=== PATIENT | male | born 1965 | race Caucasian/White ===

== ENCOUNTER 2016-06-19 09:26 | Emergency (ER) | payer OTHER ==
[~2016-06-19] VITALS: Ht 157.5 cm; Wt 48.0 kg
[~2016-06-19 09:26] MED LIST: APIX5TAB PO; ASPI-664 PO; CALC0.255 PO; CHOL20003 PO; ESOM40CA PO; HYDR4TAB18 PO
[2016-06-19 09:33] VITALS: Ht 157.5 cm; Wt 48.0 kg
[2016-06-19] MEDS ORDERED: HYDROmorphONE 1 MG/ML SYG IV STA ×2 (10:08→11:58)
[2016-06-19 11:00] LABS: INR 1.05; PROTIME 13.7 Sec (12.2-14.2); PT RATIO 1.1
[2016-06-19 11:01] LABS: PARTIAL THROMBOPLASTIN TIME 37.9 Sec (25.0-35.0)
[2016-06-19 11:03] LABS: CHLORIDE 97 mmol/L (97-110); POTASSIUM 4.3 mmol/L (3.5-5.1); SODIUM 141 mmol/L (135-144)
[2016-06-19 11:06] LABS: ANION GAP 27 (8-16); BLOOD UREA NITROGEN 68 mg/dl (7-20); CARBON DIOXIDE 21 mmol/L (21-31); CREATININE 9.24 mg/dl (0.61-1.24)
[2016-06-19 11:07] LABS: CALCIUM 7.3 mg/dl (8.4-10.2); GLUCOSE 84 mg/dl (70-220)
[2016-06-19 11:28] LABS: TROPONIN-I < 0.012 ng/ml (0.00-0.12)
--- NOTE | 2016-06-19 11:29 | RADRPT ---
PROCEDURE: Chest x-ray CLINICAL INDICATION: Pain. TECHNIQUE: One-view frontal. COMPARISON: 05/20/2016 FINDINGS: The cardiac silhouette is normal. No infiltrates are noted. No hilar abnormalities are identified. No pneumothorax or pleural effusions are visualized. Tunneled left jugular approach dialysis catheter with the tip in the right atrium is again noted. Mild aortic calcification/atherosclerosis is noted. IMPRESSION: 1. No active cardiopulmonary changes. RPTAT: HH .Say Quintana MD, MD Date Time Electronically viewed and signed by .Say Quintana MD, MD on 06/19/2016 11:29 .G/
--- NOTE | 2016-06-19 11:51 | RADRPT ---
PROCEDURE: CT Brain without contrast. CLINICAL INDICATION: Headache, syncope TECHNIQUE: Routine CT scan of the brain was performed on a high resolution multi detector scanner without intravenous contrast. One or more of the following dose reduction techniques were used: Auto mated exposure control; Adjustment of the mA and/or kV according to patient size; Use of iterative r econstruction technique. CTDI = 44 mGy. DLP = 720 mGy-cm. COMPARISON: No prior relevant examinations are available for comparison. FINDINGS: Hemorrhage: No evidence of intracranial hemorrhage. Acute ischemic changes: No evidence of acute ischemic changes. Mass effect/Midline shift: None. Parenchymal volume: Within normal limits for age. Ventricular system: Concordant with parenchymal volume. Chronic changes: Mild chronic-appearing microvascular ischemic changes of the supratentorial white m atter. Small chronic appearing lacunar infarcts versus dilated perivascular spaces of the bilateral basal ganglia are present measuring 1 - 3 mm.Atherosclerotic calcifications of the cavernous portion s of both internal carotid arteries are present. Extracranial soft tissues: Unremarkable. Calvarium: No fractures. 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 Paranasal sinuses: Visualized paranasal sinuses are clear. Mastoid air cells: Visualized mastoid air cells are clear. IMPRESSION: No acute intracranial abnormalities. Mild chronic-appearing microvascular ischemic changes of the supratentorial white matter with dilate d perivascular spaces versus small chronic lacunar infarcts of the bilateral basal ganglia. RPTAT: AADD .Ry Mace MD, MD Date Time Electronically viewed and signed by .Ry Mace MD, on 06/19/2016 11:50 .B/
--- NOTE | 2016-06-19 12:01 | ERD ---
ER Documentation Chief Complaint Date/Time DATE: 06/19/16 TIME: 11:59 Chief Complaint SYNCOPE - HIT HIS HEAD ; FEELS DIZZY; NAUSEA AND HEAD PAIN HPI This is a 51-year-old male who presents to the emergency room for evaluation of a syncopal episode. The patient states that he was walking to the refrigerator felt dizzy and the next he knew he woke up on the ground. The patient does state that he has a history of hypertension and end-stage renal disease. He is supposed to go to dialysis today however he called his dialysis center and they told him to come to the emergency room for evaluation of syncope. This patient is denying any active chest pain or palpitations at this time. ROS All systems reviewed and are negative except as per history of present illness. Medications Home Meds Active Scripts Aspirin* (Aspirin* EC) 81 Mg Tablet., 81 MG PO DAILY, #100 TAB Prov:DAYDAY DODSON MD 05/03/16 Apixaban* (Eliquis*) 5 Mg Tablet, 2.5 MG PO BID for 90 Days, #180 TAB Prov:DAYDAY DODSON MD 05/03/16 Calcitriol* (Rocaltrol*) 0.25 Mcg Cap, 0.75 MCG PO BID for 30 Days, BOTTLE Prov:PHAN FITZGERALD MD 10/10/14 Reported Medications Hydromorphone Hcl* (Dilaudid*) 4 Mg Tablet, 4 MG PO QID Y for PAIN, TAB 02/20/16 Esomeprazole Mag Trihydrate (Nexium) 40 Mg Capsule.dr, 40 MG PO DAILY, CAP 03/05/15 Cholecalciferol (Vitamin D3) (VITAMIN D-3) 2,000 Unit Capsule, 2000 UNIT PO DAILY 11/08/14 Allergies Allergies: Coded Allergies: morphine (Verified Allergy, Mild, 05/20/16) PMhx/Soc History of Surgery: Yes (l. permacath placved,i&d of neck) Anesthesia Reaction: Yes (,vomiting) Hx Neurological Disorder: Yes (syncope) Hx Respiratory Disorders: No Hx Cardiac Disorders: Yes (htn) Hx Psychiatric Problems: Yes (depression) Hx Miscellaneous Medical Probl: Yes (gastritis, diverticulosis, renal failure with dialysis tues, thrus, sat) Hx Alcohol Use: No Hx Substance Use: No Hx Tobacco Use: No Smoking Status: Never smoker Physical Exam Vitals Vital Signs Date Time Temp Pulse Resp B/P Pulse Ox O2 Delivery O2 Flow Rate FiO2 06/19/16 09:33 97.0 97 19 129/78 98 Physical Exam INITIAL VITAL SIGNS: Reviewed by me GENERAL: The patient is well developed and appropriate for usual state of health in no apparent distress HEENT: Pupils equal, round, and reactive to light. EOMI. There is no scleral icterus. NECK: C-spine is soft and supple, there is no meningismus. There is no cervical lymphadenopathy. LUNGS: Clear to auscultation bilaterally. There are no rales, wheezes or rhonchi. HEART: Regular rate and rhythm, no murmurs, clicks, rubs or gallops. ABDOMEN: Soft, non-tender, non-distended. There are bowel sounds in all four quadrants. No rebound or guarding. EXTREMITIES: There is no peripheral cyanosis or edema. No focal swelling or erythema. NEUROLOGICAL: The patient moves all four extremities with 5/5 strength. Cranial nerves II - XII are intact. Normal gait. Alert and oriented SKIN: Dialysis catheter in the left chest wall, there is no apparent rash or petechiae. HEME/LYMPHATIC: There is no evidence of excessive bruising or lymphedema. PSYCHIATRIC: The patient does not appear anxious or depressed. Result Diagram: 06/19/16 1030 Results 24 hrs Laboratory Tests Test 06/19/16 10:30 Activated Partial Thromboplast Time 37.9Sec Anion Gap 27 Blood Urea Nitrogen 68mg/dl Calcium Level 7.3mg/dl Carbon Dioxide Level 21mmol/L Chloride Level 97mmol/L Creatinine 9.24mg/dl Glucose Level 84mg/dl INR International Normalized Ratio 1.05 Potassium Level 4.3mmol/L Prothrombin Time 13.7Sec Prothrombin Time Ratio 1.1 Sodium Level 141mmol/L Troponin I < 0.012ng/ml Current Medications Medications (Trade) Dose Ordered Sig/Evelina Route PRN Reason Start Time Stop Time Status Last Admin Dose Admin Hydromorphone HCl (Dilaudid) 0.5 mg ONCE STAT IV 06/19/16 10:08 06/19/16 10:09 DC 06/19/16 10:35 Procedures/MDM EKG: Rate/Rhythm: [Normal Sinus Rhythm] QRS, ST, T-waves: [No changes consistent w/ acute ischemia] Impression: [No evidence of ischemia or arrhythmia] Chest X-ray 1V Interpreted by me: Soft Tissue: No acute abnormalities Bones: No acute abnormalities Mediastinum/Cardiac Silhouette/Lungs: [No acute abnormalities] CT head without: No stroke no bleed This 51-year-old male presents to the emergency room for evaluation of a syncopal episode. This patient has a nonischemic EKG, normal troponin. His x- rays do not reveal any pulmonary edema. CT was has not revealed any stroke or bleed. This patient will be transferred under the care of Dr. Eng at [facility]. This patient's pain is controlled with Dilaudid. Departure Diagnosis: Primary Impression: Syncope Additional Impression: Chronic pain Condition: Stable SYL DYKES DO Jun 19, 2016 12:01
[2016-06-19 12:07] LABS: BASOPHILS % 0.4 % (0.0-2.0); EOSINOPHILS # 0.1 10^3/ul (0.0-0.5); EOSINOPHILS % 1.8 % (0.0-7.0); HEMATOCRIT 42.7 % (42.0-52.0); HEMOGLOBIN 13.4 g/dl (14.0-18.0); LYMPHOCYTES # 1.4 10^3/ul (0.8-2.9); LYMPHOCYTES % 17.8 % (15.0-51.0); MEAN CORPUSCULAR HEMOGLOBIN 24.6 pg (29.0-33.0); MEAN CORPUSCULAR HGB CONC 31.3 g/dl (32.0-37.0); MEAN CORPUSCULAR VOLUME 78.7 fl (82.0-101.0); MEAN PLATELET VOLUME 7.9 fl (7.4-10.4); MONOCYTE # 0.9 10^3/ul (0.3-0.9); MONOCYTES % 11.3 % (0.0-11.0); NEUTROPHIL # 5.2 10^3/ul (1.6-7.5); NEUTROPHILS % 68.7 % (39.0-77.0); PLATELET COUNT 426 10^3/UL (140-440); RED BLOOD COUNT 5.42 10^6/ul (4.70-6.10); RED CELL DISTRIBUTION WIDTH 18.9 % (11.5-14.5); UNCORRECTED WBC 7.6 10^3/ul (4.8-10.8); WHITE BLOOD COUNT 7.6 10^3/ul (4.8-10.8)
[2016-06-19 12:10] LABS: CONDITION 1; LH ANALYZER COMMENTS 1
[2016-06-19 13:12] VITALS: BP 95/63; PULSE 80; RESP 18; TEMP 98.2
== END 2016-06-19 13:30 | disposition short-term general hospital (02) ==
LOC: E/R 09:26
DX: R55 Syncope and collapse (principal); G89.29 Other chronic pain; I12.0 Hypertensive chronic kidney disease with stage 5 chronic kidney disease or end stage renal disease; N18.6 End stage renal disease; Z99.2 Dependence on renal dialysis; Z79.82 Long term (current) use of aspirin
CPT/HCPCS: 36415; 70450; 71010; 80048; 84484; 85025; 85610; 85730; 93005; 96374; 96376; J1170; Z7502

== ENCOUNTER 2016-07-20 14:58 | Emergency (ER) | payer OTHER ==
[~2016-07-20] VITALS: Wt 45.6 kg
[2016-07-20] MEDS ORDERED: ACETAMINOPHEN 325 MG TAB PO ONE (16:30)
[2016-07-20 16:37] LABS: BASOPHILS % 0.3 % (0.0-2.0); EOSINOPHILS % 0.3 % (0.0-7.0); HEMATOCRIT 49.9 % (42.0-52.0); HEMOGLOBIN 15.6 g/dl (14.0-18.0); LYMPHOCYTES # 1.3 10^3/ul (0.8-2.9); LYMPHOCYTES % 12.8 % (15.0-51.0); MEAN CORPUSCULAR HEMOGLOBIN 24.9 pg (29.0-33.0); MEAN CORPUSCULAR HGB CONC 31.4 g/dl (32.0-37.0); MEAN CORPUSCULAR VOLUME 79.4 fl (82.0-101.0); MONOCYTE # 0.4 10^3/ul (0.3-0.9); MONOCYTES % 4.5 % (0.0-11.0); NEUTROPHIL # 8.1 10^3/ul (1.6-7.5); NEUTROPHILS % 82.1 % (39.0-77.0); PLATELET COUNT 400 10^3/UL (140-440); RED BLOOD COUNT 6.28 10^6/ul (4.70-6.10); UNCORRECTED WBC 9.9 10^3/ul (4.8-10.8); WHITE BLOOD COUNT 9.9 10^3/ul (4.8-10.8)
[2016-07-20 16:38] LABS: CONDITION 1; LH ANALYZER COMMENTS 1
[2016-07-20 16:47] LABS: INR 1.13; PROTIME 14.5 Sec (12.2-14.2); PT RATIO 1.1
--- NOTE | 2016-07-20 16:49 | RADRPT ---
PROCEDURE: CT Brain without. CLINICAL INDICATION: Headache, syncope. TECHNIQUE: A CT of the brain was performed on multidetector high-resolution CT scanner utilizing a xial sections from the skull base through the vertex without contrast. The scan was reviewed in sof t tissue brain and high frequency resolution bone algorithm windows. Images were reviewed on a high -resolution PACS workstation. One or more the following does reduction techniques were utilized: Aut omated exposure control, adjustment of the mA/ or kV according to patient's size, or use of iterativ e reconstruction technique. The exam CTDI and the DLP are not provided. COMPARISON: Brain CT 06/19/2016. FINDINGS: The ventricles and sulci are age-appropriate. There is no intracranial hemorrhage, mass effect or m idline shift. No abnormal intra-axial or extra-axial fluid collections are seen. The machado/white mat ter differentiation is preserved. There are mild scattered foci of hypoattenuation in the white matter, which are nonspecific in etiol ogy but likely reflect chronic small vessel ischemic changes. There are moderate intracranial vascu lar calcifications consistent with atherosclerosis. The visualized paranasal sinuses are essentially clear. IMPRESSION: 1. No acute intracranial hemorrhage, transcortical infarction or mass effect. 2. Moderate intracranial atherosclerosis and mild chronic small vessel ischemic changes. RPTAT: HH .Rashel Morales MD, MD Date Time Electronically viewed and signed by .Rashel Morales MD, MD on 07/20/2016 16:48 .N/
[2016-07-20 16:50] LABS: CHLORIDE 92 mmol/L (97-110); POTASSIUM 4.9 mmol/L (3.5-5.1); SODIUM 140 mmol/L (135-144)
[2016-07-20 16:52] LABS: CREATININE 6.57 mg/dl (0.61-1.24)
[2016-07-20 16:53] LABS: ANION GAP 23 (8-16); BLOOD UREA NITROGEN 46 mg/dl (7-20); CARBON DIOXIDE 30 mmol/L (21-31); GLUCOSE 120 mg/dl (70-220)
[2016-07-20 16:54] LABS: CALCIUM 8.8 mg/dl (8.4-10.2)
--- NOTE | 2016-07-20 17:02 | RADRPT ---
PROCEDURE: Chest x-ray CLINICAL INDICATION: Chest pain TECHNIQUE: Chest single view COMPARISON: 06/19/2016 FINDINGS: As before there is a left chest dialysis catheter. The heart is normal in size. Stable atherosclero tic aortic calcification seen. The pulmonary vessels are normal in caliber. The lungs are clear. T he costophrenic angles are sharp. The visualized bony thorax is unremarkable. There is surgical cli ps in the left axilla. IMPRESSION: No acute cardiopulmonary disease. Stable atherosclerotic aortic calcification Dialysis catheter RPTAT: HH .Bhaskar Prieto MD, MD Date Time Electronically viewed and signed by .Bhaskar Prieto MD, MD on 07/20/2016 17:02 .W/
[2016-07-20 17:11] LABS: TROPONIN-I < 0.012 ng/ml (0.00-0.12)
--- NOTE | 2016-07-20 17:15 | ERD ---
ER Documentation Chief Complaint Date/Time DATE: 07/20/16 TIME: 17:11 Chief Complaint HEAD AND BACK PAIN FROM SYNCOPE 2 TIMES TODAY. NO NEURO DEF HPI This is a 51-year-old male presents to the emergency room after he had a syncopal episode today. The patient states that he stood up quickly and was feeling dizzy and momentarily passed out. He does state he fell forward and hit his head. The patient does say he is on Eliquis. The patient came to the ER for evaluation. He states he is having pain all over his body at this point and wants Dilaudid due to the fact that that is the only medication that will help him. ROS All systems reviewed and are negative except as per history of present illness. Medications Home Meds Active Scripts Aspirin* (Aspirin* EC) 81 Mg Tablet., 81 MG PO DAILY, #100 TAB Prov:DAYDAY DODSON MD 05/03/16 Apixaban* (Eliquis*) 5 Mg Tablet, 2.5 MG PO BID for 90 Days, #180 TAB Prov:DAYDAY DODSON MD 05/03/16 Calcitriol* (Rocaltrol*) 0.25 Mcg Cap, 0.75 MCG PO BID for 30 Days, BOTTLE Prov:PHAN FITZGERALD MD 10/10/14 Reported Medications Hydromorphone Hcl* (Dilaudid*) 4 Mg Tablet, 4 MG PO QID Y for PAIN, TAB 02/20/16 Esomeprazole Mag Trihydrate (Nexium) 40 Mg Capsule.dr, 40 MG PO DAILY, CAP 03/05/15 Cholecalciferol (Vitamin D3) (VITAMIN D-3) 2,000 Unit Capsule, 2000 UNIT PO DAILY 11/08/14 Allergies Allergies: Coded Allergies: morphine (Verified Allergy, Mild, 05/20/16) PMhx/Soc History of Surgery: Yes (l. permacath placved,i&d of neck) Anesthesia Reaction: Yes (,vomiting) Hx Neurological Disorder: Yes (syncope) Hx Respiratory Disorders: No Hx Cardiac Disorders: Yes (htn) Hx Psychiatric Problems: Yes (depression) Hx Miscellaneous Medical Probl: Yes (gastritis, diverticulosis, renal failure with dialysis tues, thrus, sat) Hx Alcohol Use: No Hx Substance Use: No Hx Tobacco Use: No Smoking Status: Never smoker Physical Exam Vitals Vital Signs Date Time Temp Pulse Resp B/P Pulse Ox O2 Delivery O2 Flow Rate FiO2 07/20/16 16:18 Nasal Cannula 2 07/20/16 15:02 98.2 100 20 117/81 97 Physical Exam INITIAL VITAL SIGNS: Reviewed by me GENERAL: The patient is frail-appearing older gentleman HEENT: Pupils equal, round, and reactive to light. EOMI. There is no scleral icterus. NECK: C-spine is soft and supple, there is no meningismus. There is no cervical lymphadenopathy. LUNGS: Clear to auscultation bilaterally. There are no rales, wheezes or rhonchi. HEART: Regular rate and rhythm, no murmurs, clicks, rubs or gallops. ABDOMEN: Soft, non-tender, non-distended. There are bowel sounds in all four quadrants. No rebound or guarding. EXTREMITIES: There is no peripheral cyanosis or edema. No focal swelling or erythema. NEUROLOGICAL: The patient moves all four extremities with 5/5 strength. Cranial nerves II - XII are intact. Normal gait. Alert and oriented SKIN: There is no apparent rash or petechiae. HEME/LYMPHATIC: There is no evidence of excessive bruising or lymphedema. PSYCHIATRIC: The patient does not appear anxious or depressed. Result Diagram: 07/20/16 1623 07/20/16 1623 Results 24 hrs Laboratory Tests Test 07/20/16 16:23 Activated Partial Thromboplast Time Pending Anion Gap 23 Basophils # 0.010^3/ul Basophils % 0.3% Blood Morphology Comment Blood Urea Nitrogen 46mg/dl Calcium Level 8.8mg/dl Carbon Dioxide Level 30mmol/L Chloride Level 92mmol/L Creatinine 6.57mg/dl Eosinophils # 0.010^3/ul Eosinophils % 0.3% Glucose Level 120mg/dl Hematocrit 49.9% Hemoglobin 15.6g/dl INR International Normalized Ratio 1.13 Lymphocytes # 1.310^3/ul Lymphocytes % 12.8% Mean Corpuscular Hemoglobin 24.9pg Mean Corpuscular Hemoglobin Concent 31.4g/dl Mean Corpuscular Volume 79.4fl Mean Platelet Volume 8.0fl Monocytes # 0.410^3/ul Monocytes % 4.5% Neutrophils # 8.110^3/ul Neutrophils % 82.1% Nucleated Red Blood Cells # 0.010^3/ul Nucleated Red Blood Cells % 0.0/100WBC Platelet Count 65848^3/UL Potassium Level 4.9mmol/L Prothrombin Time 14.5Sec Prothrombin Time Ratio 1.1 Red Blood Count 6.2810^6/ul Red Cell Distribution Width 20.0% Sodium Level 140mmol/L Troponin I Pending White Blood Count 9.910^3/ul Current Medications Medications (Trade) Dose Ordered Sig/Evelina Route PRN Reason Start Time Stop Time Status Last Admin Dose Admin Acetaminophen (Tylenol Tab) 650 mg ONCE ONCE PO 07/20/16 16:30 07/20/16 16:31 DC Procedures/MDM CT head without: 1. No acute intracranial hemorrhage, transcortical infarction or mass effect. 2. Moderate intracranial atherosclerosis and mild chronic small vessel ischemic changes. Chest X-ray 1V Interpreted by me: Soft Tissue: No acute abnormalities Bones: No acute abnormalities Mediastinum/Cardiac Silhouette/Lungs: [No acute abnormalities] EKG: Rate/Rhythm: [Normal Sinus Rhythm] QRS, ST, T-waves: [No changes consistent w/ acute ischemia] Impression: [No evidence of ischemia or arrhythmia] This 51-year-old male presents to the ER for evaluation of a ground-level fall and syncope. When I evaluated him he is ambulating ER without difficulty, no neuro deficits. The patient states that he would like Dilaudid for pain. I advised him Dilaudid is not indicated for his condition. This patient was given 25 g of IV fentanyl. The patient's EKG is nonischemic, CT of the head is normal, he has no focal neurological deficits, chest x-ray is normal lab work is within normal limits. Departure Diagnosis: Primary Impression: Syncope Additional Impression: Total body pain Condition: Stable DONISSYL MURDOCK Jul 20, 2016 17:15
[2016-07-20] MEDS ORDERED: HYDR-906 PO (17:16)
[2016-07-20] MEDS ORDERED: FENTAnyl 50 MCG/ML VIAL IV ONE (17:30)
[2016-07-20 17:32] VITALS: BP 110/56; PULSE 89; RESP 20
[2016-07-20 18:41] LABS: PARTIAL THROMBOPLASTIN TIME > 180.0 Sec (25.0-35.0)
== END 2016-07-20 17:34 | disposition home or self-care (01) ==
LOC: E/R 14:58
DX: R55 Syncope and collapse (principal); R52 Pain, unspecified; I12.0 Hypertensive chronic kidney disease with stage 5 chronic kidney disease or end stage renal disease; N18.6 End stage renal disease; W18.39XA Other fall on same level, initial encounter; Y92.9 Unspecified place or not applicable; Z99.2 Dependence on renal dialysis; Z79.82 Long term (current) use of aspirin; Z79.01 Long term (current) use of anticoagulants
CPT/HCPCS: 36415; 70450; 71010; 80048; 84484; 85025; 85610; 85730; 93005; 96374; J3010; Z7502

== ENCOUNTER 2016-07-22 14:55 | Inpatient (IN) | payer OTHER ==
[~2016-07-22] VITALS: Ht 157.5 cm; Wt 47.6 kg
[~2016-07-22 14:55] MED LIST changes: -CALC0.255 PO; -CHOL20003 PO; +HYDR-906 PO; -HYDR4TAB18 PO
[2016-07-22] MEDS ORDERED: CALC0.5C2 PO (19:12)
[2016-07-22] MEDS ORDERED: ONDA-43 PO (19:12)
[2016-07-22] MEDS ORDERED: ZOLP5TAB6 PO (19:13)
[2016-07-22] MEDS ORDERED: MAG355OR15 PO (19:14)
[2016-07-22] MEDS ORDERED: FOLI-49 PO (19:15)
[2016-07-22] MEDS ORDERED: CHOL100062 PO (19:15)
[2016-07-22] MEDS ORDERED: NEPH PO (19:16)
[2016-07-22] MEDS ORDERED: HYDROmorphONE 1 MG/ML SYG IV STA ×2 (19:33→20:52)
[2016-07-22] MEDS ORDERED: CEFEPIME 2GM/50 ML (PMX) 50 ML IVPB STA (19:33)
[2016-07-22] MEDS ORDERED: VANCOMYCIN 1 GM (PMX) 250 ML IVPB STA (19:33)
[2016-07-22] MEDS ORDERED: SODIUM CHLORIDE 0.9% 1L BAG IV* STA (19:52)
[2016-07-22 19:57] LABS: ADD SCAN DIFF NO
--- NOTE | 2016-07-22 20:00 | RADRPT ---
PROCEDURE: XR Chest AP portable CLINICAL INDICATION: Possible sepsis TECHNIQUE: An AP portable radiograph of the chest was submitted. COMPARISON: 07/20/2016 FINDINGS: Support Hardware: The left-sided dialysis catheter is stable in position with the tip projecting to the right atrium. Cardiovascular: The cardiovascular silhouette appears unremarkable except for atherosclerotic change of the aorta. Lung Lucio: Slight pleural parenchymal scarring is seen in the pulmonary apices and a suboptimal in spiration slightly compresses the lung lucio but no alveolar infiltrate is evident. Pleural Spaces: No pneumothorax or pleural effusion is identified. Osseous Structures: The osseous structures appear intact. Soft Tissues: Surgical nelli project to the left axilla and through the neck. IMPRESSION: 1. The left-sided dialysis catheter is stable in positioning. 2. Atherosclerotic aorta. 3. Minimal pleural parenchymal scarring again seen at the pulmonary apices. 4. Surgical nelli again projects to the left axilla and through the neck. Physician Argenis Date Time Electronically viewed and signed by Physician Argenis on 07/22/2016 19:59 /
[2016-07-22 20:02] LABS: BASOPHILS % 0.4 % (0.0-2.0); EOSINOPHILS # 0.1 10^3/ul (0.0-0.5); EOSINOPHILS % 0.5 % (0.0-7.0); HEMATOCRIT 47.9 % (42.0-52.0); HEMOGLOBIN 14.5 g/dl (14.0-18.0); LYMPHOCYTES # 1.4 10^3/ul (0.8-2.9); LYMPHOCYTES % 14.5 % (15.0-51.0); MEAN CORPUSCULAR HEMOGLOBIN 24.7 pg (29.0-33.0); MEAN CORPUSCULAR HGB CONC 30.3 g/dl (32.0-37.0); MEAN CORPUSCULAR VOLUME 81.5 fl (82.0-101.0); MEAN PLATELET VOLUME 9.4 fl (7.4-10.4); MONOCYTE # 0.6 10^3/ul (0.3-0.9); MONOCYTES % 6.2 % (0.0-11.0); NEUTROPHIL # 7.5 10^3/ul (1.6-7.5); NEUTROPHILS % 77.9 % (39.0-77.0); PLATELET COUNT 407 10^3/UL (140-415); RED BLOOD COUNT 5.88 10^6/ul (4.70-6.10); RED CELL DISTRIBUTION WIDTH 18.6 % (11.5-14.5); WHITE BLOOD COUNT 9.6 10^3/ul (4.8-10.8)
[2016-07-22 20:17] LABS: INR 0.95; PROTIME 12.7 Sec (12.2-14.2)
[2016-07-22 20:18] LABS: PARTIAL THROMBOPLASTIN TIME 44.9 Sec (25.0-35.0)
[2016-07-22 20:19] LABS: ALBUMIN 4.2 g/dl (3.3-4.9)
[2016-07-22 20:20] LABS: CHLORIDE 93 mmol/L (97-110); SODIUM 141 mmol/L (135-144)
[2016-07-22 20:22] LABS: CREATININE 8.29 mg/dl (0.61-1.24)
[2016-07-22 20:23] LABS: ALANINE AMINOTRANSFERASE 19 IU/L (13-69); ALBUMIN/GLOBULIN RATIO 1.31; ALKALINE PHOSPHATASE 165 IU/L (42-121); ANION GAP 24 (8-16); ASPARTATE AMINO TRANSFERASE 17 IU/L (15-46); BLOOD UREA NITROGEN 52 mg/dl (7-20); CALCIUM 7.8 mg/dl (8.4-10.2); CARBON DIOXIDE 29 mmol/L (21-31); GLUCOSE 109 mg/dl (70-220); TOTAL PROTEIN 7.4 g/dl (6.1-8.1)
[2016-07-22 20:43] LABS: TROPONIN-I < 0.010 ng/ml (0.00-0.12)
[2016-07-22] MEDS ORDERED: ONDANSETRON 4 MG INJ IV PRN (21:00)
[2016-07-22] MEDS ORDERED: ACETAMINOPHEN 325 MG TAB PO PRN (21:00)
[2016-07-22] MEDS ORDERED: HYDROmorphONE 1 MG/ML SYG IV PRN (21:00)
--- NOTE | 2016-07-22 23:22 | ERA ---
ER Documentation Chief Complaint Date/Time DATE: 07/22/16 TIME: 23:15 Chief Complaint dialysis access catheter to right upper chest clogged. unable to dialize HPI 51-year-old male presenting with pain at his left chest HD catheter site. Patient has a history of end-stage renal disease and is on hemodialysis. 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 He had his dialysis catheter placed 6-7 months ago by . For the past 3 days he has had progressive pain to the left upper chest and it was unbearable today during dialysis. He was unable to complete his dialysis and came to the ER. He denies any fevers or chills. No nausea, vomiting, shortness of breath. No numbness or tingling down his arms. Pain is a 10 out of 10, aching, nonradiating. ROS All systems reviewed and are negative except as per history of present illness. Medications Home Meds Active Scripts Hydrocodone/Acetaminophen (Melfa 5-325 Tablet) 1 Each Tablet, 1 TAB PO Q6H Y for PAIN, #15 TAB Prov:SYL DYKES DO 07/20/16 Apixaban* (Eliquis*) 5 Mg Tablet, 2.5 MG PO BID for 90 Days, #180 TAB Prov:DAYDAY DODSON MD 05/03/16 Reported Medications Multivit/Ca Carb/B Cmplx/Fa* (Madison-Raul*) 1 Tab Tab, 1 TAB PO DAILY, TAB 07/22/16 Cholecalciferol* (Vitamin D3*) 1,000 Unit Tablet, 2000 UNIT PO DAILY, TAB 07/22/16 Folic Acid* (Folic Acid*) 1 Mg Tablet, 1 MG PO DAILY, TAB 07/22/16 Mag Hydrox/Al Hydrox/Simeth (Antacid Plus Anti-Gas Liquid) 355 Ml Oral.susp, 10 ML PO TID 07/22/16 Zolpidem Tartrate* (Zolpidem Tartrate*) 5 Mg Tablet, 5 MG PO QHS Y for INSOMNIA , #30 TAB 07/22/16 Ondansetron Hcl* (Zofran*) 4 Mg Tab, 4 MG PO BID Y for NAUSEA AND OR VOMITING, TAB 07/22/16 Calcitriol* (Rocaltrol*) 0.5 Mcg Capsule, 0.5 MCG PO DAILY, CAP 07/22/16 Esomeprazole Mag Trihydrate (Nexium) 40 Mg Capsule.dr, 40 MG PO DAILY, CAP 03/05/15 Discontinued Reported Medications Hydromorphone Hcl* (Dilaudid*) 4 Mg Tablet, 4 MG PO QID Y for PAIN, TAB 02/20/16 Cholecalciferol (Vitamin D3) (VITAMIN D-3) 2,000 Unit Capsule, 2000 UNIT PO DAILY 11/08/14 Discontinued Scripts Aspirin* (Aspirin* EC) 81 Mg Tablet., 81 MG PO DAILY, #100 TAB Prov:DAYDAY DODSON MD 05/03/16 Calcitriol* (Rocaltrol*) 0.25 Mcg Cap, 0.75 MCG PO BID for 30 Days, BOTTLE Prov:PHAN FITZGERALD MD 10/10/14 Allergies Allergies: Coded Allergies: morphine (Verified Allergy, Mild, 07/22/16) PMhx/Soc History of Surgery: Yes (l. permacath placved,i&d of neck) Anesthesia Reaction: Yes (,vomiting) Hx Neurological Disorder: Yes (syncope) Hx Respiratory Disorders: No Hx Cardiac Disorders: Yes (htn) Hx Psychiatric Problems: Yes (depression) Hx Miscellaneous Medical Probl: Yes (gastritis, diverticulosis, renal failure with dialysis tues, thrus, sat) Hx Alcohol Use: No Hx Substance Use: No Hx Tobacco Use: No Smoking Status: Never smoker FmHx Family History: No diabetes Physical Exam Vitals Vital Signs Date Time Temp Pulse Resp B/P Pulse Ox O2 Delivery O2 Flow Rate FiO2 07/22/16 21:10 98.7 122 20 83/62 100 Room Air 07/22/16 19:06 98.7 136 20 87/60 100 Room Air 07/22/16 14:59 98.8 96 20 137/86 99 Physical Exam Const: Nontoxic, in distress secondary to pain Head: Atraumatic Eyes: Normal Conjunctiva ENT: Normal External Ears, Nose and Mouth. Neck: Full range of motion. No meningismus. Resp: Chest wall with left HD catheter in place with surrounding erythema and purulent drainage from the insertion site. Lungs are clear to auscultation bilaterally Cardio: Regular rate and rhythm, no murmurs. 2+ radial pulses bilaterally Abd: Soft, non tender, non distended. Normal bowel sounds Skin: No petechiae or rashes Back: No midline or flank tenderness Ext: No cyanosis, or edema Neur: Awake and alert and oriented 3, strength and sensations intact in all 4 extremities Psych: Normal Mood and Affect Result Diagram: 07/22/16191407/22/161914 Results 24 hrs Laboratory Tests Test 07/22/16 19:15 07/22/16 21:26 Activated Partial Thromboplast Time 44.9Sec Alanine Aminotransferase (ALT/SGPT) 19IU/L Albumin 4.2g/dl Albumin/Globulin Ratio 1.31 Alkaline Phosphatase 165IU/L Anion Gap 24 Aspartate Amino Transf (AST/SGOT) 17IU/L Basophils # 0.010^3/ul Basophils % 0.4% Blood Urea Nitrogen 52mg/dl Calcium Level 7.8mg/dl Carbon Dioxide Level 29mmol/L Chloride Level 93mmol/L Creatinine 8.29mg/dl Direct Bilirubin 0.00mg/dl Eosinophils # 0.110^3/ul Eosinophils % 0.5% Globulin 3.20g/dl Glucose Level 109mg/dl Hematocrit 47.9% Hemoglobin 14.5g/dl INR International Normalized Ratio 0.95 Indirect Bilirubin 0.0mg/dl Lactic Acid Level 1.6mmol/L 1.8mmol/L Lymphocytes # 1.410^3/ul Lymphocytes % 14.5% Mean Corpuscular Hemoglobin 24.7pg Mean Corpuscular Hemoglobin Concent 30.3g/dl Mean Corpuscular Volume 81.5fl Mean Platelet Volume 9.4fl Monocytes # 0.610^3/ul Monocytes % 6.2% Neutrophils # 7.510^3/ul Neutrophils % 77.9% Nucleated Red Blood Cells # 0.010^3/ul Nucleated Red Blood Cells % 0.0/100WBC Platelet Count 78569^3/UL Potassium Level 5.0mmol/L Prothrombin Time 12.7Sec Prothrombin Time Ratio 1.0 Red Blood Count 5.8810^6/ul Red Cell Distribution Width 18.6% Sodium Level 141mmol/L Total Bilirubin 0.0mg/dl Total Protein 7.4g/dl Troponin I < 0.010ng/ml White Blood Count 9.610^3/ul Current Medications Medications (Trade) Dose Ordered Sig/Evelina Route PRN Reason Start Time Stop Time Status Last Admin Dose Admin Vancomycin HCl 250 ml @ 125 mls/hr ONCE STAT IVPB 07/22/16 19:33 07/22/16 21:32 DC 07/22/16 20:38 Cefepime HCl (Maxipime 2gm/50 ml (Pmx)) 50 ml @ 100 mls/hr ONCE STAT IVPB 07/22/16 19:33 07/22/16 20:02 DC 07/22/16 20:00 Hydromorphone HCl (Dilaudid) 1 mg ONCE STAT IV 07/22/16 19:33 07/22/16 19:39 DC 07/22/16 19:53 Sodium Chloride (NS) 1,440 ml BOLUS OVER 2 HOURS STAT IV* 07/22/16 19:52 07/22/16 19:53 DC 07/22/16 20:03 Hydromorphone HCl (Dilaudid) 1 mg ONCE STAT IV 07/22/16 20:52 07/22/16 20:53 DC 07/22/16 21:25 Ondansetron HCl (Zofran Inj) 4 mg ER BRIDGE PRN IV NAUSEA AND/OR VOMITING 07/22/16 21:00 07/23/16 20:59 Acetaminophen (Tylenol Tab) 650 mg ER BRIDGE PRN PO MILD PAIN/FEVER 07/22/16 21:00 07/23/16 20:59 Hydromorphone HCl (Dilaudid) 1 mg PRN PRN IV for severe pain 07/22/16 21:00 Diphenhydramine HCl (Benadryl) 25 mg ONCE ONCE IV 07/22/16 23:30 07/22/16 23:31 Procedures/MDM EKG: Rate/Rhythm: Normal Sinus Rhythm QRS, ST, T-waves: Right axis deviation, low voltage, no changes consistent w / acute ischemia Impression: No evidence of ischemia or arrhythmia Patient is presenting with what looks like an HD catheter infection. Vitals were notable for tachycardia and borderline hypotension. However his tachycardia self resolved. He was started on IV fluids and IV antibiotics. Blood cultures were drawn. Chest x-ray was normal. Labs are consistent with chronic kidney disease. There is no leukocytosis. His lactate is within normal limits. There is no evidence of septic shock. Patient will need admission for removal of his HD catheter. Dr. Talamantes was consulted and he will see the patient tomorrow. Patient remained hemodynamically stable in the ER with improvement of his pain with IV Dilaudid. Accepting Care Team: Current data and ongoing care discussed at time of admission. Primary: Tamica Consulting: Albin Outstanding Data: none Departure Diagnosis: Primary Impression: Infection of hemodialysis catheter Qualified Code: T82.7XXA - Infection of hemodialysis catheter, initial encounter Condition: Serious CHRISTI GIBSON MD Jul 22, 2016 23:22
[2016-07-22] MEDS ORDERED: DIPHENHYDRAMINE 50 MG INJ IV ONE (23:30)
[2016-07-23] VITALS (17 sets, daily range): BP systolic 87–108; BP diastolic 47–78; PULSE 59–89; RESP 18–20; TEMP 97.9; Ht 157.5 cm; Wt 47.6 kg
[2016-07-23] MEDS ORDERED: HYDROmorphONE 1 MG/ML SYG IV ONE ×2 (03:01→05:34)
[2016-07-23] MEDS ORDERED: VANCOMYCIN IV PER PHARMACY XX SCH (04:00)
[2016-07-23] MEDS ORDERED: ACETAMINOPHEN 325 MG TAB PO PRN (04:00)
[2016-07-23] MEDS ORDERED: HYDR4TAB18 PO (06:47)
--- NOTE | 2016-07-23 08:42 | HP ---
DATE OF ADMISSION: 07/22/2016 TIME SEEN: 2300. CHIEF COMPLAINT: Infected dialysis catheter and pain around catheter site. HISTORY OF PRESENT ILLNESS: The patient is a 51-year-old male with a history of polycystic kidney d isease, end-stage renal disease, on dialysis, hypertension, gastritis, a history of secondary hyperp arathyroidism status post parathyroidectomy, a history of neck and spinal abscesses status post surg eusebia, and chronic pain syndrome, who was sent from the dialysis center for evaluation of an infected dialysis catheter. The patient was only dialyzed for 1 hour and then he was sent here. Reportedly there was pus that was noted around his insertion site, which the patient actually states he initial ly noted a week ago. He stated he has also been having severe pain around the catheter site and the re is slight erythema around it as well. Currently on my exam there is no pus, but there is some sw elling, slight erythema and severe tenderness. When he presented to the ER blood pressure was 137/86, heart rate 96, respiratory rate 20, temperatu re 98.8, oxygen saturation 99% on room air. He had been tachycardic, with a heart rate as high as 1 36 while he was in the ER, and his blood pressure has been documented to be as low as 83/62. Labora tory values show chloride 93, BUN 52, creatinine 8.29, calcium 7.8, with an albumin of 4.2, alkaline phosphatase 165. Otherwise CBC and CMP are within acceptable range. Chest x-ray shows a left-side d dialysis catheter in stable position, minimal pleural parenchymal scarring, and surgical nelli w hich project to the left axilla and through the neck. The patient was given pain medication and was started on vancomycin and cefepime. REVIEW OF SYSTEMS: A 12-point review of systems was performed and negative except as mentioned in t he HPI. PAST MEDICAL HISTORY: As per HPI. PAST SURGICAL HISTORY: As per HPI. SOCIAL HISTORY: Denied tobacco, alcohol or illicit drug use. ALLERGIES: MORPHINE. HOME MEDICATIONS: 1. Eliquis. 2. Roland. 3. Dilaudid. 4. Ambien. 5. Nexium. 6. Antacid. 7. Zofran. 8. Calcitriol. 9. Vitamin D3. 10. Folate. 11. Multivitamin. PHYSICAL EXAMINATION: VITAL SIGNS: Blood pressure 109/71, heart rate 71, respiratory 19, temperature 97.9, oxygen saturat ion 98% on room air. GENERAL: The patient is in distress due to pain in the left upper chest and the dialysis catheter s ite. He is, however, alert and oriented, and answering questions appropriately. HEENT: No obvious head deformity. Pupils are reactive to light. Extraocular muscles are intact. CARDIOVASCULAR: Regular rate and rhythm. No extra heart sounds. CHEST: Lungs are clear. There is erythema, tenderness and slight swelling in the left upper chest a t the dialysis catheter insertion site. ABDOMEN: His abdomen is soft, nontender, nondistended. Positive bowel sounds. EXTREMITIES: No edema. LABORATORY: Pertinent positives as mentioned in the HPI. IMAGING: Chest x-ray with results as mentioned in the HPI. IMPRESSION: 1. Infected dialysis catheter, with associated tenderness. 2. History of polycystic kidney disease and end-stage renal disease, on dialysis. 3. History of hypertension. 4. History of gastritis. 5. Chronic pain syndrome. 6. History of neck and spinal abscess, status post surgery. 7. History of secondary hyperparathyroidism, status post parathyroidectomy. PLAN: Dr. Talamantes, cardiothoracic surgeon, has been notified by the ER physician for possible rem oval of his dialysis catheter. In the meantime, he will be placed on broad-spectrum antibiotics. W ill send blood cultures. Will provide pain medication as needed. A nephrology consult with Dr. Isma hassan has been placed. Will continue his home medications, with adjustment as needed. Will consider a n ID consult. Further workup and management will be per clinical course. Dictated By: LACY PITTS/KAMALA Conf#: [id number] DID#: [id number]
[2016-07-23] MEDS ORDERED: HYDROmorphONE 2 MG TAB PO SCH (09:00)
--- NOTE | 2016-07-23 11:15 | PN ---
Date/Time of Note Date/Time of Note DATE: 07/23/16 TIME: 11:12 Assessment/Plan VTE Prophylaxis VTE Prophylaxis Intervention: SCD's Lines/Catheters IV Catheter Type (from [facility]): Saline Lock Urinary Cath still in place: No Assessment/Plan Chief Complaint/Hosp Course IMPRESSION: 1. Questionable infected dialysis catheter, with associated tenderness. WBCs within normal limits, patient is afebrile, follow up blood culture 2. History of polycystic kidney disease and end-stage renal disease, on dialysis. 3. History of hypertension. Well-controlled on medical management 4. History of gastritis. 5. Chronic pain syndrome. Continue pain medication as needed 6. History of neck and spinal abscess, status post surgery. 7. History of secondary hyperparathyroidism, status post parathyroidectomy. PLAN: Dr. Talamantes, cardiothoracic surgeon, has been notified by the ER physician for possible removal of his dialysis catheter. Continue broad- spectrum antibiotics. . Will provide pain medication as needed. A nephrology consult with Dr. Parks has been placed. Will continue his home medications, with adjustment as needed. Will consider an ID consult. Further workup and management will be per clinical course. Problems: Subjective 24 Hr Interval Summary Free Text/Dictation Patient complains of having pain in left anterior chest at the dialysis cath site No nausea vomiting diarrhea Denies of any shortness of breath Requesting pain medication around the clock Exam/Review of Systems Vital Signs Vitals Vital Signs Date Time Temp Pulse Resp B/P Pulse Ox O2 Delivery O2 Flow Rate FiO2 07/23/16 11:06 98.2 71 20 102/70 98 07/23/16 03:00 Room Air Intake and Output 07/22/16 07/22/16 07/23/16 15:00 23:00 07:00 Intake Total 1740 ml Balance 1740 ml Exam General: The patient is well-developed, Not in acute distress. HEENT: Atraumatic, normocephalic. The pupils are equal and round . Neck: Supple with full range of motion. Chest: Normal expansion of the thorax during inspiration, no sign of erythema or infection at the dialysis cath site Lungs: Clear to auscultation bilaterally Heart: Normal S1-S2, Regular rhythm and rate. Abdomen: Soft , nontender, nondistended , bowel sounds are present. Extremities: Normal to inspection, no edema no cyanosis Neurologic: Normal mental status,The patient is awake, alert and oriented . Results Result Diagram: 07/22/16191407/22/161914 Results 24 hrs Laboratory Tests Test 07/22/16 19:15 07/22/16 21:26 07/22/16 23:27 Activated Partial Thromboplast Time 44.9 H Alanine Aminotransferase (ALT/SGPT) 19 Albumin 4.2 Albumin/Globulin Ratio 1.31 Alkaline Phosphatase 165 H Anion Gap 24 H Aspartate Amino Transf (AST/SGOT) 17 Basophils # 0.0 Basophils % 0.4 Blood Urea Nitrogen 52 H Calcium Level 7.8 L Carbon Dioxide Level 29 Chloride Level 93 L Creatinine 8.29 H Direct Bilirubin 0.00 Eosinophils # 0.1 Eosinophils % 0.5 Globulin 3.20 Glucose Level 109 Hematocrit 47.9 Hemoglobin 14.5 INR International Normalized Ratio 0.95 Indirect Bilirubin 0.0 Lactic Acid Level 1.6 1.8 1.6 Lymphocytes # 1.4 Lymphocytes % 14.5 L Mean Corpuscular Hemoglobin 24.7 L Mean Corpuscular Hemoglobin Concent 30.3 L Mean Corpuscular Volume 81.5 L Mean Platelet Volume 9.4 Monocytes # 0.6 Monocytes % 6.2 Neutrophils # 7.5 Neutrophils % 77.9 H Nucleated Red Blood Cells # 0.0 Nucleated Red Blood Cells % 0.0 Platelet Count 407 Potassium Level 5.0 Prothrombin Time 12.7 Prothrombin Time Ratio 1.0 Red Blood Count 5.88 Red Cell Distribution Width 18.6 H Sodium Level 141 Total Bilirubin 0.0 L Total Protein 7.4 Troponin I < 0.010 White Blood Count 9.6 Medications Medications Current Medications Acetaminophen/ Hydrocodone Bitart 1 tab 1 tab Q6H PRN PO PAIN; Start 07/23/16 at 03:00 Cefepime HCl (Maxipime 1gm/50 ml (Pmx)) 50 ml @ 100 mls/hr Q24H IVPB ; Start at 20:00 Acetaminophen (Tylenol Tab) 650 mg Q6H PRN PO PAIN AND OR ELEVATED TEMP; Start 07/23/16 at 04:00 Hydromorphone HCl (Dilaudid) 1 mg Q6H PRN IV PAIN; Start 07/23/16 at 11:30; Status DEV HANSON MD Jul 23, 2016 11:15
[2016-07-23] MEDS: HYDROmorphONE 1 MG/ML SYG IV PRN ×3 (11:51→23:10)
[2016-07-23] MEDS: HYDROCODONE/APAP (5/325) TAB PO PRN ×2 (14:57→20:24)
[2016-07-23] MEDS: CEFEPIME 1GM/50 ML (PMX) 50 ML IVPB SCH (20:24)
--- NOTE | 2016-07-23 20:45 | QN ---
Documentation Comment [id number] Flaherty MD Jul 23, 2016 20:45
[2016-07-23] MEDS: ZOLPIDEM 5 MG TAB PO PRN (22:07)
[2016-07-24] VITALS (13 sets, daily range): BP systolic 105–128; BP diastolic 66–80; PULSE 66–78; RESP 18
[2016-07-24] MEDS: HYDROmorphONE 1 MG/ML SYG IV PRN ×5 (06:19→22:56)
--- NOTE | 2016-07-24 07:02 | CONS ---
DATE OF ADMISSION: 07/22/2016 DATE OF CONSULTATION: TYPE OF CONSULTATION: Nephrology. Thank you, Dr. Davey and Dr. Jauregui for kindly asking me to see this patient in consultation. Mr. Clayton Moise is a 51-year-old male who has a history of polycystic kidney disease. The patient has a history of respiratory failure due to acute pulmonary embolism, a history of ventilator-dependent respiratory failure secondary to acute pulmonary embolism, status post a history of polycythemia due to possibly polycystic kidney disease, a history of chronic narcotic dependency and chronic pain. OTHER HISTORY: Includes: 1. History of hyperparathyroidism, status post parathyroidectomy. 2. The patient also has a history of urinary tract infection. 3. A history of spinal fusion. 4. A history of spinal abscess in the past, and surgery. ALLERGY HISTORY: MORPHINE. SOCIAL HISTORY: Negative. FAMILY HISTORY: Positive for polycystic kidney disease and hypertension. MEDICATION HISTORY: The patient is on: 1. Eliquis. 2. Rocaltrol. 3. Vitamin D3. 4. Omeprazole. 5. Folic acid. 6. Hydrocodone. 7. Dilaudid. 8. Magnesium oxide. 9. Multivitamin. 10. Zofran. 11. Ambien. REVIEW OF SYSTEMS: HEENT: Unremarkable. RESPIRATORY: Unremarkable. CARDIOVASCULAR: Unremarkable. ABDOMEN: Unremarkable. EXTREMITIES: Unremarkable. CENTRAL NERVOUS SYSTEM: As mentioned above. MUSCULOSKELETAL: The patient has severe pain in the left upper lobe. The patient had chronic neck pain and now pain is radiating to his left upper extremity where the Perm-A-Cath is. PHYSICAL EXAMINATION: GENERAL: The patient is anxious, awake, alert, at times restless. VITAL SIGNS: Pulse 88, blood pressure systolic 90/50. HEAD: Atraumatic, normocephalic. Pupils are equal, reactive to light. No pallor or conjunctival icterus. NECK: Range of motion restricted because of the pain. CHEST: Perm-A-Cath in the chest noted. LUNGS: Clear. CARDIOVASCULAR: S1 normal. Systolic murmur heard. ABDOMEN: Soft. Bowel sounds positive. Not tender. EXTREMITIES: No cyanosis, clubbing, or edema. LABORATORY DATA: Shows hematocrit 47. Sodium 141, potassium 5. Chest x-ray shows a left-sided dialysis catheter, atherosclerotic aorta, minimal pleural and parenchymal scarring. Surgical nelli noted. IMPRESSION: 1. The patient has a malfunctioning dialysis catheter. 2. Acute on chronic pain of the left shoulder area and spine. 3. A history of spinal fusion, status post spinal abscess. 4. A history of hyperparathyroidism. 5. A history of parathyroidectomy. 6. A history of polycystic kidney disease. 7. A history of narcotic dependency . PLAN: Continue pain medications. Dialysis will be tried, with pain medications. The patient would benefit from a CT scan of the neck and the left shoulder area. The patient's and vitamin D3 will be continued. Electrolytes will be monitored. Dictated By: PHAN FITZGERALD MD BS/NTS Conf#: [id number] DID#: [id number] MTDD
[2016-07-24 07:11] LABS: ADD SCAN DIFF NO
[2016-07-24 07:23] LABS: BASOPHIL # 0.1 10^3/ul (0.0-0.1); BASOPHILS % 0.9 % (0.0-2.0); EOSINOPHILS # 0.1 10^3/ul (0.0-0.5); HEMATOCRIT 42.7 % (42.0-52.0); HEMOGLOBIN 12.6 g/dl (14.0-18.0); LYMPHOCYTES # 1.3 10^3/ul (0.8-2.9); LYMPHOCYTES % 24.8 % (15.0-51.0); MEAN CORPUSCULAR HEMOGLOBIN 24.8 pg (29.0-33.0); MEAN CORPUSCULAR HGB CONC 29.5 g/dl (32.0-37.0); MEAN CORPUSCULAR VOLUME 83.9 fl (82.0-101.0); MEAN PLATELET VOLUME 9.4 fl (7.4-10.4); MONOCYTE # 0.7 10^3/ul (0.3-0.9); MONOCYTES % 12.8 % (0.0-11.0); NEUTROPHIL # 3.2 10^3/ul (1.6-7.5); NEUTROPHILS % 59.3 % (39.0-77.0); PLATELET COUNT 341 10^3/UL (140-415); RED BLOOD COUNT 5.09 10^6/ul (4.70-6.10); RED CELL DISTRIBUTION WIDTH 18.3 % (11.5-14.5); WHITE BLOOD COUNT 5.4 10^3/ul (4.8-10.8)
[2016-07-24 07:39] LABS: POTASSIUM 5.2 mmol/L (3.5-5.1)
[2016-07-24 07:42] LABS: CREATININE 9.49 mg/dl (0.61-1.24)
[2016-07-24 07:43] LABS: CALCIUM 6.9 mg/dl (8.4-10.2)
[2016-07-24] MEDS: APIXABAN 5 MG TABLET PO SCH ×2 (09:02→20:05)
[2016-07-24] MEDS: CHOLECALCIFEROL 2,000 UNIT CAP PO SCH (09:02)
[2016-07-24] MEDS: MULTIVIT/CA CARB/B CMPLX/FA TAB PO SCH (09:02)
[2016-07-24] MEDS: CALCITRIOL 0.25 MCG CAP PO SCH (09:02)
[2016-07-24] MEDS: CALCIUM CARBONATE 500 MG CHEW TAB PO SCH ×3 (09:02→18:06)
[2016-07-24] MEDS: HYDROCODONE/APAP (5/325) TAB PO PRN (09:02)
[2016-07-24] MEDS: FOLIC ACID 1 MG TAB PO SCH (09:02)
[2016-07-24] MEDS ORDERED: VANCOMYCIN 1 GM in NS 250 ML IVPB SCH (12:00)
--- NOTE | 2016-07-24 12:07 | CONS ---
Date/Time of Note Date/Time of Note DATE: 07/24/16 TIME: 12:06 Assessment/Plan Assessment/Plan Chief Complaint/Hosp Course IMPRESSION: 1. The patient has metastatic sarcoma, status post total abdominal hysterectomy with bilateral salpingo-oophorectomy, omentectomy, status post chemotherapy, status post anemia, status post radiation treatment, completed. 2. The patient had a urinary tract infection in the past. 3 cellulites plan antibiotic Problems: Consultation Date/Type/Reason Admit Date/Time Jul 22, 2016 at 20:55 Initial Consult Date Type of Consultation: renal 24 HR Interval Summary Constitutional: other (cath site pain/redness) Exam/Review of Systems Vital Signs Vitals Vital Signs Date Time Temp Pulse Resp B/P Pulse Ox O2 Delivery O2 Flow Rate FiO2 07/24/16 11:36 98.0 68 18 105/70 98 07/24/16 04:06 Room Air Intake and Output 07/23/16 07/23/16 07/24/16 15:00 23:00 07:00 Intake Total 1360 ml 600 ml Output Total 800 ml Balance 560 ml 600 ml Exam Neck: supple Respiratory: clear to auscultation Cardiovascular: regular rate and rhythm Gastrointestinal: soft Musculoskeletal: nl extremities to inspection Extremities: normal pulses Skin: other (cath site redness+) Results Result Diagram: 07/24/16 0635 07/24/16 0635 Results 24 hrs Laboratory Tests Test 07/24/16 06:35 Anion Gap 25 H Basophils # 0.1 Basophils % 0.9 Blood Urea Nitrogen 63 H Calcium Level 6.9 L Carbon Dioxide Level 20 L Chloride Level 103 # Creatinine 9.49 H Eosinophils # 0.1 Eosinophils % 2.0 Glucose Level 88 Hematocrit 42.7 Hemoglobin 12.6 L Lymphocytes # 1.3 Lymphocytes % 24.8 Mean Corpuscular Hemoglobin 24.8 L Mean Corpuscular Hemoglobin Concent 29.5 L Mean Corpuscular Volume 83.9 Mean Platelet Volume 9.4 Monocytes # 0.7 Monocytes % 12.8 H Neutrophils # 3.2 Neutrophils % 59.3 Nucleated Red Blood Cells # 0.0 Nucleated Red Blood Cells % 0.0 Platelet Count 341 Potassium Level 5.2 H Random Vancomycin Level 15.5 Red Blood Count 5.09 Red Cell Distribution Width 18.3 H Sodium Level 143 White Blood Count 5.4 # Medications Medications Current Medications Acetaminophen/ Hydrocodone Bitart 1 tab 1 tab Q6H PRN PO PAIN Last administered on 07/24/16 09:02; Admin Dose 1 TAB; Start 07/23/16 at 03:00 Cefepime HCl (Maxipime 1gm/50 ml (Pmx)) 50 ml @ 100 mls/hr Q24H IVPB Last administered on 07/23/16 20:24; Admin Dose 100 MLS/HR; Start 07/23/16 at 20:00 Acetaminophen (Tylenol Tab) 650 mg Q6H PRN PO PAIN AND OR ELEVATED TEMP; Start 07/23/16 at 04:00 Apixaban (Eliquis) 2.5 mg BID PO Last administered on 07/24/16 09:02; Admin Dose 2.5 MG; Start 07/24/16 at 09:00 Calcitriol (Rocaltrol) 0.5 mcg DAILY PO Last administered on 07/24/16 09:02; Admin Dose 0.5 MCG; Start 07/24/16 at 09:00 Cholecalciferol (Vitamin D) 2,000 unit DAILY PO Last administered on 07/24/16 09:02; Admin Dose 2,000 UNIT; Start 07/24/16 at 09:00 Folic Acid (Folic Acid) 1 mg DAILY PO Last administered on 07/24/16 09:02; Admin Dose 1 MG; Start 07/24/16 at 09:00 Multivit/Ca Carb/ B Cmplx/FA/Prenat (Madison-Raul) 1 tab DAILY PO Last administered on 07/24/16 09:02; Admin Dose 1 TAB; Start 07/24/16 at 09:00 Zolpidem Tartrate 5 mg 5 mg QHS PRN PO INSOMNIA Last administered on 07/23/16 22:07; Admin Dose 5 MG; Start 07/23/16 at 22:00 Vancomycin HCl (Vancocin) 250 ml @ 125 mls/hr 12 IVPB Last administered on 12:01; Admin Dose 125 MLS/HR; Start 07/24/16 at 12:00; Stop 07/24/16 at 23:00 Hydromorphone HCl (Dilaudid) 1 mg Q4H PRN IV PAIN Last administered on 11:08; Admin Dose 1 MG; Start 07/24/16 at 11:00 PHAN FITZGERALD MD Jul 24, 2016 12:07
--- NOTE | 2016-07-24 13:44 | PN ---
Date/Time of Note Date/Time of Note DATE: 07/24/16 TIME: 13:41 Assessment/Plan VTE Prophylaxis VTE Prophylaxis Intervention: SCD's Lines/Catheters IV Catheter Type (from [facility]): Saline Lock Urinary Cath still in place: No Assessment/Plan Chief Complaint/Hosp Course IMPRESSION: 1. Dysfunctional dialysis catheter, with associated tenderness. WBCs within normal limits, patient is afebrile, follow up blood culture Vascular surgeon has been consulted for replacement of hemodialysis cath 2. History of polycystic kidney disease and end-stage renal disease, on dialysis. 3. History of hypertension. Well-controlled on medical management 4. History of gastritis. 5. Chronic pain syndrome. Continue pain medication as needed 6. History of neck and spinal abscess, status post surgery. 7. History of secondary hyperparathyroidism, status post parathyroidectomy. PLAN: Dr. Talamantes, cardiothoracic surgeon, has been notified by the ER physician for possible removal of his dialysis catheter. Continue broad- spectrum antibiotics. . Will provide pain medication as needed. A nephrology consult with Dr. Parks has been placed. Will continue his home medications, with adjustment as needed. Follow-up CT of the neck Further workup and management will be per clinical course. Problems: Subjective 24 Hr Interval Summary Free Text/Dictation Patient continues to complain of having pain at the hemodialysis cath site Denies of any chest pain or shortness of breath No nausea vomiting diarrhea Tolerating oral intake Upon hemodialysis it was found that his dialysis cath was not functioning Exam/Review of Systems Vital Signs Vitals Vital Signs Date Time Temp Pulse Resp B/P Pulse Ox O2 Delivery O2 Flow Rate FiO2 07/24/16 12:17 68 07/24/16 11:36 98.0 18 105/70 98 07/24/16 04:06 Room Air Intake and Output 07/23/16 07/23/16 07/24/16 15:00 23:00 07:00 Intake Total 1360 ml 600 ml Output Total 800 ml Balance 560 ml 600 ml Exam General: The patient is well-developed, Not in acute distress. HEENT: Atraumatic, normocephalic. The pupils are equal and round . Neck: Supple with full range of motion. Chest: Normal expansion of the thorax during inspiration, hemodialysis cath anterior chest with no sign of erythema Lungs: Clear to auscultation bilaterally Heart: Normal S1-S2, Regular rhythm and rate. Abdomen: Soft , nontender, nondistended , bowel sounds are present. Extremities: Normal to inspection, no edema no cyanosis Neurologic: Normal mental status,The patient is awake, alert and oriented . Results Result Diagram: 07/24/16 0635 07/24/16 0635 Results 24 hrs Laboratory Tests Test 07/24/16 06:35 Anion Gap 25 H Basophils # 0.1 Basophils % 0.9 Blood Urea Nitrogen 63 H Calcium Level 6.9 L Carbon Dioxide Level 20 L Chloride Level 103 # Creatinine 9.49 H Eosinophils # 0.1 Eosinophils % 2.0 Glucose Level 88 Hematocrit 42.7 Hemoglobin 12.6 L Lymphocytes # 1.3 Lymphocytes % 24.8 Mean Corpuscular Hemoglobin 24.8 L Mean Corpuscular Hemoglobin Concent 29.5 L Mean Corpuscular Volume 83.9 Mean Platelet Volume 9.4 Monocytes # 0.7 Monocytes % 12.8 H Neutrophils # 3.2 Neutrophils % 59.3 Nucleated Red Blood Cells # 0.0 Nucleated Red Blood Cells % 0.0 Platelet Count 341 Potassium Level 5.2 H Random Vancomycin Level 15.5 Red Blood Count 5.09 Red Cell Distribution Width 18.3 H Sodium Level 143 White Blood Count 5.4 # Medications Medications Current Medications Acetaminophen/ Hydrocodone Bitart 1 tab 1 tab Q6H PRN PO PAIN Last administered on 07/24/16 09:02; Admin Dose 1 TAB; Start 07/23/16 at 03:00 Cefepime HCl (Maxipime 1gm/50 ml (Pmx)) 50 ml @ 100 mls/hr Q24H IVPB Last administered on 07/23/16 20:24; Admin Dose 100 MLS/HR; Start 07/23/16 at 20:00 Acetaminophen (Tylenol Tab) 650 mg Q6H PRN PO PAIN AND OR ELEVATED TEMP; Start 07/23/16 at 04:00 Apixaban (Eliquis) 2.5 mg BID PO Last administered on 07/24/16 09:02; Admin Dose 2.5 MG; Start 07/24/16 at 09:00 Calcitriol (Rocaltrol) 0.5 mcg DAILY PO Last administered on 07/24/16 09:02; Admin Dose 0.5 MCG; Start 07/24/16 at 09:00 Cholecalciferol (Vitamin D) 2,000 unit DAILY PO Last administered on 07/24/16 09:02; Admin Dose 2,000 UNIT; Start 07/24/16 at 09:00 Folic Acid (Folic Acid) 1 mg DAILY PO Last administered on 07/24/16 09:02; Admin Dose 1 MG; Start 07/24/16 at 09:00 Multivit/Ca Carb/ B Cmplx/FA/Prenat (Madison-Raul) 1 tab DAILY PO Last administered on 07/24/16 09:02; Admin Dose 1 TAB; Start 07/24/16 at 09:00 Zolpidem Tartrate 5 mg 5 mg QHS PRN PO INSOMNIA Last administered on 07/23/16 22:07; Admin Dose 5 MG; Start 07/23/16 at 22:00 Vancomycin HCl (Vancocin) 250 ml @ 125 mls/hr 12 IVPB Last administered on 12:01; Admin Dose 125 MLS/HR; Start 07/24/16 at 12:00; Stop 07/24/16 at 23:00 Hydromorphone HCl (Dilaudid) 1 mg Q4H PRN IV PAIN Last administered on 11:08; Admin Dose 1 MG; Start 07/24/16 at 11:00 DEV WEEMS MD Jul 24, 2016 13:44
--- NOTE | 2016-07-24 17:54 | RADRPT ---
PROCEDURE: CT cervical spine. CLINICAL INDICATION: Neck pain/trauma. TECHNIQUE: CT scan examination of the cervical spine was performed on a [address] scanner. Sarah nal and sagittal reformatted images were obtained from the axial source images. Images were reviewe d on a high-resolution PACS workstation. Radiation dose: Total CTDIvol: 22.2 mGy. Total DLP: 523 mGy-cm. COMPARISON: CT cervical spine, 10/26/2012. FINDINGS: BONY STRUCTURE, BONY ALIGNMENT: There is status post corpectomy with metallic cage extending from C3 to C4 with anterior metallic pl ate and screws in place. There is mild scoliosis of the cervical spine. INDIVISUAL DISK SPACE LEVEL: OCCIPUT/ATLANTO/AXIAL. ARTICULATION: Occipital/atlanto/axial articulation is within normal. The li gamentous complex of the atlanto-axial articulation is unremarkable. C2/3: There is no herniated disk or bulging disk. The disk space is well maintained. No central c anal stenosis or foraminal stenosis. The facet joints are normal. C3/4: There is no herniated disk or bulging disk. The disk space is well maintained. No central ca nal stenosis or foraminal stenosis. The facet joints are normal. C4/5: There is no herniated disk or bulging disk.The disk space is well maintained. No central monika l stenosis or foraminal stenosis. The facet joints are normal. C5/6: There is no herniated disk or bulging disk. The disk space is well maintained. No central ca nal stenosis or foraminal stenosis. The facet joints are normal. C6/7: There is no herniated disk or bulging disk. The disk space is well maintained. No central ca nal stenosis or foraminal stenosis. The joints are normal. C7/T1: There is chronic stable bony erosion at the superior endplate of T1, unchanged. There is no herniated disk or bulging disk. The disk space is well-maintained. No central canal stenosis or f oraminal stenosis. The facet joints are normal. IMPRESSION: 1. Status post corpectomy with metallic cage, extending from C3 to C4 with anterior metallic plate and screws in place. Mild scoliosis of the cervical spine. 2. Normal prevertebral space. RPTAT: GG .Zay Donaldson MD, MD Date Time Electronically viewed and signed by .Zay Donaldson MD, on 07/24/2016 17:54 .Y/
--- NOTE | 2016-07-24 18:16 | RADRPT ---
PROCEDURE: CT Chest. CLINICAL INDICATION: Chest pain TECHNIQUE: CT scan of the chest without contrast was performed on the [employer] volumetric [address] [facility] without contrast. Coronal and sagittal reformatted images were obtained from the axial source images. The CTDI vol is 8.05 mGy and the DLP is 343.89 mGy-cm. COMPARISON: None. FINDINGS: A trace right pleural effusion is seen with bibasilar atelectasis. No dense consolidation is seen. Linear atelectasis is seen in the lingula as well. The mediastinum and hilum are unremarkable with out evidence for mass or lymphadenopathy. Aortic and coronary vascular calcifications are seen. A l eft-sided hemodialysis catheter is seen with the tip in the atrial caval junction. The vascular str uctures of the mediastinum are otherwise unremarkable in course and caliber. Suggestion of coronary artery stents are identified. The heart size is normal without evidence for pericardial thickening or effusion. The axillary regions, subpectoral regions, and supraclavicular regions are all unremar kable. Innumerable cysts in the bilateral kidneys and liver seen many which are calcified. A small hiatal hernia is seen. IVC filter is identified. Imaging obtained through the upper abdomen reveals no acute abnormality. A focal area of sclerosis is seen involving the right posterior T11 vertebral body which extends into the pedicle measuring 1.1 cm in size. A probable Schmorl's node i s seen in the superior endplate of L2 as well as inferior endplate of T12. No osteolytic or osteobl astic lesion is detected. Surgical clips in the right side of the neck are seen as the right thyroid lobe and isthmus are not visualized. IMPRESSION: 1. Trace right pleural effusion with bibasilar atelectasis. 2. CT findings consistent with polycystic kidney disease as described above. 3. Focal area of sclerosis in the right T11 vertebral body extending to the pedicle. Consider furt her evaluation with a bone scan as clinically warranted. 4. Small hiatal hernia. RPTAT: [facility]PN[facility] Physician Yamil Date Time Electronically viewed and signed by Physician Yamil on 07/24/2016 18:15 /
[2016-07-24] MEDS: PANTOPRAZOLE (EC) 40 MG TAB PO SCH (18:40)
[2016-07-24] MEDS: CEFEPIME 1GM/50 ML (PMX) 50 ML IVPB SCH (19:47)
[2016-07-24] MEDS: ZOLPIDEM 5 MG TAB PO PRN (22:59)
[2016-07-25] VITALS (13 sets, daily range): BP systolic 112–127; BP diastolic 56–92; PULSE 55–72; RESP 16–18
[2016-07-25] MEDS: HYDROmorphONE 1 MG/ML SYG IV PRN ×5 (04:13→20:34)
[2016-07-25] MEDS: PANTOPRAZOLE (EC) 40 MG TAB PO SCH (05:23)
[2016-07-25] MEDS ORDERED: PANTOPRAZOLE (EC) 40 MG TAB PO SCH (06:00)
[2016-07-25 07:16] LABS: ADD SCAN DIFF NO
[2016-07-25 07:33] LABS: BASOPHILS % 0.9 % (0.0-2.0); EOSINOPHILS # 0.1 10^3/ul (0.0-0.5); EOSINOPHILS % 2.4 % (0.0-7.0); HEMATOCRIT 39.6 % (42.0-52.0); HEMOGLOBIN 11.9 g/dl (14.0-18.0); LYMPHOCYTES # 1.3 10^3/ul (0.8-2.9); LYMPHOCYTES % 28.5 % (15.0-51.0); MEAN CORPUSCULAR HEMOGLOBIN 24.8 pg (29.0-33.0); MEAN CORPUSCULAR HGB CONC 30.1 g/dl (32.0-37.0); MEAN CORPUSCULAR VOLUME 82.7 fl (82.0-101.0); MEAN PLATELET VOLUME 9.7 fl (7.4-10.4); MONOCYTE # 0.5 10^3/ul (0.3-0.9); MONOCYTES % 10.7 % (0.0-11.0); NEUTROPHIL # 2.7 10^3/ul (1.6-7.5); NEUTROPHILS % 57.1 % (39.0-77.0); PLATELET COUNT 334 10^3/UL (140-415); POTASSIUM 5.2 mmol/L (3.5-5.1); RED BLOOD COUNT 4.79 10^6/ul (4.70-6.10); RED CELL DISTRIBUTION WIDTH 18.1 % (11.5-14.5); WHITE BLOOD COUNT 4.7 10^3/ul (4.8-10.8)
[2016-07-25 07:35] LABS: CREATININE 10.22 mg/dl (0.61-1.24)
[2016-07-25 07:36] LABS: CALCIUM 7.2 mg/dl (8.4-10.2)
[2016-07-25] MEDS: CALCIUM CARBONATE 500 MG CHEW TAB PO SCH ×3 (08:36→17:21)
[2016-07-25] MEDS: MULTIVIT/CA CARB/B CMPLX/FA TAB PO SCH (08:36)
[2016-07-25] MEDS: APIXABAN 5 MG TABLET PO SCH ×2 (08:36→20:34)
[2016-07-25] MEDS: CHOLECALCIFEROL 2,000 UNIT CAP PO SCH (08:36)
[2016-07-25] MEDS: FOLIC ACID 1 MG TAB PO SCH (08:36)
[2016-07-25] MEDS: CALCITRIOL 0.25 MCG CAP PO SCH (08:36)
--- NOTE | 2016-07-25 11:58 | PN ---
Date/Time of Note Date/Time of Note DATE: 07/25/16 TIME: 11:54 Assessment/Plan VTE Prophylaxis VTE Prophylaxis Intervention: SCD's Lines/Catheters IV Catheter Type (from [facility] Sal[place] Lock Urinary Cath still in place: No Assessment/Plan Chief Complaint/Hosp Course IMPRESSION: 1. Dysfunctional dialysis catheter, with associated tenderness. WBCs within normal limits, patient is afebrile, follow up blood culture Vascular surgeon has been consulted for replacement of hemodialysis cath tomorrow 07/26/2016 2. History of polycystic kidney disease and end-stage renal disease, on dialysis. 3. History of hypertension. Well-controlled on medical management 4. History of gastritis. 5. Chronic pain syndrome. Continue pain medication as needed 6. History of neck and spinal abscess, status post surgery. No evidence of infection or abscess on CT of the neck 7. History of secondary hyperparathyroidism, status post parathyroidectomy. PLAN: Dr. Talamantes, cardiothoracic surgeon, replacement of his dialysis catheter. Continue broad-spectrum antibiotics. . Will provide pain medication as needed. A nephrology consult with Dr. Parks has been placed. Will continue his home medications, with adjustment as needed. Further workup and management will be per clinical course. Problems: Subjective 24 Hr Interval Summary Free Text/Dictation Patient continues to complain of having left anterior chest discomfort at the site of dialysis catheter No shortness of breath Tolerating oral intake Patient continues to demand pain medication around the clock Exam/Review of Systems Vital Signs Vitals Vital Signs Date Time Temp Pulse Resp B/P Pulse Ox O2 Delivery O2 Flow Rate FiO2 07/25/16 11:50 98.0 67 18 119/85 98 07/25/16 04:15 Room Air Intake and Output 07/24/16 07/24/16 07/25/16 15:00 23:00 07:00 Intake Total 1050 ml Balance 1050 ml Exam General: The patient is well-developed, Not in acute distress. HEENT: Atraumatic, normocephalic. The pupils are equal and round . Neck: Supple with full range of motion. Chest: Normal expansion of the thorax during inspiration, hemodialysis cath in place and anterior chest wall, no sign of erythema or infection Lungs: Clear to auscultation bilaterally Heart: Normal S1-S2, Regular rhythm and rate. Abdomen: Soft , nontender, nondistended , bowel sounds are present. Extremities: Normal to inspection, no edema no cyanosis Neurologic: Normal mental status,The patient is awake, alert and oriented . Results Result Diagram: 07/25/16 0611 07/25/16 0611 Results 24 hrs Laboratory Tests Test 07/25/16 06:11 Anion Gap 26 H Basophils # 0.0 Basophils % 0.9 Blood Urea Nitrogen 73 H Calcium Level 7.2 L Carbon Dioxide Level 17 L Chloride Level 101 Creatinine 10.22 H Eosinophils # 0.1 Eosinophils % 2.4 Glucose Level 80 Hematocrit 39.6 L Hemoglobin 11.9 L Lymphocytes # 1.3 Lymphocytes % 28.5 Mean Corpuscular Hemoglobin 24.8 L Mean Corpuscular Hemoglobin Concent 30.1 L Mean Corpuscular Volume 82.7 Mean Platelet Volume 9.7 Monocytes # 0.5 Monocytes % 10.7 Neutrophils # 2.7 Neutrophils % 57.1 Nucleated Red Blood Cells # 0.0 Nucleated Red Blood Cells % 0.0 Platelet Count 334 Potassium Level 5.2 H Red Blood Count 4.79 Red Cell Distribution Width 18.1 H Sodium Level 139 White Blood Count 4.7 L Medications Medications Current Medications Acetaminophen/ Hydrocodone Bitart 1 tab 1 tab Q6H PRN PO PAIN Last administered on 07/24/16 09:02; Admin Dose 1 TAB; Start 07/23/16 at 03:00 Cefepime HCl (Maxipime 1gm/50 ml (Pmx)) 50 ml @ 100 mls/hr Q24H IVPB Last administered on 07/24/16 19:47; Admin Dose 100 MLS/HR; Start 07/23/16 at 20:00 Acetaminophen (Tylenol Tab) 650 mg Q6H PRN PO PAIN AND OR ELEVATED TEMP; Start 07/23/16 at 04:00 Apixaban (Eliquis) 2.5 mg BID PO Last administered on 07/25/16 08:36; Admin Dose 2.5 MG; Start 07/24/16 at 09:00 Calcitriol (Rocaltrol) 0.5 mcg DAILY PO Last administered on 07/25/16 08:36; Admin Dose 0.5 MCG; Start 07/24/16 at 09:00 Cholecalciferol (Vitamin D) 2,000 unit DAILY PO Last administered on 07/25/16 08:36; Admin Dose 2,000 UNIT; Start 07/24/16 at 09:00 Folic Acid (Folic Acid) 1 mg DAILY PO Last administered on 07/25/16 08:36; Admin Dose 1 MG; Start 07/24/16 at 09:00 Multivit/Ca Carb/ B Cmplx/FA/Prenat (Madison-Raul) 1 tab DAILY PO Last administered on 07/25/16 08:36; Admin Dose 1 TAB; Start 07/24/16 at 09:00 Zolpidem Tartrate (Ambien) 5 mg QHS PRN PO INSOMNIA Last administered on 22:59; Admin Dose 5 MG; Start 07/23/16 at 22:00 Hydromorphone HCl (Dilaudid) 1 mg Q4H PRN IV PAIN Last administered on 08:37; Admin Dose 1 MG; Start 07/24/16 at 11:00 Pantoprazole (Protonix Tab) 40 mg DAILY@06 PO Last administered on 07/25/16 05 :23; Admin Dose 40 MG; Start 07/24/16 at 19:00 DEV WEEMS MD Jul 25, 2016 11:58
--- NOTE | 2016-07-25 13:52 | CONS ---
Date/Time of Note Date/Time of Note DATE: 07/25/16 TIME: 13:50 Assessment/Plan Assessment/Plan Chief Complaint/Hosp Course IMPRESSION: 1. The patient has metastatic sarcoma, status post total abdominal hysterectomy with bilateral salpingo-oophorectomy, omentectomy, status post chemotherapy, status post anemia, status post radiation treatment, completed. 2. The patient had a urinary tract infection in the past. 3 cellulites neck plan antibiotic hd Problems: Consultation Date/Type/Reason Admit Date/Time Jul 22, 2016 at 20:55 Type of Consultation: renal 24 HR Interval Summary Constitutional: other (neck pain better) Exam/Review of Systems Vital Signs Vitals Vital Signs Date Time Temp Pulse Resp B/P Pulse Ox O2 Delivery O2 Flow Rate FiO2 07/25/16 12:27 65 07/25/16 11:50 98.0 18 119/85 98 07/25/16 04:15 Room Air Intake and Output 07/24/16 07/24/16 07/25/16 15:00 23:00 07:00 Intake Total 1050 ml Balance 1050 ml Exam Respiratory: clear to auscultation Cardiovascular: regular rate and rhythm Gastrointestinal: soft Musculoskeletal: nl extremities to inspection Extremities: normal pulses Results Result Diagram: 07/25/16 0611 07/25/16 0611 Results 24 hrs Laboratory Tests Test 07/25/16 06:11 Anion Gap 26 H Basophils # 0.0 Basophils % 0.9 Blood Urea Nitrogen 73 H Calcium Level 7.2 L Carbon Dioxide Level 17 L Chloride Level 101 Creatinine 10.22 H Eosinophils # 0.1 Eosinophils % 2.4 Glucose Level 80 Hematocrit 39.6 L Hemoglobin 11.9 L Lymphocytes # 1.3 Lymphocytes % 28.5 Mean Corpuscular Hemoglobin 24.8 L Mean Corpuscular Hemoglobin Concent 30.1 L Mean Corpuscular Volume 82.7 Mean Platelet Volume 9.7 Monocytes # 0.5 Monocytes % 10.7 Neutrophils # 2.7 Neutrophils % 57.1 Nucleated Red Blood Cells # 0.0 Nucleated Red Blood Cells % 0.0 Platelet Count 334 Potassium Level 5.2 H Red Blood Count 4.79 Red Cell Distribution Width 18.1 H Sodium Level 139 White Blood Count 4.7 L Medications Medications Current Medications Acetaminophen/ Hydrocodone Bitart 1 tab 1 tab Q6H PRN PO PAIN Last administered on 07/24/16 09:02; Admin Dose 1 TAB; Start 07/23/16 at 03:00 Cefepime HCl (Maxipime 1gm/50 ml (Pmx)) 50 ml @ 100 mls/hr Q24H IVPB Last administered on 07/24/16 19:47; Admin Dose 100 MLS/HR; Start 07/23/16 at 20:00 Acetaminophen (Tylenol Tab) 650 mg Q6H PRN PO PAIN AND OR ELEVATED TEMP; Start 07/23/16 at 04:00 Apixaban (Eliquis) 2.5 mg BID PO Last administered on 07/25/16 08:36; Admin Dose 2.5 MG; Start 07/24/16 at 09:00 Calcitriol (Rocaltrol) 0.5 mcg DAILY PO Last administered on 07/25/16 08:36; Admin Dose 0.5 MCG; Start 07/24/16 at 09:00 Cholecalciferol (Vitamin D) 2,000 unit DAILY PO Last administered on 07/25/16 08:36; Admin Dose 2,000 UNIT; Start 07/24/16 at 09:00 Folic Acid (Folic Acid) 1 mg DAILY PO Last administered on 07/25/16 08:36; Admin Dose 1 MG; Start 07/24/16 at 09:00 Multivit/Ca Carb/ B Cmplx/FA/Prenat (Madison-Raul) 1 tab DAILY PO Last administered on 07/25/16 08:36; Admin Dose 1 TAB; Start 07/24/16 at 09:00 Zolpidem Tartrate (Ambien) 5 mg QHS PRN PO INSOMNIA Last administered on 22:59; Admin Dose 5 MG; Start 07/23/16 at 22:00 Hydromorphone HCl (Dilaudid) 1 mg Q4H PRN IV PAIN Last administered on 12:27; Admin Dose 1 MG; Start 07/24/16 at 11:00 Pantoprazole (Protonix Tab) 40 mg DAILY@06 PO Last administered on 07/25/16 05 :23; Admin Dose 40 MG; Start 07/24/16 at 19:00 PHAN FITZGERALD MD Jul 25, 2016 13:52
--- NOTE | 2016-07-25 13:59 | CONS ---
Date/Time of Note Date/Time of Note DATE: 07/25/16 TIME: 13:57 Assessment/Plan Assessment/Plan Chief Complaint/Hosp Course A/P PREVIOU NOTE IS A MISTAKE DX ESRD PKD CELLULITES CH PAIN PLAN HD PAIN MEDS CHANGE CATH Problems: Consultation Date/Type/Reason Admit Date/Time Jul 22, 2016 at 20:55 Type of Consultation: renal 24 HR Interval Summary Constitutional: other (neck pain+) Exam/Review of Systems Vital Signs Vitals Vital Signs Date Time Temp Pulse Resp B/P Pulse Ox O2 Delivery O2 Flow Rate FiO2 07/25/16 12:27 65 07/25/16 11:50 98.0 18 119/85 98 07/25/16 04:15 Room Air Intake and Output 07/24/16 07/24/16 07/25/16 15:00 23:00 07:00 Intake Total 1050 ml Balance 1050 ml Exam Neck: supple Respiratory: clear to auscultation Cardiovascular: regular rate and rhythm Gastrointestinal: soft Musculoskeletal: nl extremities to inspection Results Result Diagram: 07/25/16 0611 07/25/16 0611 Results 24 hrs Laboratory Tests Test 07/25/16 06:11 Anion Gap 26 H Basophils # 0.0 Basophils % 0.9 Blood Urea Nitrogen 73 H Calcium Level 7.2 L Carbon Dioxide Level 17 L Chloride Level 101 Creatinine 10.22 H Eosinophils # 0.1 Eosinophils % 2.4 Glucose Level 80 Hematocrit 39.6 L Hemoglobin 11.9 L Lymphocytes # 1.3 Lymphocytes % 28.5 Mean Corpuscular Hemoglobin 24.8 L Mean Corpuscular Hemoglobin Concent 30.1 L Mean Corpuscular Volume 82.7 Mean Platelet Volume 9.7 Monocytes # 0.5 Monocytes % 10.7 Neutrophils # 2.7 Neutrophils % 57.1 Nucleated Red Blood Cells # 0.0 Nucleated Red Blood Cells % 0.0 Platelet Count 334 Potassium Level 5.2 H Red Blood Count 4.79 Red Cell Distribution Width 18.1 H Sodium Level 139 White Blood Count 4.7 L Medications Medications Current Medications Acetaminophen/ Hydrocodone Bitart 1 tab 1 tab Q6H PRN PO PAIN Last administered on 07/24/16t 09:02; Admin Dose 1 TAB; Start 07/23/16 at 03:00 Cefepime HCl (Maxipime 1gm/50 ml (Pmx)) 50 ml @ 100 mls/hr Q24H IVPB Last administered on 07/24/16 19:47; Admin Dose 100 MLS/HR; Start 07/23/16 at 20:00 Acetaminophen (Tylenol Tab) 650 mg Q6H PRN PO PAIN AND OR ELEVATED TEMP; Start 07/23/16 at 04:00 Apixaban (Eliquis) 2.5 mg BID PO Last administered on 07/25/16 08:36; Admin Dose 2.5 MG; Start 07/24/16 at 09:00 Calcitriol (Rocaltrol) 0.5 mcg DAILY PO Last administered on 07/25/16 08:36; Admin Dose 0.5 MCG; Start 07/24/16 at 09:00 Cholecalciferol (Vitamin D) 2,000 unit DAILY PO Last administered on 07/25/16 08:36; Admin Dose 2,000 UNIT; Start 07/24/16 at 09:00 Folic Acid (Folic Acid) 1 mg DAILY PO Last administered on 07/25/16 08:36; Admin Dose 1 MG; Start 07/24/16 at 09:00 Multivit/Ca Carb/ B Cmplx/FA/Prenat (Madison-Raul) 1 tab DAILY PO Last administered on 07/25/16 08:36; Admin Dose 1 TAB; Start 07/24/16 at 09:00 Zolpidem Tartrate (Ambien) 5 mg QHS PRN PO INSOMNIA Last administered on 22:59; Admin Dose 5 MG; Start 07/23/16 at 22:00 Hydromorphone HCl (Dilaudid) 1 mg Q4H PRN IV PAIN Last administered on 12:27; Admin Dose 1 MG; Start 07/24/16 at 11:00 Pantoprazole (Protonix Tab) 40 mg DAILY@06 PO Last administered on 07/25/16 05 :23; Admin Dose 40 MG; Start 07/24/16 at 19:00 Sodium Polystyrene Sulfonate (Kayexalate) 30 gm ONCE ONCE PO ; Start 07/25/16 at 14:00; Stop 07/25/16 at 14:01 PHAN FITZGERALD MD Jul 25, 2016 13:58
[2016-07-25] MEDS: NA POLYST SULFON 15 GM/60 ML BTL PO ONE ×2 (16:46→16:51)
[2016-07-25] MEDS: CEFEPIME 1GM/50 ML (PMX) 50 ML IVPB SCH (20:33)
[2016-07-25] MEDS: ZOLPIDEM 5 MG TAB PO PRN (22:41)
[2016-07-26] VITALS (25 sets, daily range): BP systolic 65–138; BP diastolic 38–90; PULSE 60–90; RESP 14–26
[2016-07-26] MEDS: HYDROmorphONE 1 MG/ML SYG IV PRN ×5 (00:28→18:10)
[2016-07-26] MEDS: PANTOPRAZOLE (EC) 40 MG TAB PO SCH (04:30)
[2016-07-26 06:52] LABS: ADD SCAN DIFF NO
[2016-07-26 07:06] LABS: BASOPHIL # 0.1 10^3/ul (0.0-0.1); BASOPHILS % 0.9 % (0.0-2.0); EOSINOPHILS # 0.1 10^3/ul (0.0-0.5); EOSINOPHILS % 2.6 % (0.0-7.0); HEMATOCRIT 39.9 % (42.0-52.0); HEMOGLOBIN 11.9 g/dl (14.0-18.0); LYMPHOCYTES # 1.4 10^3/ul (0.8-2.9); LYMPHOCYTES % 24.9 % (15.0-51.0); MEAN CORPUSCULAR HEMOGLOBIN 24.7 pg (29.0-33.0); MEAN CORPUSCULAR HGB CONC 29.8 g/dl (32.0-37.0); MEAN PLATELET VOLUME 9.1 fl (7.4-10.4); MONOCYTE # 0.5 10^3/ul (0.3-0.9); NEUTROPHIL # 3.4 10^3/ul (1.6-7.5); NEUTROPHILS % 62.2 % (39.0-77.0); PLATELET COUNT 324 10^3/UL (140-415); RED BLOOD COUNT 4.81 10^6/ul (4.70-6.10); RED CELL DISTRIBUTION WIDTH 17.8 % (11.5-14.5); WHITE BLOOD COUNT 5.4 10^3/ul (4.8-10.8)
[2016-07-26 07:14] LABS: POTASSIUM 4.6 mmol/L (3.5-5.1)
[2016-07-26 07:17] LABS: CREATININE 11.39 mg/dl (0.61-1.24)
[2016-07-26 07:18] LABS: CALCIUM 7.3 mg/dl (8.4-10.2); MAGNESIUM 2.4 mg/dl (1.7-2.5)
[2016-07-26] MEDS: APIXABAN 5 MG TABLET PO SCH (08:39)
[2016-07-26] MEDS: CALCIUM CARBONATE 500 MG CHEW TAB PO SCH ×3 (08:39→17:22)
[2016-07-26] MEDS: CALCITRIOL 0.25 MCG CAP PO SCH (08:40)
[2016-07-26] MEDS: FOLIC ACID 1 MG TAB PO SCH (08:40)
[2016-07-26] MEDS: MULTIVIT/CA CARB/B CMPLX/FA TAB PO SCH (08:40)
[2016-07-26] MEDS: CHOLECALCIFEROL 2,000 UNIT CAP PO SCH (08:40)
--- NOTE | 2016-07-26 10:11 | PDOCDIS ---
Discharge Instructions CONDITION Patient Condition: Good HOME CARE INSTRUCTIONS: Special Diet: fannie, carb controlled ACTIVITY: Activity Restrictions: No Restrictions FOLLOW UP/APPOINTMENTS Appointments Follow up with Nephrology as out-pt Follow up with PCP as out-pt DEV WEEMS MD Jul 26, 2016 10:11
[2016-07-26] MEDS ORDERED: LIDOCAINE 1% (MDV) 20 ML INJ ONE (12:06)
[2016-07-26] MEDS ORDERED: HEPARIN 1000 UNITS/NS (A-LINE) 1,000 ML ONE (12:06)
[2016-07-26] MEDS ORDERED: MIDAZOLAM 1 MG/ML 2 ML INJ ONE (12:25)
[2016-07-26] MEDS ORDERED: FENTAnyl 50 MCG/ML VIAL ONE ×2 (12:25→13:18)
[2016-07-26] MEDS ORDERED: PROPOFOL 20 ML ONE (12:25)
[2016-07-26] MEDS ORDERED: CEFAZOLIN 1 GM/50 ML (PMX) 50 ML IVPB ONE (12:40)
[2016-07-26] MEDS ORDERED: HEPARIN 1000 UNITS/ML 10 ML INJ ONE (12:44)
[2016-07-26] MEDS ORDERED: ONDANSETRON 4 MG INJ ONE (13:18)
[2016-07-26] MEDS ORDERED: HYDROmorphONE (0.2 MG/ML) 10ML SYG IV ONE (13:24)
[2016-07-26] MEDS ORDERED: FENTAnyl 50 MCG/ML VIAL IV PRN (13:30)
[2016-07-26] MEDS ORDERED: ONDANSETRON 4 MG INJ IV PRN (13:30)
[2016-07-26] MEDS ORDERED: HYDROmorphONE (0.2 MG/ML) 10ML SYG IV PRN ×2 (13:30)
[2016-07-26] MEDS ORDERED: LABETALOL HCL 20MG INJ IV PRN (13:30)
--- NOTE | 2016-07-26 16:41 | CONS ---
Date/Time of Note Date/Time of Note DATE: 07/26/16 TIME: 16:41 Assessment/Plan Assessment/Plan Chief Complaint/Hosp Course A/P DX ESRD PKD CELLULITES CH PAIN PLAN HD PAIN MEDS cath care Problems: Consultation Date/Type/Reason Admit Date/Time Jul 22, 2016 at 20:55 Type of Consultation: renal 24 HR Interval Summary Constitutional: no complaints Exam/Review of Systems Vital Signs Vitals Vital Signs Date Time Temp Pulse Resp B/P Pulse Ox O2 Delivery O2 Flow Rate FiO2 07/26/16 16:20 64 07/26/16 14:40 97.8 18 128/78 97 Room Air Intake and Output 07/25/16 07/25/16 07/26/16 15:00 23:00 07:00 Intake Total 800 ml Balance 800 ml Exam Respiratory: clear to auscultation Cardiovascular: regular rate and rhythm Gastrointestinal: soft Results Result Diagram: 07/26/16 0548 07/26/16 0548 Results 24 hrs Laboratory Tests Test 07/26/16 05:48 Anion Gap 27 H Basophils # 0.1 Basophils % 0.9 Blood Urea Nitrogen 89 H Calcium Level 7.3 L Carbon Dioxide Level 17 L Chloride Level 102 Creatinine 11.39 H Eosinophils # 0.1 Eosinophils % 2.6 Glucose Level 85 Hematocrit 39.9 L Hemoglobin 11.9 L Lymphocytes # 1.4 Lymphocytes % 24.9 Magnesium Level 2.4 Mean Corpuscular Hemoglobin 24.7 L Mean Corpuscular Hemoglobin Concent 29.8 L Mean Corpuscular Volume 83.0 Mean Platelet Volume 9.1 Monocytes # 0.5 Monocytes % 9.0 Neutrophils # 3.4 Neutrophils % 62.2 Nucleated Red Blood Cells # 0.0 Nucleated Red Blood Cells % 0.0 Platelet Count 324 Potassium Level 4.6 Red Blood Count 4.81 Red Cell Distribution Width 17.8 H Sodium Level 141 White Blood Count 5.4 Medications Medications Current Medications Acetaminophen/ Hydrocodone Bitart 1 tab 1 tab Q6H PRN PO PAIN Last administered on 07/24/16 09:02; Admin Dose 1 TAB; Start 07/23/16 at 03:00 Cefepime HCl (Maxipime 1gm/50 ml (Pmx)) 50 ml @ 100 mls/hr Q24H IVPB Last administered on 07/25/16 20:33; Admin Dose 100 MLS/HR; Start 07/23/16 at 20:00 Acetaminophen (Tylenol Tab) 650 mg Q6H PRN PO PAIN AND OR ELEVATED TEMP; Start 07/23/16 at 04:00 Apixaban (Eliquis) 2.5 mg BID PO Last administered on 07/26/16 08:39; Admin Dose 2.5 MG; Start 07/24/16 at 09:00 Calcitriol (Rocaltrol) 0.5 mcg DAILY PO Last administered on 07/26/16 08:40; Admin Dose 0.5 MCG; Start 07/24/16 at 09:00 Cholecalciferol (Vitamin D) 2,000 unit DAILY PO Last administered on 07/26/16 08:40; Admin Dose 2,000 UNIT; Start 07/24/16 at 09:00 Folic Acid (Folic Acid) 1 mg DAILY PO Last administered on 07/26/16 08:40; Admin Dose 1 MG; Start 07/24/16 at 09:00 Multivit/Ca Carb/ B Cmplx/FA/Prenat (Madison-Raul) 1 tab DAILY PO Last administered on 07/26/16 08:40; Admin Dose 1 TAB; Start 07/24/16 at 09:00 Zolpidem Tartrate (Ambien) 5 mg QHS PRN PO INSOMNIA Last administered on 22:41; Admin Dose 5 MG; Start 07/23/16 at 22:00 Hydromorphone HCl (Dilaudid) 1 mg Q4H PRN IV PAIN Last administered on 14:39; Admin Dose 1 MG; Start 07/24/16 at 11:00 Pantoprazole (Protonix Tab) 40 mg DAILY@06 PO Last administered on 07/25/16 05 :23; Admin Dose 40 MG; Start 07/24/16 at 19:00 PHAN FITZGERALD MD Jul 26, 2016 16:41
--- NOTE | 2016-07-26 20:53 | OPR ---
DATE OF OPERATION: PREOPERATIVE DIAGNOSIS: Renal failure. POSTOPERATIVE DIAGNOSIS: Renal failure. OPERATION PERFORMED: Left internal jugular vein tunneled hemodialysis catheter placement. SURGEON: Marco A Talamantes MD ANESTHESIA: Local. CONSENT: Risks, benefits, complications, alternative therapies explained to the patient and the [facility], consent obtained. OPERATIVE TECHNIQUE: The patient was placed in supine position, prepped and draped in usual sterile fashion. Guidewire was advanced through without any difficulty. Subcutaneous tissues were dilated . A 19 cm tunneled hemodialysis catheter was brought into subcutaneous tunnel, advanced into right internal jugular vein, superior vena cava, all under fluoroscopic guidance. The tip was placed at t he junction of the superior vena cava and right atrium. Both ports of the catheter were aspirated a nd injected using heparinized saline solution. Catheter was secured to skin using 2-0 nylon sutures . The neck site and exit site were closed using a single 3-0 Vicryl suture in interrupted fashion. The patient tolerated procedure well. Dictated By: MARCO A HOLLIS/KAMALA Conf#: [id number] DID#: [id number]
--- NOTE | 2016-07-26 23:15 | DS ---
DATE OF ADMISSION: 07/22/2016 DATE OF DISCHARGE: 07/26/2016 CONSULTANTS: 1. Dr. Los Parks 2. Dr. Marco A Talamantes DISCHARGE DIAGNOSES: 1. Dysfunction of dialysis catheter with associated tenderness. WBC is within normal limits. Bloo d culture is negative. The patient is set up for replacement of the dialysis catheter today. 2. History of polycystic kidney disease and end-stage renal disease on dialysis. 3. Essential hypertension, well controlled on medical management. 4. History of gastritis. Continue proton pump inhibitor. 5. Chronic pain syndrome. Continue pain medication. 6. History of neck and spinal abscess status post surgery. No evidence of infection on CT of the n [place]. 7. History of secondary hyperparathyroidism status post parathyroidectomy. MEDICATIONS: 1. Eliquis 5 mg half a tab p.o. b.i.d. 2. Calcitriol 0.5 mcg 1 tab p.o. daily. 3. Vitamin D 1000 units. 4. Nexium 40 mg. 5. Folic acid 1 mg. 6. Winslow 5/325. 7. Dilaudid 4 mg. 8. Antacid. 9. Madison-Raul. 10. Zofran. 11. Ambien. ALLERGIES: MORPHINE. LABORATORY DATA: Today, WBC 5.4, hemoglobin 11.9, hematocrit 39.9, platelets 324. Sodium 141, pota ssium 4.6, chloride 102, bicarbonate 17, BUN 89, creatinine 11.39, glucose 85. Magnesium 2.4. Cerv ical spine CT showed status post corpectomy with metallic cage extending from C3-C4 with anterior me tallic plate and screws in place, mild scoliosis of the cervical spine, normal prevertebral space. HOSPITAL COURSE: This is a 51-year-old gentleman with past medical history of polycystic kidney dis ease, end-stage renal disease on hemodialysis, hypertension, gastritis, history of secondary hyperpa rathyroidism status post parathyroidectomy, history of neck and spine abscess status post surgery, c hronic pain syndrome who was sent from dialysis center on 07/22/2016 secondary to having tenderness and erythema at the hemodialysis site. Upon arrival to emergency room, the patient was found to be afebrile. WBC was within normal limits. Blood pressure was 137/86, heart rate 96, respiration 20. The patient had an episode of tachycardia with ventricular rate 136 in the course of emergency room . BUN 52, creatinine 8.29. Nephrology was consulted. The patient was started on broad-spectrum IV antibiotics. Blood culture growth showed no growth x2. The patient as stated was seen and evaluat ed by nephrology. Hemodialysis was initiated after 30 minutes hemodialysis, the patient was not abl e to tolerate dialysis secondary to the discomfort. Cardiothoracic surgeon was consulted for remova l of hemodialysis catheter and replacing it. The patient has been seen and evaluated by him and the plan is for hemodialysis catheter replacement today and patient will obtain his hemodialysis afterw yifan and will be discharged home in stable condition. The patient's vitals are stable today, tempera ture 97.3, pulse 72, respirations 16, blood pressure 136/90, oxygen 97% in room air. CONDITION AT TIME OF DISCHARGE: Stable. Dictated By: DEV WEEMS MD PN/NTS Conf#: [id number] DID#: [id number] CC: LACY ADAMES MD;*EndCC*
== END 2016-07-26 21:00 | disposition home or self-care (01) | DRG 314 ==
LOC: E/R 14:55 → TEL 20:55
PROVIDERS: ADMIT Internal Medicine; ATTEND Internal Medicine
PROC: 5A1D60Z (ICD-10-PCS; 2016-07-23)
PROC: B518YZA Fluoroscopy of Superior Vena Cava using Other Contrast, Guidance (ICD-10-PCS; 2016-07-26)
PROC: 02PYX3Z Removal of Infusion Device from Great Vessel, External Approach (ICD-10-PCS; principal; 2016-07-26 12:30)
PROC: 02HV33Z Insertion of Infusion Device into Superior Vena Cava, Percutaneous Approach (ICD-10-PCS; 2016-07-26 12:30)
DX: T82.41XA Breakdown (mechanical) of vascular dialysis catheter, initial encounter (principal); N18.6 End stage renal disease; Q61.3 Polycystic kidney, unspecified; I12.0 Hypertensive chronic kidney disease with stage 5 chronic kidney disease or end stage renal disease; F11.20 Opioid dependence, uncomplicated; L03.313 Cellulitis of chest wall; G89.4 Chronic pain syndrome; M25.512 Pain in left shoulder; M54.9 Dorsalgia, unspecified; Y84.1 Kidney dialysis as the cause of abnormal reaction of the patient, or of later complication, without mention of misadventure at the time of the procedure; Z99.2 Dependence on renal dialysis; Z98.1 Arthrodesis status; Z86.711 Personal history of pulmonary embolism; Z79.01 Long term (current) use of anticoagulants
CPT/HCPCS: 36415; 71010; 71250; 72125; 77001; 80048; 80053; 80202; 83605; 83735; 84484; 85025; 85610; 85730; 87040; 87081; 90935; 93005; 96365; 96366; 96367; 96375; 96376; C1750; C1769; J0690; J0692; J1170; J1200; J1644; J2250; J2405; J3010; J3370; J7030

== ENCOUNTER 2016-09-30 15:49 | Observation (INO) | payer OTHER ==
[~2016-09-30] VITALS: Ht 157.5 cm; Wt 47.0 kg
[~2016-09-30 15:49] MED LIST changes: -ASPI-664 PO; +CALC0.5C2 PO; +CHOL100062 PO; +FOLI-49 PO; +HYDR4TAB18 PO; +MAG355OR15 PO; +NEPH PO; +ONDA-43 PO; +ZOLP5TAB7 PO
[2016-09-30] MEDS ORDERED: SOD CHLORIDE 0.9% 500 ML IV STA (19:13)
[2016-09-30] MEDS ORDERED: ONDANSETRON 4 MG INJ IV STA (19:13)
[2016-09-30] MEDS ORDERED: HYDROmorphONE 1 MG/ML SYG IV STA (19:13)
[2016-09-30] MEDS ORDERED: DIPHTH/TET/ACEL PERTUSS (ADULT) 0.5 ML VIAL IM* ONE (19:30)
--- NOTE | 2016-09-30 19:55 | ERA ---
ER Documentation Chief Complaint Date/Time DATE: 09/30/16 TIME: 19:53 Chief Complaint SYNCOPIAL EPISODE YESTERDAY C/O WEAKNESS AND BODYACHE HPI 51-year-old male history of end-stage renal disease, on dialysis Tuesday who completed dialysis today also with a history of chronic pain who presents with head injury. The patient states that he had 2 episodes of syncope yesterday. He states that he was in the bathroom started to have lightheadedness, room spinning and collapse with loss of consciousness. Patient states this happened twice. No prodrome of chest pain or shortness of breath. He is now describing head pain and total body pain asking for Dilaudid. Patient has sustained a contusion to the right forehead with associated abrasion. His tetanus is up-to-date. He denies any neck pain. ROS All systems reviewed and are negative except as per history of present illness. Medications Home Meds Active Scripts Apixaban* (Eliquis*) 5 Mg Tablet, 2.5 MG PO BID for 90 Days, #180 TAB Prov:DAYDAY DODSON MD 05/03/16 Reported Medications Hydromorphone Hcl* (Dilaudid*) 4 Mg Tablet, 4 MG PO QID, TAB 07/23/16 Multivit/Ca Carb/B Cmplx/Fa* ([place]-Raul*) 1 Tab Tab, 1 TAB PO DAILY, TAB 07/22/16 Cholecalciferol* (Vitamin D3*) 1,000 Unit Tablet, 2000 UNIT PO DAILY, TAB 07/22/16 Folic Acid* (Folic Acid*) 1 Mg Tablet, 1 MG PO DAILY, TAB 07/22/16 Mag Hydrox/Al Hydrox/Simeth (Antacid Plus Anti-Gas Liquid) 355 Ml Oral.susp, 10 ML PO TID 07/22/16 Zolpidem Tartrate* (Zolpidem Tartrate*) 5 Mg Tablet, 5 MG PO QHS Y for INSOMNIA , #30 TAB 07/22/16 Ondansetron Hcl* (Zofran*) 4 Mg Tab, 4 MG PO BID, TAB 07/22/16 Calcitriol* (Rocaltrol*) 0.5 Mcg Capsule, 0.5 MCG PO DAILY, CAP 07/22/16 Esomeprazole Mag Trihydrate (Nexium) 40 Mg Capsule.dr, 40 MG PO DAILY, CAP 03/05/15 Discontinued Scripts Hydrocodone/Acetaminophen ([place] 5-325 Tablet) 1 Each Tablet, 1 TAB PO Q6H Y for PAIN, #15 TAB Prov:SYL DYKES 07/20/16 Allergies Allergies: Coded Allergies: morphine (Verified Allergy, Mild, 09/30/16) PMhx/Soc History of Surgery: Yes (neck surgery, multyiple of graft AV revision thrombectomies) Anesthesia Reaction: No Hx Neurological Disorder: No Hx Respiratory Disorders: No Hx Cardiac Disorders: Yes (hypotension) Hx Psychiatric Problems: No Hx Miscellaneous Medical Probl: Yes (neck abscess, chronic pain syndrome, secondary polycythemia,hypocalcemia) Hx Alcohol Use: No Hx Substance Use: No Hx Tobacco Use: No Smoking Status: Unknown if ever smoked FmHx Family History: No diabetes Physical Exam Vitals Vital Signs Date Time Temp Pulse Resp B/P Pulse Ox O2 Delivery O2 Flow Rate FiO2 09/30/16 15:51 98.1 97 20 184/65 97 Physical Exam General: Well developed, well nourished, no acute distress Head: Small hematoma to the forehead with associated abrasion on the right side Eyes: Pupils equally reactive, EOM intact ENT: Moist mucous membranes Neck: Supple, no lymphadenopathy, No midline tenderness, deformities, step-offs to the cervical spine, full active and passive range of motion without midline pain. Respiratory: Lungs clear bilaterally, no distress Cardiovascular: RRR, no murmurs, rubs, or gallops Abdominal: Soft, non-tender, non-distended, no peritoneal signs : Deferred MSK: No edema, no unilateral swelling, 5/5 strength Neurologic: Alert and oriented, moving all extremities, normal speech, no focal weakness, no cerebellar signs Skin: No rash Psych: Normal mood Result Diagram: 09/30/161919 Results 24 hrs Laboratory Tests Test 09/30/16 19:19 09/30/16 19:20 09/30/16 20:20 Bedside Glucose 126mg/dL White Blood Count 5.310^3/ul Red Blood Count 6.5510^6/ul Hemoglobin 16.1g/dl Hematocrit 53.3% Mean Corpuscular Volume 81.4fl Mean Corpuscular Hemoglobin 24.6pg Mean Corpuscular Hemoglobin Concent 30.2g/dl Red Cell Distribution Width 18.4% Platelet Count 46597^3/UL Mean Platelet Volume 9.7fl Neutrophils % 64.6% Lymphocytes % 23.6% Monocytes % 9.5% Eosinophils % 1.1% Basophils % 0.8% Nucleated Red Blood Cells % 0.0/100WBC Neutrophils # 3.410^3/ul Lymphocytes # 1.210^3/ul Monocytes # 0.510^3/ul Eosinophils # 0.110^3/ul Basophils # 0.010^3/ul Nucleated Red Blood Cells # 0.010^3/ul Prothrombin Time 13.8Sec Prothrombin Time Ratio 1.1 INR International Normalized Ratio 1.06 Activated Partial Thromboplast Time Pending Current Medications Medications (Trade) Dose Ordered Sig/Evelina Route PRN Reason Start Time Stop Time Status Last Admin Dose Admin Sodium Chloride (NS) 500 ml @ 500 mls/hr Q1H STAT IV 09/30/16 19:13 09/30/16 20:12 DC 09/30/16 19:24 Diphtheria/ Tetanus/Acell Pertussis (Adacel) 0.5 ml ONCE ONCE IM* 09/30/16 19:30 09/30/16 19:31 DC Hydromorphone HCl (Dilaudid) 1 mg ONCE STAT IV 09/30/16 19:13 09/30/16 19:16 DC 09/30/16 19:26 Ondansetron HCl (Zofran Inj) 4 mg ONCE STAT IV 09/30/16 19:13 09/30/16 19:16 DC 09/30/16 19:25 Procedures/MDM EKG, MONITORS, & DIAGNOSTIC IMAGING: EKG: I reviewed and interpreted a 12-lead EKG. Rhythm: Normal sinus rhythm Ectopy: None Intervals: No abnormalities ST segments: No elevations or depressions T waves: No contiguous inversions Chest x-ray: I reviewed and interpreted a 1 view of the chest Mediastinum: No enlargement Cardiac silhouette: No cardiomegaly Airspace: Clear lung lucio bilaterally without evidence of pneumothorax Bones: No evidence of fracture CT brain: No acute intracranial process LAB INTERPRETATION: Chemistry and troponin pending. MEDICAL DECISION MAKING: The patient presents with 2 [id number] episodes of syncope. This is possibly related to vasovagal syncope versus vertigo. However, the patient did not have a significant prodrome. Given his comorbidities and concern for more serious etiology such as cardiogenic etiology. For this reason I believe inpatient hospitalization would be most appropriate. He did not have a prodrome of headache therefore I do not believe this is consistent with subarachnoid hemorrhage. The patient did have head trauma would benefit from CT imaging of the brain. The patient does not meet high-risk criteria and based on NEXUS cervical spine criteria there is no indication for cervical spine imaging at this time. It should be noted that the patient does have a history of chronic pain and chronic drug-seeking behavior. He will be given a single dose of Dilaudid for his head injury. Repeat dosing would not be indicated at this time. ER COURSE: The patient continues to ask for Dilaudid. Repeat dosing has not been provided. The patient's chemistry is pending but inpatient hospitalization is likely appropriate given his multiple episodes of syncope. Patient endorsed to Dr. Villa to follow-up in chemistry and admit the patient. I kept the patient and/or family informed of laboratory and diagnostic imaging results throughout the emergency room course. DISPOSITION PLAN: Telemetry admission for syncope. CONSULTATION: Accepting care team and consultations: I discussed the current laboratory data, diagnostic imaging and emergency care provided. Admitting team: Dr. Patricio Admitting team indication: Insurance directed Departure Diagnosis: Primary Impression: Syncope Qualified Code: R55 - Syncope, unspecified syncope type Additional Impressions: Closed head injury Qualified Code: S09.90XA - Closed head injury, initial encounter End stage renal disease on dialysis Chronic pain syndrome Condition: Stable RO VINSON MD September 30, 2016 19:55
[2016-09-30 19:56] LABS: ADD SCAN DIFF NO
[2016-09-30 20:01] LABS: BASOPHILS % 0.8 % (0.0-2.0); EOSINOPHILS # 0.1 10^3/ul (0.0-0.5); EOSINOPHILS % 1.1 % (0.0-7.0); HEMATOCRIT 53.3 % (42.0-52.0); HEMOGLOBIN 16.1 g/dl (14.0-18.0); LYMPHOCYTES # 1.2 10^3/ul (0.8-2.9); LYMPHOCYTES % 23.6 % (15.0-51.0); MEAN CORPUSCULAR HEMOGLOBIN 24.6 pg (29.0-33.0); MEAN CORPUSCULAR HGB CONC 30.2 g/dl (32.0-37.0); MEAN CORPUSCULAR VOLUME 81.4 fl (82.0-101.0); MEAN PLATELET VOLUME 9.7 fl (7.4-10.4); MONOCYTE # 0.5 10^3/ul (0.3-0.9); MONOCYTES % 9.5 % (0.0-11.0); NEUTROPHIL # 3.4 10^3/ul (1.6-7.5); NEUTROPHILS % 64.6 % (39.0-77.0); PLATELET COUNT 285 10^3/UL (140-415); RED BLOOD COUNT 6.55 10^6/ul (4.70-6.10); RED CELL DISTRIBUTION WIDTH 18.4 % (11.5-14.5); WHITE BLOOD COUNT 5.3 10^3/ul (4.8-10.8)
--- NOTE | 2016-09-30 20:15 | RADRPT ---
PROCEDURE: XR Chest. CLINICAL INDICATION: Chest pain TECHNIQUE: AP view of the chest was obtained. COMPARISON: 07/22/2016 FINDINGS: Left jugular hemodialysis catheter remains in place. There are atherosclerotic calcifications of th e thoracic aorta. The cardiomediastinal silhouette is within normal limits. The lungs are clear. No pleural effusion or pneumothorax is seen. There are clips in the right neck. IMPRESSION: No evidence of active cardiopulmonary disease. RPTAT: HESO .Derek Sibley MD, MD Date Time Electronically viewed and signed by .Derek Sibley MD, MD on 09/30/2016 20:14 .O/
--- NOTE | 2016-09-30 20:29 | RADRPT ---
PROCEDURE: CT brain without contrast CLINICAL INDICATION: Syncope TECHNIQUE: CT of the brain without contrast performed on a multidetector CT scanner, with multiplan ar reformats. One or more of the following dose reduction techniques were used: Automated exposure control, adjustment in mA and / or kV according to patient size, use of iterative reconstructive erika hnique. CTDIvol = 45 mGy; DLP = 720 mGy-cm. COMPARISON: 07/20/2016 FINDINGS: No acute intracranial hemorrhage is identified. No extra-axial fluid collection is seen. There is no mass effect. No midline shift is identified. Ventricles and sulci are within normal limits for size and configuration. There is a chronic right thalamic lacunar infarct. Witt-white differentiation is preserved. Atherosclerotic calcifications of the proximal intracranial arteries are noted. There is mild right frontal scalp swelling. The osseous structures are unremarkable. Mastoid air c ells and imaged paranasal sinuses grossly clear. IMPRESSION: 1. No evidence of acute intracranial pathology. 2. Chronic right thalamic lacunar infarct. 3. Mild right frontal scalp swelling. RPTAT: HESO .Derek Sibley MD, MD Date Time Electronically viewed and signed by .Derek Sibley MD, MD on 09/30/2016 20:28 .O/
[2016-09-30 20:49] LABS: CHLORIDE 93 mmol/L (97-110); SODIUM 136 mmol/L (135-144)
[2016-09-30 20:50] LABS: POTASSIUM 4.2 mmol/L (3.5-5.1)
[2016-09-30 20:51] LABS: INR 1.06; PROTIME 13.8 Sec (12.2-14.2); PT RATIO 1.1
[2016-09-30 20:52] LABS: CREATININE 5.54 mg/dl (0.61-1.24); PARTIAL THROMBOPLASTIN TIME 49.3 Sec (25.0-35.0)
[2016-09-30 20:53] LABS: ANION GAP 20 (8-16); BLOOD UREA NITROGEN 26 mg/dl (7-20); CALCIUM 7.8 mg/dl (8.4-10.2); CARBON DIOXIDE 27 mmol/L (21-31); GLUCOSE 105 mg/dl (70-220)
[2016-09-30 21:10] LABS: TROPONIN-I < 0.012 ng/ml (0.00-0.12)
[2016-10-01] VITALS (14 sets, daily range): BP systolic 93–143; BP diastolic 53–95; PULSE 65–80; RESP 16–19; Ht 157.5 cm; Wt 47.0 kg
[2016-10-01] MEDS ORDERED: HYDROmorphONE 1 MG/ML SYG IV ONE (01:09)
--- NOTE | 2016-10-01 02:55 | HP ---
Date/Time of Note Date/Time of Note DATE: 10/01/16 TIME: 02:55 Assessment/Plan VTE Prophylaxis VTE Prophylaxis Intervention: other (On Eliquis) Lines/Catheters IV Catheter Type (from Nrs): [place] [employer] Central line still needed: No Urinary Cath still in place: No Assessment/Plan Chief Complaint/Hosp Course This is a 51-year-old male being admitted to telemetry floor for: #1 syncope: Vasovagal versus orthostatic versus cardiac versus medication, at the current time CT scan is within normal values. Will order Doppler ultrasound of the carotid arteries, and a 2D echo. Will also order orthostatics. Patient is on a regimen of Dilaudid for his chronic pain. And he does have a history of end-stage renal disease and I am not sure if whether this could be medication related issue. Though the patient states that he has been on the Dilaudid for his chronic pain for some time now and has not had any issues with a before. Will keep patient on telemetry monitoring. EKG was normal sinus rhythm. Trend troponins. Patient does not appear clinically dehydrated. #2 History of pulmonary embolism: Continue Eliquis #3 end-stage renal disease on dialysis: Patient has a Tuesday dialysis schedule. Will consult nephrology for dialysis if patient does stay until Tuesday. #4 chronic pain syndrome: Patient apparently has a long history of chronic pain he does not know the exact etiology of the pain. He has been be given Dilaudid by his primary care doctor for quite some time now. This time with the patient at risk for potentially withdrawing as he is taking opioids on a daily basis I will give him Dilaudid 0.5 mg IV every 8 hours. #5 gastritis: Stable we will give Protonix daily #6 hypertension, currently stable patient is not on any blood pressure medications. 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 The patient states that he had 2 episodes of syncope yesterday. He states that woke up from bed and felt little dizzy and then fell to the floor. His family then came and he was helped back in the bed. Than later he states that he was in the bathroom started to have lightheadedness as he was about to sit down to use the toilet, room spinning and collapse with loss of consciousness. No prodrome of chest pain or shortness of breath. He did hit his head on the floor and he sustained laceration to his forehead which she was able to stop from bleeding with a Band- Aid. Patient later that day went to dialysis. Allergies: Morphine Medications: See VAHID LUÍS Const: Pain throughout his body which is part of his chronic pain, mild headache Eyes : No pain discharge or redness or change in visual acuity ENT: No pain, sore throat, congestion, congestion, dysphagia or discharge Respiratory: No shortness of breath, cough, sputum, wheezing, or pleuritic pain Cardiovascular: No chest pain, palpitation, PND, or edema GI : no change in appetite, abdominal pain, nausea, vomiting, diarrhea, constipation, or change in the color his stool Genitourinary: No dysuria, hematuria, flank pain , discharge or CVA tenderness Musculoskeletal: No joint pain, back pain, neck pain, restricted range of motion in neck or joints Skin: No rash, bruising or hives Neuro: No dizziness, or lightheadedness or sensation of the room spinning at the present time Endocrine: No polyuria, polydipsia, temperature intolerance Psych: No hallucination, depression, anxiety or suicidal ideation PMH/Family/Social Past Medical History polycystic kidney disease, end-stage renal disease on dialysis, hypertension, gastritis, a history of secondary hyperparathyroidism status post parathyroidectomy, a 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, and chronic pain syndrome, and PE Past Surgical History Parathyroidectomy, neck surgery Past Surgical Hx: endoscopy Family History Significant Family History: other (Mom: Polycystic kidney disease, hepatitis) Social History Alcohol Use: none Smoking Status: Never smoker Exam/Review of Systems Vital Signs Vitals Vital Signs Date Time Temp Pulse Resp B/P Pulse Ox O2 Delivery O2 Flow Rate FiO2 /5/17 01:03 98.0 80 18 129/95 100 Room Air Exam Exam General: This is a well-developed male, pleasant, sleeping in bed comfortably initially on exam The patient is alert oriented -3 HEENT: Right forehead bruising/laceration with no active bleeding, the pupils are equal, round and reactive. Extraocular motor are intact Neck: Supple with full range of motion. No rigidity or meningismus Chest: Nontender, left sided permacath Lungs: Clear to auscultation bilaterally no crackles rales or wheezing Heart: Normal S1-S2, Regular rhythm and rate. No murmur, S3, or S4 Abdomen: Soft , nontender, nondistended , bowel sounds are present. No guarding no rebound tenderness , No masses or organomegaly. No costovertebral temporal angle mass Extremities: Left lower extremity mendosa bruise covered with gauze. No active bleeding. Neurologic: Normal mental status, speech normal, cranial nerves II through XII are intact, motor and sensory are intact, no focal weakness Additional Comments EKG: Rhythm: Normal sinus rhythm ST segments: No elevations or depressions T waves: No contiguous inversions Chest x-ray: No active disease CT brain: No acute intracranial process Labs Result Diagram: 09/30/16191909/30/162019 KIAN PARHAM October 01, 2016 02:55
[2016-10-01] MEDS ORDERED: DOCUSATE SODIUM 100 MG CAP PO PRN (03:00)
[2016-10-01] MEDS ORDERED: ONDANSETRON 4 MG INJ IV PRN (03:00)
[2016-10-01] MEDS ORDERED: BISACODYL (EC) 5 MG TAB PO PRN (03:00)
[2016-10-01] MEDS ORDERED: NACL 0.9% 3 ML SYG IV SCH (03:00)
[2016-10-01] MEDS ORDERED: ACETAMINOPHEN 325 MG TAB PO PRN (03:00)
[2016-10-01 04:28] LABS: CREATINE KINASE 29 IU/L (23-200)
[2016-10-01 04:48] LABS: TROPONIN-I < 0.012 ng/ml (0.00-0.12)
[2016-10-01] MEDS: PANTOPRAZOLE (EC) 40 MG TAB PO SCH (06:30)
[2016-10-01] MEDS: HYDROmorphONE 1 MG/ML SYG IV PRN ×2 (06:32→08:46)
[2016-10-01] MEDS: FOLIC ACID 1 MG TAB PO SCH (08:39)
[2016-10-01] MEDS: AL HYDROX/MG HYDROX/SIMETH 30 ML CUP PO SCH ×2 (08:39→13:32)
[2016-10-01] MEDS: CHOLECALCIFEROL 1,000 UNIT TAB PO SCH (08:39)
[2016-10-01] MEDS: CALCITRIOL 0.25 MCG CAP PO SCH (08:39)
[2016-10-01] MEDS: MULTIVIT/CA CARB/B CMPLX/FA TAB PO SCH (08:39)
[2016-10-01] MEDS: ONDANSETRON 4 MG TAB PO SCH ×2 (08:40→20:59)
[2016-10-01] MEDS: APIXABAN 5 MG TABLET PO SCH ×2 (08:40→20:59)
[2016-10-01] MEDS ORDERED: NON-FORMULARY/PATIENT OWN MED (Esomeprazole Mag Trihydrate (Nexium) 40 MG) PO SCH (09:00)
[2016-10-01 09:47] LABS: CREATINE KINASE 29 IU/L (23-200)
[2016-10-01 09:59] LABS: CK-MB 0.83 ng/ml (0.0-2.4); TROPONIN-I < 0.012 ng/ml (0.00-0.12)
--- NOTE | 2016-10-01 13:05 | RADRPT ---
Echocardiogram Report Patient Name: MOI MARQUEZ Gender: Male Date: 1965 Study Date: 01-Oct-2016 Supervisor Spinning: BERRY Location: [address] Ref. Physician: KIAN PARHAM Quality: Technically Difficult Study Procedures: Transthoracic echocardiogram with complete 2D, M-Mode, and doppler examination. Indications: Syncope. 2D/M Mode Doppler Measurement Value Normal Ranges Measurement Value Normal Ranges LVIDd 2D 3.7 3.5 - 5.6 cm AV Peak Vaibhav 1.1 m/sec LVIDs 2D 2.4 2.1 - 4.1 cm AV Peak PG 5.0 mmHg FS 2D 34.1 % LVOT Peak Vaibhav 1.0 m/sec LVPWd 2D 1.0 0.6 - 1.1 cm LVOT Peak PG 4.0 mmHg IVSd 2D 0.6 0.6 - 1.1 cm MV E Peak Vaibhav 0.4 m/sec IVS/LVPW 2D 0.6 MV A Peak Vaibhav 0.4 m/sec AoR Diam 2D 2.2 2.0 - 3.7 cm MV E/A 0.9 LA/Ao 2D 1 0 - 1 MV Decel Time 180 msec EDV 2D 50.7 cm3 MV E/A 0.9 ESV 2D 14.5 cm3 MR Peak PG 9.0 mmHg LA Dimen 2D 2.0 2.3 - 4.0 cm MR Peak Vaibhav 1.5 m/sec TR Peak Vaibhav 1.9 m/sec TR Peak PG 15.0 mmHg RVSP 18.0 mmHg Findings Left Ventricle: Overall, normal left ventricular systolic function. Not all segments visualized. Normal left ventricular wall thickness. Ejection fraction is visually estimated at 60 %. Tissue Doppler/Mitral Doppler indices are consistent with impaired relaxation (Stage I diastolic dysfunction). Right Ventricle: Normal right ventricular size. Normal right ventricular systolic function. Left Atrium: The left atrium is normal in size. Right Atrium: The right atrium is normal in size. Mitral Valve: Mitral valve is not well visualized. Mild mitral annular calcification. Trace mitral regurgitation. Aortic Valve: Normal appearance of the aortic valve. No significant aortic stenosis or insufficiency. Tricuspid Valve: Estimated peak PA systolic pressure 18 mmHg. There is trace tricuspid regurgitation. Pulmonic Valve: Normal pulmonic valve appearance. Pericardium: Trivial pericardial effusion. Pleural effusion seen. Aorta: Normal aortic root. IVC: The IVC is not well visualized. Conclusions 1.Overall, normal left ventricular systolic function. Not all segments visualized. Normal left ventricular wall thickness. Ejection fraction is visually estimated at 60 %. Tissue Doppler/Mitral Doppler indices are consistent with impaired relaxation (Stage I diastolic dysfunction). 2.Normal right ventricular size. Normal right ventricular systolic function. 3.The left atrium is normal in size. 4.The right atrium is normal in size. 5.No significant valvular stenosis or regurgitation seen. 6.Trivial pericardial effusion. Pleural effusion seen. Electronically Signed By: Devaughn Tran 01-Oct-2016 13:04:16 -0700 Patient Name: MOI MARQUEZ Study Date: 01-Oct-2016 [id number]
--- NOTE | 2016-10-01 14:19 | CONS ---
Date/Time of Note Date/Time of Note DATE: 10/01/16 TIME: 14:18 Assessment/Plan Assessment/Plan Chief Complaint/Hosp Course [id number] A/P SYNCOPE ESRD PKD PLAN HD AM Problems: Consultation Date/Type/Reason Admit Date/Time September 30, 2016 at 22:32 Initial Consult Date Type of Consultation: RENAL Exam/Review of Systems Vital Signs Vitals Vital Signs Date Time Temp Pulse Resp B/P Pulse Ox O2 Delivery O2 Flow Rate FiO2 10/01/16 12:34 69 10/01/16 11:07 98.0 18 96/54 95 10/01/16 05:00 Room Air Intake and Output 09/30/16 09/30/16 10/01/16 15:00 23:00 07:00 Intake Total 300 ml Balance 300 ml Exam Cardiovascular: regular rate and rhythm Gastrointestinal: soft Extremities: normal pulses Results Result Diagram: 09/30/16191909/30/162019 Results 24 hrs Laboratory Tests Test 09/30/16 19:19 09/30/16 19:20 09/30/16 20:20 10/01/16 03:39 Bedside Glucose 126 White Blood Count 5.3 Red Blood Count 6.55 #H Hemoglobin 16.1 # Hematocrit 53.3 #H Mean Corpuscular Volume 81.4 L Mean Corpuscular Hemoglobin 24.6 L Mean Corpuscular Hemoglobin Concent 30.2 L Red Cell Distribution Width 18.4 H Platelet Count 285 Mean Platelet Volume 9.7 Neutrophils % 64.6 Lymphocytes % 23.6 Monocytes % 9.5 Eosinophils % 1.1 Basophils % 0.8 Nucleated Red Blood Cells % 0.0 Neutrophils # 3.4 Lymphocytes # 1.2 Monocytes # 0.5 Eosinophils # 0.1 Basophils # 0.0 Nucleated Red Blood Cells # 0.0 Prothrombin Time 13.8 Prothrombin Time Ratio 1.1 INR International Normalized Ratio 1.06 Activated Partial Thromboplast Time 49.3 H Sodium Level 136 Potassium Level 4.2 Chloride Level 93 L Carbon Dioxide Level 27 Anion Gap 20 H Blood Urea Nitrogen 26 H Creatinine 5.54 H Glucose Level 105 Calcium Level 7.8 L Troponin I < 0.012 < 0.012 Creatine Kinase 29 Creatine Kinase Index 3.1 Creatinine Kinase MB (Mass) 0.90 Test 10/01/16 08:42 Creatine Kinase 29 Creatine Kinase Index 2.9 Creatinine Kinase MB (Mass) 0.83 Troponin I < 0.012 Medications Medications Current Medications Ondansetron HCl (Zofran Inj) 4 mg Q6H PRN IV NAUSEA AND/OR VOMITING; Start 10/01 at 03:00 Acetaminophen (Tylenol Tab) 650 mg Q6H PRN PO PAIN LEVEL 1-3 OR FEVER; Start at 03:00 Hydromorphone HCl (Dilaudid) 0.5 mg Q8H PRN IV PAIN LEVEL 7-10 Last administered on 10/01/16 08:46; Admin Dose 0.5 MG; Start 10/01/16 at 03:00 Docusate Sodium (Colace) 100 mg Q12H PRN PO CONSTIPATION; Start 10/01/16 at 03: 00 Bisacodyl (Dulcolax) 5 mg DAILY PRN PO CONSTIPATION; Start 10/01/16 at 03:00 Pantoprazole (Protonix Tab) 40 mg DAILY@06 PO Last administered on 10/01/16 06: 30; Admin Dose 40 MG; Start 10/01/16 at 06:00 Apixaban (Eliquis) 2.5 mg BID PO Last administered on 10/01/16 08:40; Admin Dose 2.5 MG; Start 10/01/16 at 09:00 Calcitriol (Rocaltrol) 0.5 mcg DAILY PO Last administered on 10/01/16 08:39; Admin Dose 0.5 MCG; Start 10/01/16 at 09:00 Cholecalciferol (Vitamin D) 2,000 unit DAILY PO Last administered on 10/01/16 08:39; Admin Dose 2,000 UNIT; Start 10/01/16 at 09:00 Folic Acid (Folic Acid) 1 mg DAILY PO Last administered on 10/01/16 08:39; Admin Dose 1 MG; Start 10/01/16 at 09:00 Multivit/Ca Carb/ B Cmplx/FA/Prenat ([place]-Raul) 1 tab DAILY PO Last administered on 10/01/16 08:39; Admin Dose 1 TAB; Start 10/01/16 at 09:00 Ondansetron HCl (Zofran Tab) 4 mg BID PO Last administered on 10/01/16 08:40; Admin Dose 4 MG; Start 5/5/17 at 09:00 Zolpidem Tartrate (Ambien) 5 mg QHS PRN PO INSOMNIA; Start 10/01/16 at 03:30 Al Hydrox/Mg Hydrox/Simethicone (Mag-Al Plus) 10 ml TID PO Last administered on 10/01/16t 13:32; Admin Dose 10 ML; Start 10/01/16 at 09:00 PHAN FITZGERALD MD October 01, 2016 14:19
--- NOTE | 2016-10-01 15:20 | CONS ---
DATE OF ADMISSION: 09/30/2016 DATE OF CONSULTATION: 10/01/2016 TYPE OF CONSULTATION: Nephrology consultation. 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 Jarrell in the past, history of hyperparathyroidism, history of parathyroidectomy, history of noncompliance wi th medication, history of insomnia and history of gait disorder. The patient presented to this hosp ital with complaints of fall and body ache. The patient is being admitted for further management. The patient now presents to this hospital complaining of syncope and passing out. PAST MEDICAL HISTORY: Briefly, this is positive for ESRD, hypertension and hypotension, polycystic kidney disease, chronic pain syndrome, neck abscess and status post spinal surgery, gastritis and hi story of PE. ALLERGY HISTORY: MORPHINE. SOCIAL HISTORY: Negative. FAMILY HISTORY: Positive for polycystic kidney disease, hypertension. MEDICATION HISTORY: 1. The patient is on Eliquis. 2. Rocaltrol. 3. Vitamin D. 4. Omeprazole. 5. Folic acid. 6. Hydromorphone. 7. Magnesium. 8. Multivitamins. 9. Zofran. 10. Ambien. REVIEW OF SYSTEMS: HEENT: Unremarkable. RESPIRATORY: Unremarkable. CARDIOVASCULAR: No chest pain right now. ABDOMEN: Dyspepsia. EXTREMITIES: On and off chronic pain. CENTRAL NERVOUS SYSTEM: History of chronic pain and also gait disorder. PHYSICAL EXAMINATION: GENERAL: The patient is short male, awake, alert, not in any acute respiratory distress. VITAL SIGNS: Pulse 61, blood pressure 96/54. HEAD: Atraumatic and normocephalic. Pupils equal, reactive to light. NECK: Supple. No JVD. LUNGS: Clear. CARDIOVASCULAR: S1, S2 is normal. Systolic murmur noted. ABDOMEN: Soft, nontender. Bowel sounds positive. No palpable mass. RENAL: Polycystic kidney disease. EXTREMITIES: No cyanosis, clubbing, or edema. CENTRAL NERVOUS SYSTEM: The patient is awake, alert, moving both upper and lower extremities. Sign s of osteoarthritis, DJD noted. LABORATORY DATA: Hematocrit 53.3, potassium 4.2, BUN 27, creatinine 5.54. IMPRESSION: 1. Patient had a syncopal episode. 2. History of fall. 3. Gait disorder. 4. History of spine surgery. 5. History of hyperparathyroidism, status post parathyroidectomy. 6. History of gastritis. 7. History of chronic pain syndrome. PLAN: To continue renal diet, hemodialysis will be ordered for tomorrow. Pain management per Dr. Gisela Grewal. Thank you, Dr. Hernandez and Dr. Sheng Grewal for kindly asking me to see this patient in consultation. Dictated By: PHAN FITZGERALD MD BS/NTS Conf#: [id number] DID#: [id number]
[2016-10-01] MEDS ORDERED: HYDROmorphONE 1 MG/ML SYG IV PRN (15:30)
--- NOTE | 2016-10-01 15:44 | PN ---
DATE: 10/01/2016 MEDICINE FOLLOWUP SUBJECTIVE: The patient remains stable following admission. No new events. Denies any shortness o f breath, no chest pain or palpitations. PHYSICAL EXAMINATION: VITAL SIGNS: Temperature 98, pulse is 70, blood pressure 95/50, O2 saturation 96% on room air. NECK: Supple. No JVD or lymphadenopathy. CARDIAC: S1, S2, no added sounds or murmurs. CHEST: Diminished air entry bilaterally. ABDOMEN: Soft, nontender. No guarding or rebound. EXTREMITIES: No cyanosis, clubbing, or edema. NEUROLOGIC: Grossly intact. No focal deficits. LABORATORY DATA: White count 5.3, hemoglobin 16, platelets within normal limits. BUN 26, creatinin e 5.54. IMPRESSION: 1. Syncopal episode, possibly vasovagal versus orthostatic. 2. History of end-stage renal failure. 3. History of pulmonary embolism, on Eliquis. PLAN: 1. Continue hemodialysis. 2. Encourage out of bed. 3. Monitor blood pressure. 4. DVT and GI prophylaxis. Hopefully, patient should be stable for discharge tomorrow. Dictated By: RADAMES BROWN/KAMALA Conf#: [id number] DID#: [id number]
--- NOTE | 2016-10-01 17:00 | RADRPT ---
PROCEDURE: US carotid arteries. CLINICAL INDICATION: Dizziness. TECHNIQUE: Multiple sonographic images of the carotid arteries and vertebral arteries were obtaine d utilizing machado scale, duplex, and color-flow imaging. The images were reviewed on a PACS workstati on. COMPARISON: No prior studies are available for comparison. FINDINGS: Evaluation of the right carotid bifurcation region reveals mild atherosclerotic disease. Evaluation of the left carotid bifurcation region reveals mild atherosclerotic disease. There is antegrade flow within the vertebral arteries bilaterally. RIGHT CAROTID MEASUREMENTS: Common Carotid Cmporu79 (cm/sec) Internal Carotid Artery 72 (cm/sec) External Carotid Artery 86 (cm/sec) Vertebral Artery 40 (cm/sec) Internal Carotid/Common Carotid0.9 LEFT CAROTID MEASUREMENTS: Common Carotid Reafrh12 (cm/sec) Internal Carotid Artery 77 (cm/sec) External Carotid Artery 84 (cm/sec) Vertebral Artery 52 (cm/sec) Internal Carotid/Common Carotid1.0 Validated velocity measurements with angiographic measurements. Velocity criteria are extrapolated f rom diameter data as defined by the Society of Radiologists in Ultrasound Consensus Conference. Radi ology 2003; 229;340-346. This study does indirectly reference the measurement of the distal ICA judy meter as the denominator for stenosis measurement. IMPRESSION: 1. Less than 50% stenosis bilaterally in the internal carotid arteries. 2. Normal antegrade flow in the vertebral arteries bilaterally. RPTAT: QQ SRU Consensus Conference Criteria for the Diagnosis of Carotid Artery Stenosis* Degree of Stenosis, % ICA PSV, cm/sec Plaque Estimate, % ICA/CCA PSV Ratio Normal <125 None <2.0 <50 <125 <50 <2.0 50 69 125-230 >50 2.0-4.0 >70 but less than near occlusion >230 >50 <4.0 Near occlusion High, low, or undetectable Visible Variable Total occlusion Undetectable Visible, no detectable lumen Not applicable *Cartoid artery stenosis: machado-scale and Doppler US diagnosis. Society of Radiologists in Ultrasound Consensus Conference. Radiology 2003; 229: 340-346 .Luís Morales MD, Date Time Electronically viewed and signed by .Luís Morales MD, on 10/01/2016 17:00 .R/
--- NOTE | 2016-10-01 17:04 | CONS ---
Date/Time of Note Date/Time of Note DATE: 10/01/16 TIME: 16:55 Assessment/Plan Assessment/Plan Additional Assessment/Plan Possible syncope Preserved ejection fraction Chronic pain on narcotics Pulmonary emboli on anticoagulation End-stage renal disease on hemodialysis Borderline low blood pressure -Telemetry reviewed with no significant arrhythmias seen. Echocardiogram with preserved ejection fraction. Patient does takes narcotics at home including Dilaudid. It is unclear if patient had a syncopal episode or possible orthostatics verses secondary to lower extremity weakness. He did have hemodialysis yesterday and there could be an element of hypovolemia as well as narcotic use. Blood pressure remains on the lower end today. No antihypertensives at the current time. Continue telemetry monitoring. Carotid ultrasound pending. Consultation Date/Type/Reason Admit Date/Time September 30, 2016 at 22:32 Type of Consultation: cv Reason for Consultation Syncope Hx of Present Illness This is a 51-year-old male with past medical history of end-stage renal disease on hemodialysis, pulmonary emboli on anticoagulation and chronic pain syndrome on narcotics who presents with syncope. Patient has chronic pain in his legs and has been feeling progressively weaker in his legs with more pain. On the night prior to admission, patient states he got up in the middle of the night and fell out of bed and thinks he passed out. He is not sure if he lost consciousness. Later in the night, he got up to walk to the bathroom but his legs felt weak and he "passed out again". He thinks he lost consciousness. He denies any chest pain, shortness of breath, palpitations, diaphoresis. He does take narcotics on a regular basis because of lower extremity pain. He denies exertional chest pain or shortness of breath but his activity is very limited secondary to his chronic pain. 12 point review of systems was performed with all pertinent positives and negatives mentioned above and all else is negative Past Medical History End-stage renal disease on hemodialysis Pulmonary emboli on anticoagulation Chronic pain Past Surgical History Back surgery Dialysis catheter placement Past Surgical Hx: endoscopy Social History Alcohol Use: none Smoking Status: Never smoker Drug Use: none Exam/Review of Systems Vital Signs Vitals Vital Signs Date Time Temp Pulse Resp B/P Pulse Ox O2 Delivery O2 Flow Rate FiO2 10/01/16 16:20 98.2 60 18 93/53 96 10/01/16 05:00 Room Air Intake and Output 09/30/16 09/30/16 10/01/16 15:00 23:00 07:00 Intake Total 300 ml Balance 300 ml Exam Constitutional: alert, oriented Head: lacerations (Right upper forehead), normocephalic Respiratory: other (Coarse breath sounds bilaterally, no wheezing) Cardiovascular: other (S1-S2 heard), regular rate and rhythm Gastrointestinal: bowel sounds, non-tender, other (No guarding), soft Extremities: edema (No edema) Results Result Diagram: 09/30/16191909/30/162019 Results 24 hrs Laboratory Tests Test 09/30/16 19:19 09/30/16 19:20 09/30/16 20:20 10/01/16 03:39 Bedside Glucose 126 White Blood Count 5.3 Red Blood Count 6.55 #H Hemoglobin 16.1 # Hematocrit 53.3 #H Mean Corpuscular Volume 81.4 L Mean Corpuscular Hemoglobin 24.6 L Mean Corpuscular Hemoglobin Concent 30.2 L Red Cell Distribution Width 18.4 H Platelet Count 285 Mean Platelet Volume 9.7 Neutrophils % 64.6 Lymphocytes % 23.6 Monocytes % 9.5 Eosinophils % 1.1 Basophils % 0.8 Nucleated Red Blood Cells % 0.0 Neutrophils # 3.4 Lymphocytes # 1.2 Monocytes # 0.5 Eosinophils # 0.1 Basophils # 0.0 Nucleated Red Blood Cells # 0.0 Prothrombin Time 13.8 Prothrombin Time Ratio 1.1 INR International Normalized Ratio 1.06 Activated Partial Thromboplast Time 49.3 H Sodium Level 136 Potassium Level 4.2 Chloride Level 93 L Carbon Dioxide Level 27 Anion Gap 20 H Blood Urea Nitrogen 26 H Creatinine 5.54 H Glucose Level 105 Calcium Level 7.8 L Troponin I < 0.012 < 0.012 Creatine Kinase 29 Creatine Kinase Index 3.1 Creatinine Kinase MB (Mass) 0.90 Test 10/01/16 08:42 Creatine Kinase 29 Creatine Kinase Index 2.9 Creatinine Kinase MB (Mass) 0.83 Troponin I < 0.012 Medications Medications Current Medications Ondansetron HCl (Zofran Inj) 4 mg Q6H PRN IV NAUSEA AND/OR VOMITING; Start 10/01 at 03:00 Acetaminophen (Tylenol Tab) 650 mg Q6H PRN PO PAIN LEVEL 1-3 OR FEVER; Start at 03:00 Docusate Sodium (Colace) 100 mg Q12H PRN PO CONSTIPATION; Start 10/01/16 at 03: 00 Bisacodyl (Dulcolax) 5 mg DAILY PRN PO CONSTIPATION; Start 10/01/16 at 03:00 Pantoprazole (Protonix Tab) 40 mg DAILY@06 PO Last administered on 10/01/16 06: 30; Admin Dose 40 MG; Start 10/01/16 at 06:00 Apixaban (Eliquis) 2.5 mg BID PO Last administered on 10/01/16 08:40; Admin Dose 2.5 MG; Start 10/01/16 at 09:00 Calcitriol (Rocaltrol) 0.5 mcg DAILY PO Last administered on 10/01/16 08:39; Admin Dose 0.5 MCG; Start 10/01/16 at 09:00 Cholecalciferol (Vitamin D) 2,000 unit DAILY PO Last administered on 10/01/16 08:39; Admin Dose 2,000 UNIT; Start 10/01/16 at 09:00 Folic Acid (Folic Acid) 1 mg DAILY PO Last administered on 10/01/16 08:39; Admin Dose 1 MG; Start 10/01/16 at 09:00 Multivit/Ca Carb/ B Cmplx/FA/Prenat (Madison-Raul) 1 tab DAILY PO Last administered on 10/01/16 08:39; Admin Dose 1 TAB; Start 10/01/16 at 09:00 Ondansetron HCl (Zofran Tab) 4 mg BID PO Last administered on 10/01/16 08:40; Admin Dose 4 MG; Start 10/01/16 at 09:00 Zolpidem Tartrate (Ambien) 5 mg QHS PRN PO INSOMNIA; Start 10/01/16 at 03:30 Hydromorphone HCl (Dilaudid) 1 mg Q4H PRN IV PAIN LEVEL 7-10 Last administered on 10/01/16 15:26; Admin Dose 1 MG; Start 10/01/16 at 15:30 Procedures Procedures ECG done today at 1647 demonstrates sinus rhythm at 73 bpm, normal QRS duration , nonspecific STT wave abnormalities Devaughn Tran DO October 01, 2016 17:04
[2016-10-01] MEDS: CALCIUM CARBONATE 500 MG CHEW TAB PO SCH (18:25)
[2016-10-01] MEDS: HYDROmorphONE 2 MG TAB PO PRN (19:45)
[2016-10-01] MEDS: ZOLPIDEM 5 MG TAB PO PRN (20:59)
[2016-10-02] VITALS (20 sets, daily range): BP systolic 90–124; BP diastolic 52–78; PULSE 60–101; RESP 16–20
--- NOTE | 2016-10-02 00:20 | CONS ---
DATE OF ADMISSION: 09/30/2016 DATE OF CONSULTATION: 10/01/2016 HISTORY OF PRESENT ILLNESS: This is a 51-year-old gentleman, who presented to [facility] with orthotic syncopal episode, possibly vasovagal according to medical records. This gentl eman is somewhat of a poor historian. He denies nausea, vomiting, true vertigo, dizziness, diplopia , disorientation. Unclear as to why he fell, and that is being worked up at this time for a cardiac versus neurological etiology. This gentleman describes his pain primarily in bilateral lower extre mities, which is a chronic discomfort that he has had for the last 4 years, presumably secondary to end-stage renal disease on hemodialysis. He is not a diabetic. He has not had any severe injuries to his lumbosacral spine to account for bilateral lower extremity pain. He describes the pain as a lancinating type of pain, below bilateral, in a stocking distribution bilaterally, and equal intensi ty on both sides of in his legs. He states that this pain is constant. He takes Dilaudid 4 mg oral ly 4 times a day. He states he has tried other pain medications, but they have not worked for him, and he has chosen to take this. It is unclear whether or not he is taking any other non-opioids for neuropathic pain in the past. He is, once again, a poor historian. He rates his pain as severe bi lateral lower extremities. Pain scale is difficult for this gentleman and is unhelpful. He states his pain is relieved approximately 50% with his current pain control medications. He does not use a [place] other pain control medications. He is a nonsmoker, nondrinker. It does not interfere with his p hysical functioning, relationships at home, social relationships, his mood, sleeping pattern, so ove rall functions. It is, once again, a lancinating type of discomfort. Denies nausea, vomiting, cons tipation itchiness associated with the medication, mental cloudiness, sweating, fatigue, drowsiness. There is no history of abuse of opioids. There is no history of hospitalization to treatment prog phuc. There is no history of purposeful oversedation, negative mood changes. This gentleman does n ot appear to be oversedated at this time, and he does not appear to be unkempt or in poor physical c ondition. There is no history of contact with his street drugs also. Once again, patient is overall severity of pain he describes as moderate to severe. MEDICATIONS: Please refer to reconciliation sheets. ALLERGIES: MORPHINE. MAJOR MEDICAL PROBLEMS IN THE PAST: History of end-stage renal disease on hemodialysis, past medica l history of pulmonary embolus; currently on Eliquis, history of hypertension, recent history of syn copal episode, past medical history of spinal surgery; unclear in an incomplete database. According to medical records, he has a history of hyperparathyroidism and status post parathyroidectomy. SOCIAL HISTORY: Nonsmoker, nondrinker. FAMILY HISTORY: Noncontributory towards this hospitalization, though he does have a family history of polycystic kidney disease and hypertension, according to medical records, REVIEW OF SYSTEMS: A 12-point review of systems is essentially unremarkable except which is as per history of present illness, although once again, patient is a very poor historian. PHYSICAL EXAMINATION: VITAL SIGNS: Blood pressure 95/53, pulse of 60 and regular, respirations of 18, temperature 98.2 de grees, 96% saturation on room air. HEENT: Normocephalic and atraumatic. Anicteric, acyanotic. CHEST: Shows bilateral clear breath sounds throughout both lung lucio. COR: S1, S2, without S3, S4, murmur, gallop, or rub. Normal rate, normal rhythm. ABDOMEN: Grossly benign. NEUROLOGIC: He is oriented x3. Cranial nerves II-XII are grossly intact. He is somewhat histrioni c in trying to obtain a cogent past medical history. Otherwise, nonfocal neurological examination. LABORATORY TESTS: There are no new laboratory tests today. ASSESSMENT AND PLAN: This gentleman has chronic pain syndrome with bilateral lower-extremity neurop athic pain, the etiology most probably secondary to end-stage renal disease on hemodialysis. I had an extensive conversation with him. I did tell him I do not think there is indication to switch him to IV Dilaudid while he is here, since this is not an exacerbation of his pain presentation; that w e should just keep him on his present dosing. I would suggest alternative treatments as an outpatie nt including neuroleptics, although this gentleman currently runs low blood pressure, and that will need to be considered when trying other class of medications. In addition, he wants IV , and I do not believe there is an indication for that and I will stop it, and especially since he was admi tted for a syncopal episode, and his baseline blood pressure is low, and the chance that he will hav e another syncopal episode with IV opioids is high. Dictated By: BAIRON WAKEFIELD MD, LP/KAMALA Conf#: [id number] DID#: [id number]
[2016-10-02] MEDS: HYDROmorphONE 2 MG TAB PO PRN ×4 (00:53→19:16)
[2016-10-02] MEDS: PANTOPRAZOLE (EC) 40 MG TAB PO SCH (05:50)
[2016-10-02 06:42] LABS: ADD SCAN DIFF NO
[2016-10-02 06:45] LABS: BASOPHILS % 0.6 % (0.0-2.0); EOSINOPHILS # 0.1 10^3/ul (0.0-0.5); EOSINOPHILS % 1.9 % (0.0-7.0); HEMATOCRIT 49.5 % (42.0-52.0); HEMOGLOBIN 14.5 g/dl (14.0-18.0); LYMPHOCYTES # 1.3 10^3/ul (0.8-2.9); LYMPHOCYTES % 26.7 % (15.0-51.0); MEAN CORPUSCULAR HEMOGLOBIN 23.9 pg (29.0-33.0); MEAN CORPUSCULAR HGB CONC 29.3 g/dl (32.0-37.0); MEAN CORPUSCULAR VOLUME 81.7 fl (82.0-101.0); MEAN PLATELET VOLUME 9.5 fl (7.4-10.4); MONOCYTE # 0.5 10^3/ul (0.3-0.9); MONOCYTES % 9.5 % (0.0-11.0); NEUTROPHIL # 2.9 10^3/ul (1.6-7.5); NEUTROPHILS % 61.1 % (39.0-77.0); PLATELET COUNT 291 10^3/UL (140-415); RED BLOOD COUNT 6.06 10^6/ul (4.70-6.10); RED CELL DISTRIBUTION WIDTH 16.8 % (11.5-14.5); WHITE BLOOD COUNT 4.8 10^3/ul (4.8-10.8)
[2016-10-02 07:12] LABS: ALBUMIN 3.5 g/dl (3.3-4.9); ALBUMIN/GLOBULIN RATIO 1.12; BILIRUBIN,INDIRECT 0.2 mg/dl (0-1.1); BILIRUBIN,TOTAL 0.2 mg/dl (0.2-1.3); CALCIUM 7.4 mg/dl (8.4-10.2); CHOL/HDL RATIO 7.1 RATIO; CREATININE 8.02 mg/dl (0.61-1.24); MAGNESIUM 2.5 mg/dl (1.7-2.5); POTASSIUM 4.4 mmol/L (3.5-5.1); TOTAL PROTEIN 6.6 g/dl (6.1-8.1)
[2016-10-02] MEDS: CHOLECALCIFEROL 1,000 UNIT TAB PO SCH (09:02)
[2016-10-02] MEDS: ONDANSETRON 4 MG TAB PO SCH ×2 (09:02→20:26)
[2016-10-02] MEDS: FOLIC ACID 1 MG TAB PO SCH (09:02)
[2016-10-02] MEDS: POLYETHYLENE GLYCOL 17 GM PACKET PO SCH (09:02)
[2016-10-02] MEDS: CALCIUM CARBONATE 500 MG CHEW TAB PO SCH ×4 (09:02→18:23)
[2016-10-02] MEDS: APIXABAN 5 MG TABLET PO SCH ×2 (09:02→20:26)
[2016-10-02] MEDS: MULTIVIT/CA CARB/B CMPLX/FA TAB PO SCH (09:02)
[2016-10-02] MEDS: CALCITRIOL 0.25 MCG CAP PO SCH (09:02)
--- NOTE | 2016-10-02 09:34 | CONS ---
Date/Time of Note Date/Time of Note DATE: 10/02/16 TIME: 09:32 Assessment/Plan Assessment/Plan Chief Complaint/Hosp Course Possible syncope Preserved ejection fraction Chronic pain on narcotics Pulmonary emboli on anticoagulation End-stage renal disease on hemodialysis Borderline low blood pressure Problems: Additional Assessment/Plan 1) No evidence of arrhyhtmia on tele 2) no evidence of cardiac etiology of syncope 3) no change in cardiac meds Consultation Date/Type/Reason Admit Date/Time September 30, 2016 at 22:32 Initial Consult Date Type of Consultation: cv 24 HR Interval Summary Free Text/Dictation reports headache, no chest pain, no sob, no palpitations, no syncope or near syncope Detailed Summary Respiratory: no complaints Cardiovascular: no complaints Gastrointestinal: no complaints Musculoskeletal: no complaints Skin: no complaints Neurologic: no complaints Exam/Review of Systems Vital Signs Vitals Vital Signs Date Time Temp Pulse Resp B/P Pulse Ox O2 Delivery O2 Flow Rate FiO2 10/02/16 08:15 74 10/02/16 07:15 98.0 18 123/78 99 10/01/16 05:00 Room Air Intake and Output 10/01/16 10/01/16 10/02/16 15:00 23:00 07:00 Intake Total 400 ml 400 ml Output Total 0 ml Balance 400 ml 400 ml Exam Constitutional: alert, oriented Head: atraumatic, normocephalic ENMT: nl external ears & nose Neck: supple Respiratory: clear to auscultation Cardiovascular: regular rate and rhythm Gastrointestinal: soft Musculoskeletal: nl extremities to inspection Results Result Diagram: 10/02/16 0558 10/02/16 0558 Results 24 hrs Laboratory Tests Test 10/02/16 05:58 White Blood Count 4.8 Red Blood Count 6.06 Hemoglobin 14.5 Hematocrit 49.5 Mean Corpuscular Volume 81.7 L Mean Corpuscular Hemoglobin 23.9 L Mean Corpuscular Hemoglobin Concent 29.3 L Red Cell Distribution Width 16.8 H Platelet Count 291 Mean Platelet Volume 9.5 Neutrophils % 61.1 Lymphocytes % 26.7 Monocytes % 9.5 Eosinophils % 1.9 Basophils % 0.6 Nucleated Red Blood Cells % 0.0 Neutrophils # 2.9 Lymphocytes # 1.3 Monocytes # 0.5 Eosinophils # 0.1 Basophils # 0.0 Nucleated Red Blood Cells # 0.0 Sodium Level 136 Potassium Level 4.4 Chloride Level 98 Carbon Dioxide Level 26 Anion Gap 16 Blood Urea Nitrogen 49 #H Creatinine 8.02 #H Glucose Level 86 Hemoglobin A1c 5.7 Calcium Level 7.4 L Magnesium Level 2.5 Total Bilirubin 0.2 Direct Bilirubin 0.00 Indirect Bilirubin 0.2 Aspartate Amino Transf (AST/SGOT) 16 Alanine Aminotransferase (ALT/SGPT) 22 Alkaline Phosphatase 113 Total Protein 6.6 Albumin 3.5 Globulin 3.10 Albumin/Globulin Ratio 1.12 Triglycerides Level 190 H Cholesterol Level 221 H LDL Cholesterol, Calculated 152 HDL Cholesterol 31 Cholesterol/HDL Ratio 7.1 Medications Medications Current Medications Ondansetron HCl (Zofran Inj) 4 mg Q6H PRN IV NAUSEA AND/OR VOMITING; Start 10/01 at 03:00 Acetaminophen (Tylenol Tab) 650 mg Q6H PRN PO PAIN LEVEL 1-3 OR FEVER; Start at 03:00 Docusate Sodium (Colace) 100 mg Q12H PRN PO CONSTIPATION; Start 10/01/16 at 03: 00 Bisacodyl (Dulcolax) 5 mg DAILY PRN PO CONSTIPATION; Start 10/01/16 at 03:00 Pantoprazole (Protonix Tab) 40 mg DAILY@06 PO Last administered on 10/02/16 05: 50; Admin Dose 40 MG; Start 10/01/16 at 06:00 Apixaban (Eliquis) 2.5 mg BID PO Last administered on 10/02/16 09:02; Admin Dose 2.5 MG; Start 10/01/16 at 09:00 Calcitriol (Rocaltrol) 0.5 mcg DAILY PO Last administered on 10/02/16 09:02; Admin Dose 0.5 MCG; Start 10/01/16 at 09:00 Cholecalciferol (Vitamin D) 2,000 unit DAILY PO Last administered on 10/02/16 09:02; Admin Dose 2,000 UNIT; Start 10/01/16 at 09:00 Folic Acid (Folic Acid) 1 mg DAILY PO Last administered on 10/02/16 09:02; Admin Dose 1 MG; Start 10/01/16 at 09:00 Multivit/Ca Carb/ B Cmplx/FA/Prenat (Madison-Raul) 1 tab DAILY PO Last administered on 10/02/16 09:02; Admin Dose 1 TAB; Start 10/01/16 at 09:00 Ondansetron HCl (Zofran Tab) 4 mg BID PO Last administered on 10/02/16 09:02; Admin Dose 4 MG; Start 10/01/16 at 09:00 Zolpidem Tartrate (Ambien) 5 mg QHS PRN PO INSOMNIA Last administered on 20:59; Admin Dose 5 MG; Start 10/01/16 at 03:30 Hydromorphone HCl (Dilaudid) 4 mg Q6H PRN PO PAIN Last administered on 06:17; Admin Dose 4 MG; Start 10/01/16 at 18:30 Polyethylene Glycol (Miralax) 17 gm DAILY PO Last administered on 10/02/16 09: 02; Admin Dose 17 GM; Start 10/02/16 at 09:00 RITO HERNÁNDEZ MD October 02, 2016 09:34
--- NOTE | 2016-10-02 14:47 | CONS ---
Date/Time of Note Date/Time of Note DATE: 10/02/16 TIME: 14:44 Assessment/Plan Assessment/Plan Chief Complaint/Hosp Course 1. History of hyperparathyroidism, status post parathyroidectomy. 2. Gait disorder. 3. Syncopal episode. 4. History of fall. 5. History of gastritis. 6. History of chronic pain syndrome, History of spine surgery. 7. Hypocalcemia Problems: Additional Assessment/Plan 1. per primary 2. Fall precaution 3. Continue HD Consultation Date/Type/Reason Admit Date/Time September 30, 2016 at 22:32 Initial Consult Date 10/01/2016 Type of Consultation: nephrology Reason for Consultation dr Parks Exam/Review of Systems Vital Signs Vitals Vital Signs Date Time Temp Pulse Resp B/P Pulse Ox O2 Delivery O2 Flow Rate FiO2 10/02/16 13:08 101 18 10/02/16 11:05 98.2 105/58 99 10/01/16 05:00 Room Air Intake and Output 10/01/16 10/01/16 10/02/16 15:00 23:00 07:00 Intake Total 400 ml 400 ml Output Total 0 ml Balance 400 ml 400 ml Exam Constitutional: alert, oriented Psych: nl mood/affect, no complaints Results Result Diagram: 10/02/16 0558 10/02/16 0558 Results 24 hrs Laboratory Tests Test 10/02/16 05:58 White Blood Count 4.8 Red Blood Count 6.06 Hemoglobin 14.5 Hematocrit 49.5 Mean Corpuscular Volume 81.7 L Mean Corpuscular Hemoglobin 23.9 L Mean Corpuscular Hemoglobin Concent 29.3 L Red Cell Distribution Width 16.8 H Platelet Count 291 Mean Platelet Volume 9.5 Neutrophils % 61.1 Lymphocytes % 26.7 Monocytes % 9.5 Eosinophils % 1.9 Basophils % 0.6 Nucleated Red Blood Cells % 0.0 Neutrophils # 2.9 Lymphocytes # 1.3 Monocytes # 0.5 Eosinophils # 0.1 Basophils # 0.0 Nucleated Red Blood Cells # 0.0 Sodium Level 136 Potassium Level 4.4 Chloride Level 98 Carbon Dioxide Level 26 Anion Gap 16 Blood Urea Nitrogen 49 #H Creatinine 8.02 #H Glucose Level 86 Hemoglobin A1c 5.7 Calcium Level 7.4 L Magnesium Level 2.5 Total Bilirubin 0.2 Direct Bilirubin 0.00 Indirect Bilirubin 0.2 Aspartate Amino Transf (AST/SGOT) 16 Alanine Aminotransferase (ALT/SGPT) 22 Alkaline Phosphatase 113 Total Protein 6.6 Albumin 3.5 Globulin 3.10 Albumin/Globulin Ratio 1.12 Triglycerides Level 190 H Cholesterol Level 221 H LDL Cholesterol, Calculated 152 HDL Cholesterol 31 Cholesterol/HDL Ratio 7.1 Medications Medications Current Medications Ondansetron HCl (Zofran Inj) 4 mg Q6H PRN IV NAUSEA AND/OR VOMITING; Start 10/01 at 03:00 Acetaminophen (Tylenol Tab) 650 mg Q6H PRN PO PAIN LEVEL 1-3 OR FEVER; Start at 03:00 Docusate Sodium (Colace) 100 mg Q12H PRN PO CONSTIPATION; Start 10/01/16 at 03: 00 Bisacodyl (Dulcolax) 5 mg DAILY PRN PO CONSTIPATION; Start 10/01/16 at 03:00 Pantoprazole (Protonix Tab) 40 mg DAILY@06 PO Last administered on 10/02/16 05: 50; Admin Dose 40 MG; Start 10/01/16 at 06:00 Apixaban (Eliquis) 2.5 mg BID PO Last administered on 10/02/16 09:02; Admin Dose 2.5 MG; Start 10/01/16 at 09:00 Calcitriol (Rocaltrol) 0.5 mcg DAILY PO Last administered on 10/02/16 09:02; Admin Dose 0.5 MCG; Start 10/01/16 at 09:00 Cholecalciferol (Vitamin D) 2,000 unit DAILY PO Last administered on 10/02/16 09:02; Admin Dose 2,000 UNIT; Start 10/01/16 at 09:00 Folic Acid (Folic Acid) 1 mg DAILY PO Last administered on 10/02/16 09:02; Admin Dose 1 MG; Start 10/01/16 at 09:00 Multivit/Ca Carb/ B Cmplx/FA/Prenat ([place]-Raul) 1 tab DAILY PO Last administered on 10/02/16 09:02; Admin Dose 1 TAB; Start 10/01/16 at 09:00 Ondansetron HCl (Zofran Tab) 4 mg BID PO Last administered on 10/02/16 09:02; Admin Dose 4 MG; Start 10/01/16 at 09:00 Zolpidem Tartrate (Ambien) 5 mg QHS PRN PO INSOMNIA Last administered on 20:59; Admin Dose 5 MG; Start 10/01/16 at 03:30 Hydromorphone HCl (Dilaudid) 4 mg Q6H PRN PO PAIN Last administered on 13:31; Admin Dose 4 MG; Start 10/01/16 at 18:30 Polyethylene Glycol (Miralax) 17 gm DAILY PO Last administered on 10/02/16 09: 02; Admin Dose 17 GM; Start 10/02/16 at 09:00 ROSY HAMMER October 02, 2016 14:47
--- NOTE | 2016-10-02 15:47 | PN ---
Date/Time of Note Date/Time of Note DATE: 10/02/16 TIME: 15:45 Assessment/Plan VTE Prophylaxis VTE Prophylaxis Intervention: heparin Lines/Catheters IV [facility] Saline Lock Urinary Cath still in place: No Assessment/Plan Problems: (1) Syncope Status: Acute Comment: He has ruled out for cardiac issues and other neurologic issues. I believe this is a vasovagal syncope. He did have the impact injury to the head. To make sure we do not have any significant because of post concussive syndrome on hold him overnight but my plan is for discharge in the morning. Please note I am not going to be giving him his requested IV narcotic pain therapy Qualifiers: Syncope type: unspecified Qualified Code: R55 - Syncope, unspecified syncope type (2) Chronic pain syndrome Status: Acute Comment: He has been seen in pain management by Dr. Mtz. (3) Closed head injury Status: Acute Comment: Noted to observe till morning Qualifiers: Encounter type: initial encounter Qualified Code: S09.90XA - Closed head injury, initial encounter (4) End stage renal disease on dialysis Status: Acute Comment: As per nephrology no new changes (5) Polycystic kidney disease Status: Chronic Comment: Noted he already has renal failure (6) Diastolic dysfunction Status: Chronic Comment: He is on appropriate therapeutics Subjective 24 Hr Interval Summary Free Text/Dictation Patient reports that he is universally doing well except for the pounding headache that he has after his fall. He specifically requests brand name narcotic for this. Constitutional: no complaints Eyes: no complaints ENT: no complaints Respiratory: no complaints Cardiovascular: no complaints Genitourinary: no complaints Neurologic: headache Exam/Review of Systems Vital Signs Vitals Vital Signs Date Time Temp Pulse Resp B/P Pulse Ox O2 Delivery O2 Flow Rate FiO2 10/02/16 15:29 98.2 82 18 104/63 95 10/01/16 05:00 Room Air Intake and Output 10/01/16 10/01/16 10/02/16 15:00 23:00 07:00 Intake Total 400 ml 400 ml Output Total 0 ml Balance 400 ml 400 ml Exam Constitutional: alert, oriented Neck: non-tender, supple Respiratory: clear to auscultation, normal air movement Cardiovascular: nl pulses, regular rate and rhythm Gastrointestinal: nl liver, spleen, non-tender, soft Results Result Diagram: 10/02/16 0558 10/02/16 0558 Results 24 hrs Laboratory Tests Test 10/02/16 05:58 White Blood Count 4.8 Red Blood Count 6.06 Hemoglobin 14.5 Hematocrit 49.5 Mean Corpuscular Volume 81.7 L Mean Corpuscular Hemoglobin 23.9 L Mean Corpuscular Hemoglobin Concent 29.3 L Red Cell Distribution Width 16.8 H Platelet Count 291 Mean Platelet Volume 9.5 Neutrophils % 61.1 Lymphocytes % 26.7 Monocytes % 9.5 Eosinophils % 1.9 Basophils % 0.6 Nucleated Red Blood Cells % 0.0 Neutrophils # 2.9 Lymphocytes # 1.3 Monocytes # 0.5 Eosinophils # 0.1 Basophils # 0.0 Nucleated Red Blood Cells # 0.0 Sodium Level 136 Potassium Level 4.4 Chloride Level 98 Carbon Dioxide Level 26 Anion Gap 16 Blood Urea Nitrogen 49 #H Creatinine 8.02 #H Glucose Level 86 Hemoglobin A1c 5.7 Calcium Level 7.4 L Magnesium Level 2.5 Total Bilirubin 0.2 Direct Bilirubin 0.00 Indirect Bilirubin 0.2 Aspartate Amino Transf (AST/SGOT) 16 Alanine Aminotransferase (ALT/SGPT) 22 Alkaline Phosphatase 113 Total Protein 6.6 Albumin 3.5 Globulin 3.10 Albumin/Globulin Ratio 1.12 Triglycerides Level 190 H Cholesterol Level 221 H LDL Cholesterol, Calculated 152 HDL Cholesterol 31 Cholesterol/HDL Ratio 7.1 Medications Medications Current Medications Ondansetron HCl (Zofran Inj) 4 mg Q6H PRN IV NAUSEA AND/OR VOMITING; Start 10/01 at 03:00 Acetaminophen (Tylenol Tab) 650 mg Q6H PRN PO PAIN LEVEL 1-3 OR FEVER; Start at 03:00 Docusate Sodium (Colace) 100 mg Q12H PRN PO CONSTIPATION; Start 10/01/16 at 03: 00 Bisacodyl (Dulcolax) 5 mg DAILY PRN PO CONSTIPATION; Start 10/01/16 at 03:00 Pantoprazole (Protonix Tab) 40 mg DAILY@06 PO Last administered on 10/02/16 05: 50; Admin Dose 40 MG; Start 10/01/16 at 06:00 Apixaban (Eliquis) 2.5 mg BID PO Last administered on 10/02/16 09:02; Admin Dose 2.5 MG; Start 10/01/16 at 09:00 Calcitriol (Rocaltrol) 0.5 mcg DAILY PO Last administered on 10/02/16 09:02; Admin Dose 0.5 MCG; Start 10/01/16 at 09:00 Cholecalciferol (Vitamin D) 2,000 unit DAILY PO Last administered on 10/02/16 09:02; Admin Dose 2,000 UNIT; Start 10/01/16 at 09:00 Folic Acid (Folic Acid) 1 mg DAILY PO Last administered on 10/02/16 09:02; Admin Dose 1 MG; Start 10/01/16 at 09:00 Multivit/Ca Carb/ B Cmplx/FA/Prenat (Madison-Raul) 1 tab DAILY PO Last administered on 10/02/16 09:02; Admin Dose 1 TAB; Start 10/01/16 at 09:00 Ondansetron HCl (Zofran Tab) 4 mg BID PO Last administered on 10/02/16 09:02; Admin Dose 4 MG; Start 10/01/16 at 09:00 Zolpidem Tartrate (Ambien) 5 mg QHS PRN PO INSOMNIA Last administered on 20:59; Admin Dose 5 MG; Start 10/01/16 at 03:30 Hydromorphone HCl (Dilaudid) 4 mg Q6H PRN PO PAIN Last administered on 13:31; Admin Dose 4 MG; Start 10/01/16 at 18:30 Polyethylene Glycol (Miralax) 17 gm DAILY PO Last administered on 10/02/16 09: 02; Admin Dose 17 GM; Start 10/02/16 at 09:00 Atorvastatin Calcium (Lipitor) 20 mg HS PO ; Start 10/02/16 at 21:00 SIMON SCHULZ MD October 02, 2016 15:47
[2016-10-02] MEDS ORDERED: ATORVASTATIN 20 MG TAB PO SCH (21:00)
[2016-10-02] MEDS: ZOLPIDEM 5 MG TAB PO PRN (22:07)
[2016-10-03 00:17] VITALS: PULSE 66
[2016-10-03] MEDS: HYDROmorphONE 2 MG TAB PO PRN ×2 (01:15→06:19)
[2016-10-03 03:51] VITALS: BP 111/63; RESP 20
[2016-10-03 04:04] VITALS: PULSE 70
[2016-10-03] MEDS: PANTOPRAZOLE (EC) 40 MG TAB PO SCH (06:20)
[2016-10-03 06:54] VITALS: BP 115/55; RESP 17
[2016-10-03 08:13] VITALS: PULSE 76
[2016-10-03] MEDS: FOLIC ACID 1 MG TAB PO SCH (08:47)
[2016-10-03] MEDS: APIXABAN 5 MG TABLET PO SCH (08:47)
[2016-10-03] MEDS: CALCIUM CARBONATE 500 MG CHEW TAB PO SCH (08:47)
[2016-10-03] MEDS: MULTIVIT/CA CARB/B CMPLX/FA TAB PO SCH (08:47)
[2016-10-03] MEDS: CHOLECALCIFEROL 1,000 UNIT TAB PO SCH (08:47)
[2016-10-03] MEDS: ONDANSETRON 4 MG TAB PO SCH (08:47)
[2016-10-03] MEDS: POLYETHYLENE GLYCOL 17 GM PACKET PO SCH (08:48)
[2016-10-03] MEDS: CALCITRIOL 0.25 MCG CAP PO SCH (08:48)
--- NOTE | 2016-10-03 10:19 | PDOCDIS ---
Discharge Instructions DIAGNOSIS Discharge Diagnosis: Syncope; diastolic dysfunction; end-stage renal disease CONDITION Patient Condition: Fair HOME CARE INSTRUCTIONS: Special Diet: RENAL ACTIVITY: Activity Restrictions: Slowly Increase Activity FOLLOW UP/APPOINTMENTS Appointments Nephrology in 1 week outpatient hemodialysis center primary care physician 2 weeks SIMON SCHULZ MD October 03, 2016 10:19
[2016-10-03] MEDS ORDERED: ATOR20TA65 PO (10:20)
[2016-10-03] MEDS ORDERED: PANT40TA4 PO (10:20)
--- NOTE | 2016-10-03 10:23 | DS ---
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 The patient states that he had 2 episodes of syncope yesterday. He states that woke up from bed and felt little dizzy and then fell to the floor. His family then came and he was helped back in the bed. Than later he states that he was in the bathroom started to have lightheadedness as he was about to sit down to use the toilet, room spinning and collapse with loss of consciousness. No prodrome of chest pain or shortness of breath. He did hit his head on the floor and he sustained laceration to his forehead which she was able to stop from bleeding with a Band- Aid. Patient later that day went to dialysis. Allergies: Morphine Medications: See [facility] Hospital Course 1. History of hyperparathyroidism, status post parathyroidectomy. 2. Gait disorder. 3. Syncopal episode. 4. History of fall. 5. History of gastritis. 6. History of chronic pain syndrome, History of spine surgery. 7. Hypocalcemia Middle-aged gentleman was brought into the hospital after closed head trauma. He did relatively well under observation with steady improvement. There are no overt signs of significant concussive syndrome. He had no cardiac issues to account for the syncope and this was believed to be vasovagal. Is now discharged improved condition as compared to the time of admission he has adequate rehabilitation potential is not hazard to himself or others Home Meds Active Scripts Pantoprazole* (Pantoprazole*) 40 Mg Tablet., 40 MG PO DAILY@06 for 30 Days Prov:SIMON SCHULZ MD 10/03/16 Atorvastatin Calcium (Atorvastatin Calcium) 20 Mg Tablet, 20 MG PO HS for 30 Days, TAB Prov:SIMON SCHULZ MD 10/03/16 Apixaban* (Eliquis*) 5 Mg Tablet, 2.5 MG PO BID for 90 Days, #180 TAB Prov:DAYDAY DODSON MD 05/03/16 Reported Medications Hydromorphone Hcl* (Dilaudid*) 4 Mg Tablet, 4 MG PO QID, TAB 07/23/16 Multivit/Ca Carb/B Cmplx/Fa* (Madison-Raul*) 1 Tab Tab, 1 TAB PO DAILY, TAB 07/22/16 Cholecalciferol* (Vitamin D3*) 1,000 Unit Tablet, 2000 UNIT PO DAILY, TAB 07/22/16 Folic Acid* (Folic Acid*) 1 Mg Tablet, 1 MG PO DAILY, TAB 07/22/16 Mag Hydrox/Al Hydrox/Simeth (Antacid Plus Anti-Gas Liquid) 355 Ml Oral.susp, 10 ML PO TID 07/22/16 Zolpidem Tartrate* (Zolpidem Tartrate*) 5 Mg Tablet, 5 MG PO QHS Y for INSOMNIA , #30 TAB 07/22/16 Ondansetron Hcl* (Zofran*) 4 Mg Tab, 4 MG PO BID, TAB 07/22/16 Calcitriol* (Rocaltrol*) 0.5 Mcg Capsule, 0.5 MCG PO DAILY, CAP 07/22/16 Esomeprazole Mag Trihydrate (Nexium) 40 Mg Capsule.dr, 40 MG PO DAILY, CAP 03/05/15 Discontinued Scripts Hydrocodone/Acetaminophen ([place] 5-325 Tablet) 1 Each Tablet, 1 TAB PO Q6H Y for PAIN, #15 TAB Prov:SYL DYKES DO 07/20/16 SIMON SCHULZ MD October 03, 2016 10:23
[2016-10-03 11:19] VITALS: BP 123/73; RESP 18
--- NOTE | 2016-10-07 08:38 | RADRPT ---
Vent Rate: 60 bpm RR Interval: 0 msec MI Interval: 152 msec QRS Duration: 70 msec QT Interval: 442 msec QTC Interval: 486 msec P-R-T [place]: 73 - 88 - 66 degrees Sinus rhythm Low voltage QRS Cannot rule out Anteroseptal infarct , age undetermined Abnormal ECG Electronically Signed By: Abdias Quezada [id number]
== END 2016-10-03 12:10 | disposition home or self-care (01) ==
LOC: E/R 15:49 → INTOOBSV 22:32 → TEL 22:32
PROVIDERS: ADMIT Family Medicine; ATTEND Family Medicine
DX: R55 Syncope and collapse (principal); S09.90XA Unspecified injury of head, initial encounter; I12.0 Hypertensive chronic kidney disease with stage 5 chronic kidney disease or end stage renal disease; N18.6 End stage renal disease; Z99.2 Dependence on renal dialysis; G89.4 Chronic pain syndrome; K21.9 Gastro-esophageal reflux disease without esophagitis; E21.3 Hyperparathyroidism, unspecified; Z86.711 Personal history of pulmonary embolism; Z79.01 Long term (current) use of anticoagulants; Z88.5 Allergy status to narcotic agent; Z82.49 Family history of ischemic heart disease and other diseases of the circulatory system; R26.9 Unspecified abnormalities of gait and mobility; Z91.81 History of falling; X58.XXXA Exposure to other specified factors, initial encounter; Y93.9 Activity, unspecified; Y99.9 Unspecified external cause status; Y92.9 Unspecified place or not applicable
CPT/HCPCS: 36415; 70450; 71010; 80048; 80053; 80061; 82550; 82553; 82962; 83036; 83735; 84484; 85025; 85610; 85730; 87081; 90935; 93005; 93306; 93880; 96374; 96375; 96376; J1170; J2405; J7040; Z7500; Z7502; Z7610; 90715; 99217; G0378

== ENCOUNTER 2016-11-04 15:20 | Inpatient (IN) | payer OTHER ==
[~2016-11-04] VITALS: Ht 157.5 cm; Wt 49.8 kg
[~2016-11-04 15:20] MED LIST changes: +ATOR20TA65 PO; -HYDR-906 PO; +PANT40TA4 PO
[2016-11-04] MEDS ORDERED: METOCLOPRAMIDE 10 MG INJ IV STA (21:46)
[2016-11-04] MEDS ORDERED: HYDROmorphONE 1 MG/ML SYG IV STA (21:46)
[2016-11-04 22:20] LABS: ADD SCAN DIFF NO
[2016-11-04 22:21] LABS: BASOPHILS % 0.4 % (0.0-2.0); EOSINOPHILS % 0.6 % (0.0-7.0); HEMATOCRIT 46.2 % (42.0-52.0); HEMOGLOBIN 14.2 g/dl (14.0-18.0); LYMPHOCYTES # 0.9 10^3/ul (0.8-2.9); LYMPHOCYTES % 18.7 % (15.0-51.0); MEAN CORPUSCULAR HGB CONC 30.7 g/dl (32.0-37.0); MEAN CORPUSCULAR VOLUME 78.2 fl (82.0-101.0); MEAN PLATELET VOLUME 9.6 fl (7.4-10.4); MONOCYTE # 0.7 10^3/ul (0.3-0.9); MONOCYTES % 14.3 % (0.0-11.0); NEUTROPHIL # 3.1 10^3/ul (1.6-7.5); NEUTROPHILS % 65.2 % (39.0-77.0); PLATELET COUNT 278 10^3/UL (140-415); RED BLOOD COUNT 5.91 10^6/ul (4.70-6.10); RED CELL DISTRIBUTION WIDTH 16.8 % (11.5-14.5); WHITE BLOOD COUNT 4.8 10^3/ul (4.8-10.8)
[2016-11-04] MEDS ORDERED: IODIXANOL LOCM 100 ML BTL ONE (22:28)
[2016-11-04] MEDS ORDERED: SOD CHLORIDE 0.9% 100 ML ONE (22:28)
[2016-11-04 22:37] LABS: INR 1.06; PROTIME 13.8 Sec (12.2-14.2); PT RATIO 1.1
[2016-11-04 22:38] LABS: PARTIAL THROMBOPLASTIN TIME 33.7 Sec (25.0-35.0)
[2016-11-04 22:40] LABS: ALANINE AMINOTRANSFERASE 29 IU/L (13-69); ALBUMIN 4.4 g/dl (3.3-4.9); ALBUMIN/GLOBULIN RATIO 1.41; ALKALINE PHOSPHATASE 172 IU/L (42-121); ANION GAP 23 (8-16); ASPARTATE AMINO TRANSFERASE 25 IU/L (15-46); BILIRUBIN,INDIRECT 0.1 mg/dl (0-1.1); BILIRUBIN,TOTAL 0.1 mg/dl (0.2-1.3); BLOOD UREA NITROGEN 60 mg/dl (7-20); CALCIUM 7.4 mg/dl (8.4-10.2); CARBON DIOXIDE 27 mmol/L (21-31); CHLORIDE 89 mmol/L (97-110); CREATININE 9.77 mg/dl (0.61-1.24); GLUCOSE 109 mg/dl (70-220); POTASSIUM 4.9 mmol/L (3.5-5.1); SODIUM 134 mmol/L (135-144); TOTAL PROTEIN 7.5 g/dl (6.1-8.1)
[2016-11-04 22:52] LABS: TROPONIN-I < 0.012 ng/ml (0.00-0.12)
--- NOTE | 2016-11-04 23:25 | ERA ---
ER Documentation Chief Complaint Date/Time DATE: 11/04/16 TIME: 23:19 Chief Complaint av fistula not working, did not have dialisys HPI 51-year-old male with a history of ESRD secondary to polycystic kidney disease on hemodialysis presenting with chest pain around his left-sided HD catheter and malfunction of the catheter. He states that 2 days ago he had dialysis and it was not working very well. Today at dialysis it did not function at all. They try to declot the line but were unsuccessful. He was subsequently sent to the ER. He states that he has some pain around the catheter and around his neck. He denies any fevers, chills, headache, vision disturbance, nausea, vomiting. He does endorse some abdominal pain for the past 4 days that has been generalized, nonradiating, 5 out of 10. No associated nausea, vomiting, constipation, diarrhea, hematochezia or melena. He does not urinate. His vascular doctor is Dr. Laughlin ROS All systems reviewed and are negative except as per history of present illness. Medications Home Meds Active Scripts Pantoprazole* (Pantoprazole*) 40 Mg Tablet.dr, 40 MG PO DAILY@06 for 30 Days Prov:SIMON SCHULZ MD 10/03/16 Apixaban* (Eliquis*) 5 Mg Tablet, 2.5 MG PO BID for 90 Days, #180 TAB Prov:DAYDAY DODSON MD 05/03/16 Reported Medications Hydromorphone Hcl* (Dilaudid*) 4 Mg Tablet, 4 MG PO QID, TAB 07/23/16 Multivit/Ca Carb/B Cmplx/Fa* (Madison-Raul*) 1 Tab Tab, 1 TAB PO DAILY, TAB 07/22/16 Cholecalciferol* (Vitamin D3*) 1,000 Unit Tablet, 2000 UNIT PO DAILY, TAB 07/22/16 Folic Acid* (Folic Acid*) 1 Mg Tablet, 1 MG PO DAILY, TAB 07/22/16 Mag Hydrox/Al Hydrox/Simeth (Antacid Plus Anti-Gas Liquid) 355 Ml Oral.susp, 10 ML PO TID 07/22/16 Zolpidem Tartrate* (Zolpidem Tartrate*) 5 Mg Tablet, 5 MG PO QHS Y for INSOMNIA , #30 TAB 07/22/16 Ondansetron Hcl* (Zofran*) 4 Mg Tab, 4 MG PO BID, TAB 07/22/16 Calcitriol* (Rocaltrol*) 0.5 Mcg Capsule, 0.5 MCG PO DAILY, CAP 07/22/16 Esomeprazole Mag Trihydrate (Nexium) 40 Mg Capsule.dr, 40 MG PO DAILY, CAP 03/05/15 Discontinued Scripts Atorvastatin Calcium (Atorvastatin Calcium) 20 Mg Tablet, 20 MG PO HS for 30 Days, TAB Prov:SIMON SCHULZ MD 10/03/16 Allergies Allergies: Coded Allergies: morphine (Unverified Allergy, Mild, 11/04/16) PMhx/Soc History of Surgery: Yes (NECK SX DUE TO NECK ABSCESS) Anesthesia Reaction: No Hx Neurological Disorder: No Hx Respiratory Disorders: No Hx Cardiac Disorders: Yes (HYPOTENSION) Hx Psychiatric Problems: No Hx Miscellaneous Medical Probl: No Hx Alcohol Use: No Hx Substance Use: No Hx Tobacco Use: No Smoking Status: Never smoker FmHx Family History: other (Polycystic kidney disease), No diabetes Physical Exam Vitals Vital Signs Date Time Temp Pulse Resp B/P Pulse Ox O2 Delivery O2 Flow Rate FiO2 11/04/16 15:23 98.1 85 20 151/97 99 Physical Exam Const: Well-appearing, no distress, nontoxic Head: Atraumatic Eyes: Normal Conjunctiva ENT: Normal External Ears, Nose and Mouth. Neck: Full range of motion..~ No meningismus. Bilateral JV distention when sitting upright at 90. No flattening with inspiration. He has some swelling on the lateral aspects of his neck, soft, tender to palpation. There is some tenderness to palpation around his HD catheter site but no erythema or discharge. Resp: Bibasilar crackles present, good air movement bilaterally Cardio: Regular rate and rhythm, no murmurs Abd: Soft, diffuse lower abdominal mild tenderness to palpation without rebound or guarding, non distended. Normal bowel sounds Skin: No petechiae or rashes Back: No midline or flank tenderness Ext: No cyanosis, or edema. 2+ distal pulses. Neur: Awake and alert Psych: Normal Mood and Affect Result Diagram: 11/04/16215711/04/162157 Results 24 hrs Laboratory Tests Test 11/04/16 21:58 White Blood Count 4.810^3/ul Red Blood Count 5.9110^6/ul Hemoglobin 14.2g/dl Hematocrit 46.2% Mean Corpuscular Volume 78.2fl Mean Corpuscular Hemoglobin 24.0pg Mean Corpuscular Hemoglobin Concent 30.7g/dl Red Cell Distribution Width 16.8% Platelet Count 51255^3/UL Mean Platelet Volume 9.6fl Neutrophils % 65.2% Lymphocytes % 18.7% Monocytes % 14.3% Eosinophils % 0.6% Basophils % 0.4% Nucleated Red Blood Cells % 0.0/100WBC Neutrophils # 3.110^3/ul Lymphocytes # 0.910^3/ul Monocytes # 0.710^3/ul Eosinophils # 0.010^3/ul Basophils # 0.010^3/ul Nucleated Red Blood Cells # 0.010^3/ul Prothrombin Time 13.8Sec Prothrombin Time Ratio 1.1 INR International Normalized Ratio 1.06 Activated Partial Thromboplast Time 33.7Sec Sodium Level 134mmol/L Potassium Level 4.9mmol/L Chloride Level 89mmol/L Carbon Dioxide Level 27mmol/L Anion Gap 23 Blood Urea Nitrogen 60mg/dl Creatinine 9.77mg/dl Glucose Level 109mg/dl Calcium Level 7.4mg/dl Total Bilirubin 0.1mg/dl Direct Bilirubin 0.00mg/dl Indirect Bilirubin 0.1mg/dl Aspartate Amino Transf (AST/SGOT) 25IU/L Alanine Aminotransferase (ALT/SGPT) 29IU/L Alkaline Phosphatase 172IU/L Troponin I < 0.012ng/ml Total Protein 7.5g/dl Albumin 4.4g/dl Globulin 3.10g/dl Albumin/Globulin Ratio 1.41 Lipase 185U/L Current Medications Medications (Trade) Dose Ordered Sig/Evelina Route PRN Reason Start Time Stop Time Status Last Admin Dose Admin Hydromorphone HCl (Dilaudid) 1 mg ONCE STAT IV 11/04/16 21:46 11/04/16 21:50 DC 11/04/16 22:20 Metoclopramide HCl (Reglan) 10 mg ONCE STAT IV 11/04/16 21:46 11/04/16 21:50 DC 11/04/16 22:20 IV Flush 10 ml 10 ml STK-MED ONCE .ROUTE 11/04/16 22:28 11/04/16 22:29 DC 11/04/16 23:01 Sodium Chloride (NS) 100 ml @ ud STK-MED ONCE .ROUTE 11/04/16 22:28 11/04/16 22:29 DC 11/04/16 23:02 Iodixanol (Visipaque Locm) 100 ml STK-MED ONCE .ROUTE 11/04/16 22:28 11/04/16 22:29 DC 11/04/16 23:02 Ondansetron HCl (Zofran Inj) 4 mg BRIDGE ORDER PRN IV NAUSEA AND/OR VOMITING 11/04/16 23:30 11/05/16 23:29 Acetaminophen (Tylenol Tab) 650 mg ER BRIDGE PRN PO MILD PAIN/FEVER 11/04/16 23:30 11/05/16 23:29 Procedures/MDM Labs show evidence of end-stage renal disease, no acute abnormalities CT IV contrast chest, abdomen, pelvis: pending MDM Patient is presenting with malfunction of his dialysis catheter. Exam findings consistent with SVC syndrome. I spoke with Dr. Michael Savage, the vascular surgeon, who agreed with CT of the chest with IV contrast to evaluate for SVC syndrome. I also included CT of the abdomen and pelvis given his abdominal tenderness. His vitals are stable and he is afebrile. I have a low suspicion for acute coronary syndrome or pulmonary embolism. Patient will be admitted for exchange of his catheter and dialysis tomorrow. Patient was signed out to Dr. Davey, the admitting physician. I also asked the oncoming ER physician, Dr. Villa, to follow-up on the CT scan results and notify the appropriate physician if they are abnormal. Accepting Care Team: Current data and ongoing care discussed. Time: Time of admission Primary Provider: Tamica Consulting: Elise Outstanding Data: CT with IV contrast chest, abdomen, pelvis Departure Diagnosis: Primary Impression: Dialysis catheter clot or failure Additional Impressions: Superior vena cava syndrome Abdominal pain Qualified Code: R10.84 - Generalized abdominal pain End stage renal disease Condition: Serious CHRISTI GBISON MD Nov 04, 2016 23:25
[2016-11-04] MEDS ORDERED: ACETAMINOPHEN 325 MG TAB PO PRN (23:30)
[2016-11-04] MEDS ORDERED: ONDANSETRON 4 MG INJ IV PRN (23:30)
--- NOTE | 2016-11-05 00:05 | RADRPT ---
AMENDMENT: 11/05/2016 12:10:31 AM Miles Shoemaker call report was made to Dr. Villa at 12:10 a.m. PROCEDURE: CT chest, abdomen and pelvis with contrast. CLINICAL INDICATION: Pain, evaluate for SVC syndrome. TECHNIQUE: CT of the chest, abdomen and pelvis was performed on a multi-detector high-resolution CT scanner. Contiguous axial images were obtained after the administration of 80 cc of Visipaque 32 0 intravenous contrast. Coronal and sagittal reformatted images were also obtained. Images were re viewed on the PACS workstation. One or more of the following dose reduction techniques were used: - Automated exposure control. - Adjustment of the mA and/or kV according to patient size. - Use of iterative reconstruction technique. Exam CTD/vol = 5.87 mGy. Total exam DLP = 417.84 mGy-cm. COMPARISON: 07/24/2016 and 04/22/2016. FINDINGS: Chest: There is a left-sided Perma-Cath extending to the right atrium. There is a small nonocclusi ve eccentric filling defect within the superior vena cava. The visualized thyroid gland is unremark able. There are no enlarged axillary lymph nodes. There are no enlarged mediastinal or hilar lymph nodes. The heart is normal in size. There is a small inferior pericardial effusion. The aorta is of normal course and caliber with scattered atherosclerotic calcifications. There is no parenchymal consolidation or pleural effusion. There is mild bibasilar atelectasis. The central tracheobronchia l tree is within normal limits. There is no pneumothorax. Abdomen: The liver is normal in size. There are innumerable cysts throughout the liver with the la rgest at the dome measuring 6.6 x 8.5 cm. There is no dilatation of the biliary tree. The gallblad carmen is not distended. The spleen, pancreas and bilateral adrenal glands are within normal limits. Bilateral kidneys are enlarged with innumerable cysts and parenchymal calcifications compatible with polycystic kidneys. There is no hydronephrosis or hydroureter. There is no retroperitoneal adenop athy. The abdominal aorta is of normal caliber with scattered atherosclerotic calcifications. An IV C filter is present. There is a small hiatal hernia. There is mild thickening of the colon. There is no bowel obstructi on or free air. A normal appendix is identified. There is no diverticulosis or diverticulitis. Th ere is no ascites. Pelvis: The bladder is unremarkable. There is a small left inguinal hernia containing fat. The pr ostate and seminal vesicles are within normal limits. There is no significant pelvic adenopathy or free fluid. Evaluation of the osseous structures demonstrates no suspicious lytic or blastic lesion. There are concave deformities within the superior endplates of L2 and L3 compatible with Schmorl's nodes. Aga in demonstrated is a sclerotic density within the left T11 vertebral body extending to the pedicle m easuring 1.1 x 0.9 cm. IMPRESSION: Small, chronic appearing nonocclusive thrombus within the SVC. Left-sided Perma-Cath extending to the right atrium. Small inferior pericardial effusion. Vascular calcifications reflective of atherosclerosis. Polycystic liver and bilateral kidney disease with extensive renal parenchymal calcifications. Small hiatal hernia. Mild thickening of the colon could be due to underdistension or represent nonspecific infectious/inf lammatory colitis. Sclerotic lesion within the left T11 vertebral body, unchanged. Small left inguinal hernia containing fat. IVC filter. .Miles Loza MD, MD Date Time Electronically viewed and signed by .Miles Loza MD, MD on 11/05/2016 00:10 .T/
[2016-11-05] MEDS: HYDROCODONE/APAP (10/325) TAB PO PRN ×2 (02:07→02:14)
[2016-11-05] MEDS ORDERED: morphine 2 MG INJ IV PRN (05:00)
[2016-11-05] MEDS ORDERED: ACETAMINOPHEN 325 MG TAB PO PRN (05:00)
[2016-11-05] MEDS ORDERED: ONDANSETRON 4 MG INJ IV PRN (05:00)
[2016-11-05] MEDS ORDERED: ALBUTEROL/IPRATROPIUM (NEB) 3 ML AMP HHN PRN (05:00)
[2016-11-05] MEDS ORDERED: NACL 0.9% 3 ML SYG IV SCH (05:00)
[2016-11-05 05:54] LABS: ADD SCAN DIFF NO
[2016-11-05 05:56] LABS: BASOPHILS % 0.5 % (0.0-2.0); EOSINOPHILS % 0.7 % (0.0-7.0); HEMATOCRIT 44.7 % (42.0-52.0); LYMPHOCYTES # 0.7 10^3/ul (0.8-2.9); LYMPHOCYTES % 16.5 % (15.0-51.0); MEAN CORPUSCULAR HGB CONC 31.3 g/dl (32.0-37.0); MEAN CORPUSCULAR VOLUME 76.7 fl (82.0-101.0); MEAN PLATELET VOLUME 9.3 fl (7.4-10.4); MONOCYTE # 0.6 10^3/ul (0.3-0.9); MONOCYTES % 14.4 % (0.0-11.0); NEUTROPHIL # 2.9 10^3/ul (1.6-7.5); NEUTROPHILS % 66.8 % (39.0-77.0); PLATELET COUNT 281 10^3/UL (140-415); RED BLOOD COUNT 5.83 10^6/ul (4.70-6.10); RED CELL DISTRIBUTION WIDTH 16.2 % (11.5-14.5); WHITE BLOOD COUNT 4.4 10^3/ul (4.8-10.8)
[2016-11-05 06:15] LABS: ALBUMIN 4.2 g/dl (3.3-4.9); ALBUMIN/GLOBULIN RATIO 1.55; CALCIUM 7.2 mg/dl (8.4-10.2); CREATININE 10.38 mg/dl (0.61-1.24); POTASSIUM 4.8 mmol/L (3.5-5.1); TOTAL PROTEIN 6.9 g/dl (6.1-8.1)
--- NOTE | 2016-11-05 07:05 | HP ---
DATE OF ADMISSION: 11/04/2016 TIME SEEN: 2330. CHIEF COMPLAINT: Patient was sent to the ER for malfunction of dialysis catheter. HISTORY OF PRESENT ILLNESS: The patient is a 51-year-old male with a history of polycystic kidney d isease, end-stage renal disease, on dialysis, gastritis, chronic pain syndrome, hypertension, and a history of spinal and neck abscesses, status post surgery, right lower lobe PE, on Eliquis, who was sent here because his dialysis catheter was not working. His last dialysis was on Tuesday. The pat jarek has bilateral upper extremity AV fistulas, which are nonfunctional as well. On further questio the patient reported some vague abdominal discomfort of about 1 week's duration. Otherwise no other complaint. Dr. Talamantes had been contacted by the ER staff. REVIEW OF SYSTEMS: A 12-point review of systems was performed and negative except as mentioned in th e HPI. PAST MEDICAL HISTORY: As per HPI. PAST SURGICAL HISTORY: As per HPI. SOCIAL HISTORY: Denies a history of tobacco, alcohol or illicit drug use. ALLERGIES: MORPHINE. HOME MEDICATIONS: 1. Eliquis. 2. Dilaudid. 3. Ambien. 4. Nexium. 5. Zofran. 6. Protonix. 7. Calcitriol. 8. Vitamin D3. 9. Folate. 10. Madison-Raul. PHYSICAL EXAMINATION: VITAL SIGNS: Stable. GENERAL: In no acute distress, looks comfortable. HEENT: No evidence of head deformity. Pupils are reactive to light. Extraocular muscles intact. CARDIOVASCULAR: Regular rate and rhythm, no extra sounds. LUNGS: Decreased breath sounds at the bases. ABDOMEN: Soft. There is mild tenderness/discomfort to deep palpation diffusely, with no guarding, rebound tenderness or rigidity. EXTREMITIES: Show no edema. NEUROLOGIC: No focal deficits. LABORATORY: Sodium 134, chloride 89, BUN 69, creatinine 9.77. Hemoglobin is 14.2 with MCV 78 with RDW of almost 17, otherwise the rest of basic labs are within normal limits. CT of the chest shows a small chronic-appearing nonocclusive thrombus within the superior vena cava. Mild thickening of t he colon, which is nonspecific, inflammatory versus inflammatory colitis. There is a small left ing uinal hernia containing fat and an IVC filter. IMPRESSION: 1. Dialysis catheter malfunction. 2. Nonocclusive SVC thrombus. 3. History of polycystic kidney disease with end-stage renal disease, on dialysis. 4. History of a right lower lobe pulmonary embolism, status post placement of IVC filter. 5. History of hypertension. 6. History of neck and spinal abscess, status post surgery. 7. Chronic pain syndrome. 8. Mild hyponatremia. 9. Probable infectious/inflammatory colitis. 10. Abdominal pain, likely secondary to above. PLAN: Dr. Talamantes has been contacted, who will address the dialysis catheter malfunction. Will p ilenee a nephrology consult and after placement of a new catheter he will be dialyzed. Will continue his home medications, including his Eliquis which he has been taking for PE, but now will also addre ss the nonocclusive SVC thrombus. The patient may have an inflammatory/infectious colitis, which is probably the etiology of his mild abdominal pain. For now, will manage him conservatively. He luciana l be provided pain medication. Will consider keeping him n.p.o. If the patient has diarrhea, will send for a culture. I do not believe an antibiotic is warranted at this time. Will continue his ho ga medication, with adjustments as needed. Further workup and management per clinical course. Dictated By: LACY PITTS/KAMALA Conf#: [id number] DID#: [id number]
[2016-11-05] MEDS: PANTOPRAZOLE (EC) 40 MG TAB PO SCH (08:00)
[2016-11-05 09:00] VITALS: TEMP 98.4
[2016-11-05] MEDS: AL HYDROX/MG HYDROX/SIMETH 30 ML CUP PO SCH ×5 (09:00→20:43)
[2016-11-05] MEDS: HYDROmorphONE 4 MG TAB PO SCH ×4 (09:15→20:43)
[2016-11-05] MEDS: MULTIVIT/CA CARB/B CMPLX/FA TAB PO SCH (09:16)
[2016-11-05] MEDS: CALCITRIOL 0.25 MCG CAP PO SCH (09:16)
[2016-11-05] MEDS: FOLIC ACID 1 MG TAB PO SCH (09:16)
[2016-11-05] MEDS: CHOLECALCIFEROL 2,000 UNIT CAP PO SCH (09:16)
[2016-11-05 15:58] VITALS: BP 101/63; RESP 18
[2016-11-05 16:43] VITALS: Ht 157.5 cm; Wt 49.8 kg
--- NOTE | 2016-11-05 17:08 | PN ---
Date/Time of Note Date/Time of Note DATE: 11/05/16 TIME: 17:04 Assessment/Plan VTE Prophylaxis VTE Prophylaxis Intervention: contraindicated VTE Contraindication Reason: bleeding (Risk) Assessment/Plan Chief Complaint/Hosp Course Subjective: No dialysis since Tuesday. Feels tongue is swollen. Upper extremities feel uncomfortable. Cough with no expectoration or fever. Objective: Vital signs stable Physical examination No pallor adenopathy. Positive venous distention Regular no murmurs rubs gallops CTA B Bowel sounds positive, nontender, nondistended, no RR G. Positive distended veins No edema or Homans CT Chr nonocclusive thrombus within the SVC. IVC filter Assessment and plan 1. Dialysis catheter malfunction. Stable, Cont npo; hold Eliquis for potential surgery 2. Superior vena cava thrombus; start Eliquis post catheter insertion 3. ESRD continue HD once catheter inserted 4. Chronic polycystic kidney disease 5. Chronic pulmonary embolism, stable restart Eliquis when stable 6. IVC filter status Problems: Exam/Review of Systems Vital Signs Vitals Vital Signs Date Time Temp Pulse Resp B/P Pulse Ox O2 Delivery O2 Flow Rate FiO2 11/05/16 15:58 97.5 72 18 101/63 96 11/05/16 15:21 Room Air 11/05/16 01:23 3.0 Results Result Diagram: 11/05/16 0530 11/05/16 0530 Results 24 hrs Laboratory Tests Test 11/04/16 21:58 11/05/16 05:30 White Blood Count 4.8 4.4 L Red Blood Count 5.91 5.83 Hemoglobin 14.2 14.0 Hematocrit 46.2 44.7 Mean Corpuscular Volume 78.2 L 76.7 L Mean Corpuscular Hemoglobin 24.0 L 24.0 L Mean Corpuscular Hemoglobin Concent 30.7 L 31.3 L Red Cell Distribution Width 16.8 H 16.2 H Platelet Count 278 281 Mean Platelet Volume 9.6 9.3 Neutrophils % 65.2 66.8 Lymphocytes % 18.7 16.5 Monocytes % 14.3 H 14.4 H Eosinophils % 0.6 0.7 Basophils % 0.4 0.5 Nucleated Red Blood Cells % 0.0 0.0 Neutrophils # 3.1 2.9 Lymphocytes # 0.9 0.7 L Monocytes # 0.7 0.6 Eosinophils # 0.0 0.0 Basophils # 0.0 0.0 Nucleated Red Blood Cells # 0.0 0.0 Prothrombin Time 13.8 Prothrombin Time Ratio 1.1 INR International Normalized Ratio 1.06 Activated Partial Thromboplast Time 33.7 Sodium Level 134 L 134 L Potassium Level 4.9 4.8 Chloride Level 89 L 93 L Carbon Dioxide Level 27 24 Anion Gap 23 H 22 H Blood Urea Nitrogen 60 H 61 H Creatinine 9.77 H 10.38 H Glucose Level 109 107 Calcium Level 7.4 L 7.2 L Total Bilirubin 0.1 L 0.0 L Direct Bilirubin 0.00 0.00 Indirect Bilirubin 0.1 0.0 Aspartate Amino Transf (AST/SGOT) 25 21 Alanine Aminotransferase (ALT/SGPT) 29 26 Alkaline Phosphatase 172 H 159 H Troponin I < 0.012 Total Protein 7.5 6.9 Albumin 4.4 4.2 Globulin 3.10 2.70 Albumin/Globulin Ratio 1.41 1.55 Lipase 185 Medications Medications Current Medications Acetaminophen/ Hydrocodone Bitart ([place] (10)) 1 tab Q4H PRN PO pain Last administered on 11/05/16 02:07; Admin Dose 1 TAB; Start 11/05/16 at 02:00 Ondansetron HCl (Zofran Inj) 4 mg Q6H PRN IV NAUSEA AND/OR VOMITING; Start 11/05 at 05:00 Acetaminophen (Tylenol Tab) 650 mg Q6H PRN PO PAIN LEVEL 1-3 OR FEVER; Start at 05:00 Morphine Sulfate (morphine) 2 mg Q4H PRN IV SEVERE PAIN LEVEL 7-10; Start at 05:00 Calcitriol (Rocaltrol) 0.5 mcg DAILY PO Last administered on 11/05/16 09:16; Admin Dose 0.5 MCG; Start 11/05/16 at 09:00 Cholecalciferol (Vitamin D) 2,000 unit DAILY PO Last administered on 11/05/16 09:16; Admin Dose 2,000 UNIT; Start 11/05/16 at 09:00 Folic Acid (Folic Acid) 1 mg DAILY PO Last administered on 11/05/16 09:16; Admin Dose 1 MG; Start 11/05/16 at 09:00 Hydromorphone HCl (Dilaudid) 4 mg QID PO Last administered on 11/05/16 13:31; Admin Dose 4 MG; Start 11/05/16 at 09:00 Multivit/Ca Carb/ B Cmplx/FA/Prenat (Madison-Raul) 1 tab DAILY PO Last administered on 11/05/16 09:16; Admin Dose 1 TAB; Start 11/05/16 at 09:00 Pantoprazole (Protonix Tab) 40 mg DAILY@06 PO Last administered on 11/05/16 08: 00; Admin Dose 40 MG; Start 11/05/16 at 06:00 Zolpidem Tartrate (Ambien) 5 mg QHS PRN PO INSOMNIA; Start 11/05/16 at 05:00 Al Hydrox/Mg Hydrox/Simethicone (Mag-Al Plus) 10 ml TID PO ; Start 11/05/16 at 09 :00 LAURA BYRNE MD Nov 05, 2016 17:08
[2016-11-05] MEDS ORDERED: DOCUSATE SODIUM 10 MG/ML (10ML CUP) PO PRN (17:30)
--- NOTE | 2016-11-05 18:14 | CONS ---
Date/Time of Note Date/Time of Note DATE: 11/05/16 TIME: 18:13 Assessment/Plan Assessment/Plan Chief Complaint/Hosp Course [id number] consult A/P ESRD PKD MALF HD CATH PLAN HD Problems: Consultation Date/Type/Reason Admit Date/Time Nov 04, 2016 at 23:06 Initial Consult Date Type of Consultation: renal 24 HR Interval Summary Constitutional: no complaints Exam/Review of Systems Vital Signs Vitals Vital Signs Date Time Temp Pulse Resp B/P Pulse Ox O2 Delivery O2 Flow Rate FiO2 11/05/16 15:58 97.5 72 18 101/63 96 11/05/16 15:21 Room Air 11/05/16 01:23 3.0 Exam Neck: supple Respiratory: clear to auscultation Cardiovascular: regular rate and rhythm Gastrointestinal: soft Musculoskeletal: nl extremities to inspection Extremities: normal pulses Neurological: L[employer] II-XII intact Lymph: nl lymph nodes Results Result Diagram: 11/05/16 0530 11/05/16 0530 Results 24 hrs Laboratory Tests Test 11/04/16 21:58 11/05/16 05:30 White Blood Count 4.8 4.4 L Red Blood Count 5.91 5.83 Hemoglobin 14.2 14.0 Hematocrit 46.2 44.7 Mean Corpuscular Volume 78.2 L 76.7 L Mean Corpuscular Hemoglobin 24.0 L 24.0 L Mean Corpuscular Hemoglobin Concent 30.7 L 31.3 L Red Cell Distribution Width 16.8 H 16.2 H Platelet Count 278 281 Mean Platelet Volume 9.6 9.3 Neutrophils % 65.2 66.8 Lymphocytes % 18.7 16.5 Monocytes % 14.3 H 14.4 H Eosinophils % 0.6 0.7 Basophils % 0.4 0.5 Nucleated Red Blood Cells % 0.0 0.0 Neutrophils # 3.1 2.9 Lymphocytes # 0.9 0.7 L Monocytes # 0.7 0.6 Eosinophils # 0.0 0.0 Basophils # 0.0 0.0 Nucleated Red Blood Cells # 0.0 0.0 Prothrombin Time 13.8 Prothrombin Time Ratio 1.1 INR International Normalized Ratio 1.06 Activated Partial Thromboplast Time 33.7 Sodium Level 134 L 134 L Potassium Level 4.9 4.8 Chloride Level 89 L 93 L Carbon Dioxide Level 27 24 Anion Gap 23 H 22 H Blood Urea Nitrogen 60 H 61 H Creatinine 9.77 H 10.38 H Glucose Level 109 107 Calcium Level 7.4 L 7.2 L Total Bilirubin 0.1 L 0.0 L Direct Bilirubin 0.00 0.00 Indirect Bilirubin 0.1 0.0 Aspartate Amino Transf (AST/SGOT) 25 21 Alanine Aminotransferase (ALT/SGPT) 29 26 Alkaline Phosphatase 172 H 159 H Troponin I < 0.012 Total Protein 7.5 6.9 Albumin 4.4 4.2 Globulin 3.10 2.70 Albumin/Globulin Ratio 1.41 1.55 Lipase 185 Medications Medications Current Medications Acetaminophen/ Hydrocodone Bitart ([place] ()) 1 tab Q4H PRN PO pain Last administered on 11/05/16 02:07; Admin Dose 1 TAB; Start 11/05/16 at 02:00 Ondansetron HCl (Zofran Inj) 4 mg Q6H PRN IV NAUSEA AND/OR VOMITING; Start 11/05 at 05:00 Acetaminophen (Tylenol Tab) 650 mg Q6H PRN PO PAIN LEVEL 1-3 OR FEVER; Start at 05:00 Morphine Sulfate (morphine) 2 mg Q4H PRN IV SEVERE PAIN LEVEL 7-10; Start at 05:00 Calcitriol (Rocaltrol) 0.5 mcg DAILY PO Last administered on 11/05/16 09:16; Admin Dose 0.5 MCG; Start 11/05/16 at 09:00 Cholecalciferol (Vitamin D) 2,000 unit DAILY PO Last administered on 11/05/16 09:16; Admin Dose 2,000 UNIT; Start 11/05/16 at 09:00 Folic Acid (Folic Acid) 1 mg DAILY PO Last administered on 11/05/16 09:16; Admin Dose 1 MG; Start 11/05/16 at 09:00 Hydromorphone HCl (Dilaudid) 4 mg QID PO Last administered on 11/05/16 17:53; Admin Dose 4 MG; Start 11/05/16 at 09:00 Multivit/Ca Carb/ B Cmplx/FA/Prenat (Madison-Raul) 1 tab DAILY PO Last administered on 11/05/16 09:16; Admin Dose 1 TAB; Start 11/05/16 at 09:00 Pantoprazole (Protonix Tab) 40 mg DAILY@06 PO Last administered on 11/05/16t 08: 00; Admin Dose 40 MG; Start 11/05/16 at 06:00 Zolpidem Tartrate (Ambien) 5 mg QHS PRN PO INSOMNIA; Start 11/05/16 at 05:00 Al Hydrox/Mg Hydrox/Simethicone (Mag-Al Plus) 10 ml TID PO ; Start 11/05/16 at 09 :00 Docusate Sodium (Colace Liquid Cup) 100 mg BID PRN PO CONSTIPATION; Start at 17:30 PHAN FITZGERALD MD Nov 05, 2016 18:14
--- NOTE | 2016-11-05 18:58 | CONS ---
DATE OF ADMISSION: 11/04/2016 DATE OF CONSULTATION: NEPHROLOGY CONSULTATION Thank you Dr. Giordano and Dr. Davey for kindly asking me to see this patient in nephrology [facility]. HISTORY OF PRESENT ILLNESS: The patient is a 51-year-old male with history of ESRD, history of andrzej ritis, diverticulosis, history of hyperparathyroidism, history of parathyroidectomy, history of PE, history of spinal neck abscess, and status post spinal surgery who presented with malfunctioning judy lysis catheter. The patient is being admitted for further management. The patient gets dialysis , , and Tuesday. Hematocrit 44.7. Sodium 134, potassium 4.8. The patient's abdomen and pelvis CT scan shows small chronic appearing nonocclusive thrombus within the SVC, left-sided Pe rm-A-Cath extending to the right atrium, small inferior apical effusion, vascular calcification, marisela ycystic liver and bilateral kidney disease, small hiatus hernia, mild thickening of the colon, scler otic lesion within the left T11 vertebral body, small left inguinal hernia, IVC filter. Chest CT sc an shows the patient has small chronic appearing ____. The patient is being admitted for further ma nagement. PAST MEDICAL HISTORY: Polycystic kidney disease, diverticulosis, gastritis. The patient has histor y of hyperparathyroidism, and parathyroidectomy, status post spinal fracture and abscess and surgery . ALLERGY HISTORY: MORPHINE. SOCIAL HISTORY: Negative. MEDICATION HISTORY: The patient is on, at home, 1. Apixaban. 2. Rocaltrol. 3. Vitamin D3. 4. Nexium. 5. Folic acid. 6. Hydromorphone. 7. Magnesium oxide. 8. Multivitamin. 9. Zofran. 10. Protonix. 11. Ambien. REVIEW OF SYSTEMS: HEENT: Unremarkable. RESPIRATORY: Unremarkable. CARDIOVASCULAR: Unremarkable. ABDOMEN: Dyspepsia. EXTREMITIES: On and off pain. PHYSICAL EXAMINATION: GENERAL: The patient is awake, alert. VITAL SIGNS: Pulse 72, blood pressure 101/53. HEAD: Atraumatic, normocephalic. Pupils are equal, reactive to light. No pallor or conjunctival i cterus. NECK: Large. LUNGS: Clear. CARDIOVASCULAR: S1, S2 normal. Systolic murmur noted. The patient has neck vein with distention n oted. ABDOMEN: Soft. Polycystic kidney disease noted. EXTREMITIES: No cyanosis, clubbing, or edema. CENTRAL NERVOUS SYSTEM: The patient is awake, alert, with clotted graft in the upper extremity and swelling of the neck noted, chronic. IMPRESSION: 1. Malfunctioning dialysis catheter. 2. End-stage renal disease. 3. Hyponatremia. 4. Hyperparathyroidism status post parathyroidectomy. 5. History of polycystic kidney disease. 6. The patient has secondary polycythemia. 7. History of diverticulosis. 8. History of gastritis. PLAN: The patient is currently on docusate sodium, calcitriol, cholecalciferol, folic acid, Dilaudi d, and Madison-Raul. The patient is on ____ which should be discontinued. The patient is also on Zofr an. The patient will have hemodialysis tried with ____ use if unsuccessful. Otherwise, the patient will have catheter change. Thank you, Dr. Giordano and Dr. Davey, for kindly asking me to see this patient in nephrology cons ultation. Dictated By: PHAN CAMPBELL/KAMALA Conf#: [id number] DID#: [id number]
[2016-11-05 19:49] VITALS: BP 101/66; RESP 18
[2016-11-06] VITALS (11 sets, daily range): BP systolic 93–104; BP diastolic 45–73; PULSE 68–98; RESP 20–24
[2016-11-06] MEDS: HYDROCODONE/APAP (10/325) TAB PO PRN ×2 (01:00→23:07)
[2016-11-06 06:06] LABS: ADD SCAN DIFF NO
[2016-11-06 06:30] LABS: BASOPHILS % 0.6 % (0.0-2.0); EOSINOPHILS # 0.1 10^3/ul (0.0-0.5); EOSINOPHILS % 2.4 % (0.0-7.0); HEMATOCRIT 43.7 % (42.0-52.0); HEMOGLOBIN 13.5 g/dl (14.0-18.0); LYMPHOCYTES # 1.3 10^3/ul (0.8-2.9); LYMPHOCYTES % 25.5 % (15.0-51.0); MEAN CORPUSCULAR HEMOGLOBIN 24.2 pg (29.0-33.0); MEAN CORPUSCULAR HGB CONC 30.9 g/dl (32.0-37.0); MEAN CORPUSCULAR VOLUME 78.3 fl (82.0-101.0); MEAN PLATELET VOLUME 9.5 fl (7.4-10.4); MONOCYTE # 0.7 10^3/ul (0.3-0.9); MONOCYTES % 14.1 % (0.0-11.0); NEUTROPHIL # 2.8 10^3/ul (1.6-7.5); NEUTROPHILS % 56.4 % (39.0-77.0); PLATELET COUNT 329 10^3/UL (140-415); RED BLOOD COUNT 5.58 10^6/ul (4.70-6.10); WHITE BLOOD COUNT 4.9 10^3/ul (4.8-10.8)
[2016-11-06] MEDS: PANTOPRAZOLE (EC) 40 MG TAB PO SCH (06:31)
[2016-11-06 07:11] LABS: INR 1.02; PROTIME 13.4 Sec (12.2-14.2)
[2016-11-06 07:15] LABS: ALBUMIN 3.9 g/dl (3.3-4.9); ALBUMIN/GLOBULIN RATIO 1.39; CALCIUM 7.2 mg/dl (8.4-10.2); CREATININE 11.51 mg/dl (0.61-1.24); POTASSIUM 5.4 mmol/L (3.5-5.1); TOTAL PROTEIN 6.7 g/dl (6.1-8.1)
[2016-11-06 07:23] LABS: PARTIAL THROMBOPLASTIN TIME 37.5 Sec (25.0-35.0)
[2016-11-06 07:28] LABS: CALCIUM 7.1 mg/dl (8.4-10.2); CREATININE 11.28 mg/dl (0.61-1.24); MAGNESIUM 2.4 mg/dl (1.7-2.5); PHOSPHORUS 5.1 mg/dl (2.5-4.9); POTASSIUM 5.8 mmol/L (3.5-5.1)
[2016-11-06 07:45] LABS: THYROID STIMULATING HORMONE 2.77 MIU/L (0.465-4.680)
[2016-11-06] MEDS: AL HYDROX/MG HYDROX/SIMETH 30 ML CUP PO SCH ×3 (09:00→20:39)
[2016-11-06] MEDS: MULTIVIT/CA CARB/B CMPLX/FA TAB PO SCH ×2 (09:00→13:08)
[2016-11-06] MEDS: CALCITRIOL 0.25 MCG CAP PO SCH ×2 (09:00→13:09)
[2016-11-06] MEDS: HYDROmorphONE 4 MG TAB PO SCH ×6 (09:00→20:39)
[2016-11-06] MEDS: FOLIC ACID 1 MG TAB PO SCH ×2 (09:00→13:07)
[2016-11-06] MEDS: CHOLECALCIFEROL 2,000 UNIT CAP PO SCH ×2 (09:00→13:07)
--- NOTE | 2016-11-06 12:03 | CONS ---
Date/Time of Note Date/Time of Note DATE: 11/06/16 TIME: 12:02 Assessment/Plan Assessment/Plan Chief Complaint/Hosp Course 1. Malfunctioning dialysis catheter. 2. End-stage renal disease. 3. Hyponatremia. 4. Hyperparathyroidism status post parathyroidectomy. 5. History of polycystic kidney disease. 6. The patient has secondary polycythemia. 7. History of diverticulosis. 8. History of gastritis. 9. Hyperphosphatemia Problems: Additional Assessment/Plan 1. Continue HD 2. Start phoslo Consultation Date/Type/Reason Admit Date/Time Nov 04, 2016 at 23:06 Initial Consult Date 11/04/2016 Type of Consultation: renal Reason for Consultation Dr Parks Exam/Review of Systems Vital Signs Vitals Vital Signs Date Time Temp Pulse Resp B/P Pulse Ox O2 Delivery O2 Flow Rate FiO2 11/06/16 09:45 98 18 11/06/16 08:13 98.0 101/63 96 11/05/16 20:00 Room Air 11/05/16 01:23 3.0 Intake and Output 11/05/16 11/05/16 11/06/16 15:00 23:00 07:00 Intake Total 400 ml Balance 400 ml Exam Constitutional: alert, oriented Psych: no complaints Neck: supple Respiratory: clear to auscultation Cardiovascular: regular rate and rhythm Gastrointestinal: soft Results Result Diagram: 11/06/16 0548 11/06/16 0548 Results 24 hrs Laboratory Tests Test 11/06/16 05:48 White Blood Count 4.9 Red Blood Count 5.58 Hemoglobin 13.5 L Hematocrit 43.7 Mean Corpuscular Volume 78.3 L Mean Corpuscular Hemoglobin 24.2 L Mean Corpuscular Hemoglobin Concent 30.9 L Red Cell Distribution Width 17.0 H Platelet Count 329 Mean Platelet Volume 9.5 Neutrophils % 56.4 Lymphocytes % 25.5 Monocytes % 14.1 H Eosinophils % 2.4 Basophils % 0.6 Nucleated Red Blood Cells % 0.0 Neutrophils # 2.8 Lymphocytes # 1.3 Monocytes # 0.7 Eosinophils # 0.1 Basophils # 0.0 Nucleated Red Blood Cells # 0.0 Prothrombin Time 13.4 Prothrombin Time Ratio 1.0 INR International Normalized Ratio 1.02 Activated Partial Thromboplast Time 37.5 H Sodium Level 136 Potassium Level 5.4 H Chloride Level 91 L Carbon Dioxide Level 25 Anion Gap 25 H Blood Urea Nitrogen 72 H Creatinine 11.51 H Glucose Level 87 Hemoglobin A1c 5.9 Calcium Level 7.2 L Phosphorus Level 5.1 H Magnesium Level 2.4 Total Bilirubin 0.0 L Direct Bilirubin 0.00 Indirect Bilirubin 0.0 Aspartate Amino Transf (AST/SGOT) 19 Alanine Aminotransferase (ALT/SGPT) 28 Alkaline Phosphatase 146 H Total Protein 6.7 Albumin 3.9 Globulin 2.80 Albumin/Globulin Ratio 1.39 Thyroid Stimulating Hormone (TSH) 2.770 Medications Medications Current Medications Acetaminophen/ Hydrocodone Bitart ([place] (10)) 1 tab Q4H PRN PO pain Last administered on 11/06/16 01:00; Admin Dose 1 TAB; Start 11/05/16 at 02:00 Ondansetron HCl (Zofran Inj) 4 mg Q6H PRN IV NAUSEA AND/OR VOMITING; Start 11/05 at 05:00 Acetaminophen (Tylenol Tab) 650 mg Q6H PRN PO PAIN LEVEL 1-3 OR FEVER; Start at 05:00 Morphine Sulfate (morphine) 2 mg Q4H PRN IV SEVERE PAIN LEVEL 7-10; Start at 05:00 Calcitriol (Rocaltrol) 0.5 mcg DAILY PO Last administered on 11/05/16 09:16; Admin Dose 0.5 MCG; Start 11/05/16 at 09:00 Cholecalciferol (Vitamin D) 2,000 unit DAILY PO Last administered on 11/05/16 09:16; Admin Dose 2,000 UNIT; Start 11/05/16 at 09:00 Folic Acid (Folic Acid) 1 mg DAILY PO Last administered on 11/05/16 09:16; Admin Dose 1 MG; Start 11/05/16 at 09:00 Hydromorphone HCl (Dilaudid) 4 mg QID PO Last administered on 11/06/16 10:57; Admin Dose 4 MG; Start 11/05/16 at 09:00 Multivit/Ca Carb/ B Cmplx/FA/Prenat ([place]-Raul) 1 tab DAILY PO Last administered on 11/05/16 09:16; Admin Dose 1 TAB; Start 11/05/16 at 09:00 Pantoprazole (Protonix Tab) 40 mg DAILY@06 PO Last administered on 6/10/17at 06 :31; Admin Dose 40 MG; Start 11/05/16 at 06:00 Zolpidem Tartrate (Ambien) 5 mg QHS PRN PO INSOMNIA; Start 11/05/16 at 05:00 Al Hydrox/Mg Hydrox/Simethicone (Mag-Al Plus) 10 ml TID PO ; Start 11/05/16 at 09 :00 Docusate Sodium (Colace Liquid Cup) 100 mg BID PRN PO CONSTIPATION; Start at 17:30 ROSY HAMMER Nov 06, 2016 12:03
[2016-11-06] MEDS: CALCIUM ACETATE 667 MG CAP PO SCH ×2 (13:09→17:50)
--- NOTE | 2016-11-06 16:56 | RADRPT ---
Vent Rate: 103 bpm RR Interval: 0 msec MI Interval: 144 msec QRS Duration: 76 msec QT Interval: 428 msec QTC Interval: 560 msec P-R-T [place]: 73 - 103 - 71 degrees Sinus tachycardia with frequent , and consecutive premature ventricular complexes Rightward axis Low voltage QRS Cannot rule out Anteroseptal infarct , age undetermined Abnormal ECG Nonspecific ST-T changes No previous tracing available for comparison Electronically Signed By: Mina Aguilar [id number]
[2016-11-06] MEDS ORDERED: ALTEPLASE (CATHFLO) 2 MG INJ CATHETER ONE (18:00)
--- NOTE | 2016-11-06 19:55 | PN ---
Date/Time of Note Date/Time of Note DATE: 11/06/16 TIME: 19:52 Assessment/Plan VTE Prophylaxis VTE Prophylaxis Intervention: ambulation Lines/Catheters IV Catheter Type (from Nrs): perm-a-cath Urinary Cath still in place: No Assessment/Plan Chief Complaint/Hosp Course S: 11/05 no dialysis since Tuesday. Feels tongue is swollen. Upper extremities feel uncomfortable. Cough with no expectoration or fever. 11/06: Successful dialysis post TPA? O: Vss Pe No pallor. + jvd Reg; no m/r/g CTAB Bs+ nontender, nondistended, no RRG. Positive distended veins No edema or Homans CT Chr nonocclusive thrombus within the SVC. IVC filter Assessment and plan 1. Dialysis catheter malfunction. Stable, Cont HD. Restart Eliquis as no plan for surgery at this time. 2. Superior vena cava thrombus; restart Eliquis 3. ESRD continue HD 4. Chronic polycystic kidney disease 5. Chronic pulmonary embolism, stable restart Eliquis 6. IVC filter status Problems: Exam/Review of Systems Vital Signs Vitals Vital Signs Date Time Temp Pulse Resp B/P Pulse Ox O2 Delivery O2 Flow Rate FiO2 11/06/16 09:45 98 18 11/06/16 08:13 98.0 101/63 96 11/05/16 20:00 Room Air 11/05/16 01:23 3.0 Intake and Output 11/05/16 11/05/16 11/06/16 15:00 23:00 07:00 Intake Total 400 ml Balance 400 ml Results Result Diagram: 11/06/16 0548 11/06/16 0548 Results 24 hrs Laboratory Tests Test 11/06/16 05:48 White Blood Count 4.9 Red Blood Count 5.58 Hemoglobin 13.5 L Hematocrit 43.7 Mean Corpuscular Volume 78.3 L Mean Corpuscular Hemoglobin 24.2 L Mean Corpuscular Hemoglobin Concent 30.9 L Red Cell Distribution Width 17.0 H Platelet Count 329 Mean Platelet Volume 9.5 Neutrophils % 56.4 Lymphocytes % 25.5 Monocytes % 14.1 H Eosinophils % 2.4 Basophils % 0.6 Nucleated Red Blood Cells % 0.0 Neutrophils # 2.8 Lymphocytes # 1.3 Monocytes # 0.7 Eosinophils # 0.1 Basophils # 0.0 Nucleated Red Blood Cells # 0.0 Prothrombin Time 13.4 Prothrombin Time Ratio 1.0 INR International Normalized Ratio 1.02 Activated Partial Thromboplast Time 37.5 H Sodium Level 136 Potassium Level 5.4 H Chloride Level 91 L Carbon Dioxide Level 25 Anion Gap 25 H Blood Urea Nitrogen 72 H Creatinine 11.51 H Glucose Level 87 Hemoglobin A1c 5.9 Calcium Level 7.2 L Phosphorus Level 5.1 H Magnesium Level 2.4 Total Bilirubin 0.0 L Direct Bilirubin 0.00 Indirect Bilirubin 0.0 Aspartate Amino Transf (AST/SGOT) 19 Alanine Aminotransferase (ALT/SGPT) 28 Alkaline Phosphatase 146 H Total Protein 6.7 Albumin 3.9 Globulin 2.80 Albumin/Globulin Ratio 1.39 Thyroid Stimulating Hormone (TSH) 2.770 Medications Medications Current Medications Acetaminophen/ Hydrocodone Bitart ([place] (10)) 1 tab Q4H PRN PO pain Last administered on 11/06/16 01:00; Admin Dose 1 TAB; Start 11/05/16 at 02:00 Ondansetron HCl (Zofran Inj) 4 mg Q6H PRN IV NAUSEA AND/OR VOMITING; Start 11/05 at 05:00 Acetaminophen (Tylenol Tab) 650 mg Q6H PRN PO PAIN LEVEL 1-3 OR FEVER; Start at 05:00 Morphine Sulfate (morphine) 2 mg Q4H PRN IV SEVERE PAIN LEVEL 7-10; Start at 05:00 Calcitriol (Rocaltrol) 0.5 mcg DAILY PO Last administered on 11/06/16 13:09; Admin Dose 0.5 MCG; Start 11/05/16 at 09:00 Cholecalciferol (Vitamin D) 2,000 unit DAILY PO Last administered on 11/06/16 13:07; Admin Dose 2,000 UNIT; Start 11/05/16 at 09:00 Folic Acid (Folic Acid) 1 mg DAILY PO Last administered on 11/06/16 13:07; Admin Dose 1 MG; Start 11/05/16 at 09:00 Hydromorphone HCl (Dilaudid) 4 mg QID PO Last administered on 11/06/16 17:50; Admin Dose 4 MG; Start 11/05/16 at 09:00 Multivit/Ca Carb/ B Cmplx/FA/Prenat ([place]-Raul) 1 tab DAILY PO Last administered on 11/06/16 13:08; Admin Dose 1 TAB; Start 11/05/16 at 09:00 Pantoprazole (Protonix Tab) 40 mg DAILY@06 PO Last administered on 11/06/16 06 :31; Admin Dose 40 MG; Start 11/05/16 at 06:00 Zolpidem Tartrate (Ambien) 5 mg QHS PRN PO INSOMNIA; Start 11/05/16 at 05:00 Al Hydrox/Mg Hydrox/Simethicone (Mag-Al Plus) 10 ml TID PO ; Start 11/05/16 at 09 :00 Docusate Sodium (Colace Liquid Cup) 100 mg BID PRN PO CONSTIPATION; Start at 17:30 LAURA BYRNE MD Nov 06, 2016 19:55
[2016-11-06] MEDS: APIXABAN 5 MG TABLET PO SCH (20:39)
[2016-11-06] MEDS: LACTOBACILLUS RHAMNOSUS CAP PO SCH (20:39)
[2016-11-06] MEDS: ZOLPIDEM 5 MG TAB PO PRN (23:57)
[2016-11-07] MEDS: PANTOPRAZOLE (EC) 40 MG TAB PO SCH (05:25)
[2016-11-07 06:13] LABS: ADD SCAN DIFF NO
[2016-11-07 06:17] LABS: BASOPHILS % 0.5 % (0.0-2.0); EOSINOPHILS # 0.1 10^3/ul (0.0-0.5); EOSINOPHILS % 1.7 % (0.0-7.0); HEMATOCRIT 45.8 % (42.0-52.0); HEMOGLOBIN 14.1 g/dl (14.0-18.0); LYMPHOCYTES # 1.3 10^3/ul (0.8-2.9); LYMPHOCYTES % 22.3 % (15.0-51.0); MEAN CORPUSCULAR HEMOGLOBIN 23.9 pg (29.0-33.0); MEAN CORPUSCULAR HGB CONC 30.8 g/dl (32.0-37.0); MEAN CORPUSCULAR VOLUME 77.6 fl (82.0-101.0); MEAN PLATELET VOLUME 9.3 fl (7.4-10.4); MONOCYTE # 0.6 10^3/ul (0.3-0.9); MONOCYTES % 10.2 % (0.0-11.0); NEUTROPHIL # 3.9 10^3/ul (1.6-7.5); NEUTROPHILS % 64.5 % (39.0-77.0); PLATELET COUNT 418 10^3/UL (140-415)
[2016-11-07 07:00] LABS: CALCIUM 7.3 mg/dl (8.4-10.2); CREATININE 9.78 mg/dl (0.61-1.24); POTASSIUM 4.4 mmol/L (3.5-5.1)
[2016-11-07 07:30] VITALS: BP 126/57; RESP 16
[2016-11-07] MEDS: AL HYDROX/MG HYDROX/SIMETH 30 ML CUP PO SCH ×3 (09:00→20:30)
[2016-11-07] MEDS: HYDROmorphONE 4 MG TAB PO SCH ×4 (10:15→20:23)
[2016-11-07] MEDS: LACTOBACILLUS RHAMNOSUS CAP PO SCH ×2 (10:16→20:25)
[2016-11-07] MEDS: MULTIVIT/CA CARB/B CMPLX/FA TAB PO SCH (10:16)
[2016-11-07] MEDS: CALCIUM ACETATE 667 MG CAP PO SCH ×3 (10:17→17:22)
[2016-11-07] MEDS: CALCITRIOL 0.25 MCG CAP PO SCH (10:17)
[2016-11-07] MEDS: CHOLECALCIFEROL 2,000 UNIT CAP PO SCH (10:17)
[2016-11-07] MEDS: FOLIC ACID 1 MG TAB PO SCH (10:17)
[2016-11-07] MEDS: APIXABAN 5 MG TABLET PO SCH ×2 (10:17→20:23)
--- NOTE | 2016-11-07 14:11 | PN ---
Date/Time of Note Date/Time of Note DATE: 11/07/16 TIME: 14:10 Assessment/Plan VTE Prophylaxis VTE Prophylaxis Intervention: ambulation Lines/Catheters IV Catheter Type (from Nrs): perma cath for HD Urinary Cath still in place: No Assessment/Plan Chief Complaint/Hosp Course S: 11/05 no dialysis since Tuesday. Feels tongue is swollen. Upper extremities feel uncomfortable. Cough with no expectoration or fever. 11/06: Successful dialysis post TPA? 11/06: Feels better. O: Vss Pe No pallor Reg; no m/r/g CTAB Bs+ nt nd no RRG. No edema or Homans CT Chr nonocclusive thrombus within the SVC. IVC filter Assessment and plan 1. Dialysis catheter malfunction. Stable, Cont HD. Restart Eliquis as no plan for surgery at this time. 2. Superior vena cava thrombus; restart Eliquis 3. ESRD continue HD; discharge home if okay with nephrology. 4. Chronic polycystic kidney disease 5. Chronic pulmonary embolism, stable restart Eliquis 6. IVC filter status Problems: Exam/Review of Systems Vital Signs Vitals Vital Signs Date Time Temp Pulse Resp B/P Pulse Ox O2 Delivery O2 Flow Rate FiO2 11/07/16 07:30 97.1 72 16 126/57 97 11/06/16 20:30 Room Air 11/05/16 01:23 3.0 Intake and Output 11/06/16 11/06/16 11/07/16 15:00 23:00 07:00 Intake Total 500 ml 240 ml 360 ml Output Total 2500 ml Balance -2000 ml 240 ml 360 ml Results Result Diagram: 11/07/16 0525 11/07/16 0525 Results 24 hrs Laboratory Tests Test 11/07/16 05:25 White Blood Count 6.0 # Red Blood Count 5.90 Hemoglobin 14.1 Hematocrit 45.8 Mean Corpuscular Volume 77.6 L Mean Corpuscular Hemoglobin 23.9 L Mean Corpuscular Hemoglobin Concent 30.8 L Red Cell Distribution Width 16.0 H Platelet Count 418 #H Mean Platelet Volume 9.3 Neutrophils % 64.5 Lymphocytes % 22.3 Monocytes % 10.2 Eosinophils % 1.7 Basophils % 0.5 Nucleated Red Blood Cells % 0.0 Neutrophils # 3.9 Lymphocytes # 1.3 Monocytes # 0.6 Eosinophils # 0.1 Basophils # 0.0 Nucleated Red Blood Cells # 0.0 Sodium Level 137 Potassium Level 4.4 Chloride Level 96 L Carbon Dioxide Level 22 Anion Gap 23 H Blood Urea Nitrogen 56 H Creatinine 9.78 H Glucose Level 91 Calcium Level 7.3 L Medications Medications Current Medications Acetaminophen/ Hydrocodone Bitart ([place] (10)) 1 tab Q4H PRN PO pain Last administered on 11/06/16 23:07; Admin Dose 1 TAB; Start 11/05/16 at 02:00 Ondansetron HCl (Zofran Inj) 4 mg Q6H PRN IV NAUSEA AND/OR VOMITING; Start 11/05 at 05:00 Acetaminophen (Tylenol Tab) 650 mg Q6H PRN PO PAIN LEVEL 1-3 OR FEVER; Start at 05:00 Morphine Sulfate (morphine) 2 mg Q4H PRN IV SEVERE PAIN LEVEL 7-10; Start at 05:00 Calcitriol (Rocaltrol) 0.5 mcg DAILY PO Last administered on 11/07/16 10:17; Admin Dose 0.5 MCG; Start 11/05/16 at 09:00 Cholecalciferol (Vitamin D) 2,000 unit DAILY PO Last administered on 11/07/16 10:17; Admin Dose 2,000 UNIT; Start 11/05/16 at 09:00 Folic Acid (Folic Acid) 1 mg DAILY PO Last administered on 11/07/16 10:17; Admin Dose 1 MG; Start 11/05/16 at 09:00 Hydromorphone HCl (Dilaudid) 4 mg QID PO Last administered on 11/07/16 13:00; Admin Dose 4 MG; Start 11/05/16 at 09:00 Multivit/Ca Carb/ B Cmplx/FA/Prenat ([place]-Raul) 1 tab DAILY PO Last administered on 11/07/16 10:16; Admin Dose 1 TAB; Start 11/05/16 at 09:00 Pantoprazole (Protonix Tab) 40 mg DAILY@06 PO Last administered on 11/07/16 05 :25; Admin Dose 40 MG; Start 11/05/16 at 06:00 Zolpidem Tartrate (Ambien) 5 mg QHS PRN PO INSOMNIA Last administered on 23:57; Admin Dose 5 MG; Start 11/05/16 at 05:00 Al Hydrox/Mg Hydrox/Simethicone (Mag-Al Plus) 10 ml TID PO ; Start 11/05/16 at 09 :00 Docusate Sodium (Colace Liquid Cup) 100 mg BID PRN PO CONSTIPATION; Start at 17:30 Apixaban (Eliquis) 2.5 mg BID PO Last administered on 11/07/16 10:17; Admin Dose 2.5 MG; Start 11/06/16 at 21:00 Lactobacillus Acidophilus/ Rhamnosus (Culturelle) 1 cap BID PO Last administered on 11/07/16 10:16; Admin Dose 1 CAP; Start 11/06/16 at 21:00 LAURA BYRNE MD Nov 07, 2016 14:11
--- NOTE | 2016-11-07 16:20 | CONS ---
Date/Time of Note Date/Time of Note DATE: 11/07/16 TIME: 16:19 Assessment/Plan Assessment/Plan Chief Complaint/Hosp Course IMPRESSION: 1. Malfunctioning dialysis catheter. 2. End-stage renal disease. 3. Hyponatremia. 4. Hyperparathyroidism status post parathyroidectomy. 5. History of polycystic kidney disease. 6. The patient has secondary polycythemia. 7. History of diverticulosis. 8. History of gastritis. plan hd am w activase Problems: Consultation Date/Type/Reason Admit Date/Time Nov 04, 2016 at 23:06 Type of Consultation: renal 24 HR Interval Summary Constitutional: no complaints Exam/Review of Systems Vital Signs Vitals Vital Signs Date Time Temp Pulse Resp B/P Pulse Ox O2 Delivery O2 Flow Rate FiO2 11/07/16 07:30 97.1 72 16 126/57 97 11/06/16 20:30 Room Air 11/05/16 01:23 3.0 Intake and Output 11/06/16 11/06/16 11/07/16 15:00 23:00 07:00 Intake Total 500 ml 240 ml 360 ml Output Total 2500 ml Balance -2000 ml 240 ml 360 ml Exam Respiratory: clear to auscultation Cardiovascular: regular rate and rhythm Gastrointestinal: bowel sounds (+), soft Extremities: normal pulses Results Result Diagram: 11/07/16 0525 11/07/16 0525 Results 24 hrs Laboratory Tests Test 11/07/16 05:25 White Blood Count 6.0 # Red Blood Count 5.90 Hemoglobin 14.1 Hematocrit 45.8 Mean Corpuscular Volume 77.6 L Mean Corpuscular Hemoglobin 23.9 L Mean Corpuscular Hemoglobin Concent 30.8 L Red Cell Distribution Width 16.0 H Platelet Count 418 #H Mean Platelet Volume 9.3 Neutrophils % 64.5 Lymphocytes % 22.3 Monocytes % 10.2 Eosinophils % 1.7 Basophils % 0.5 Nucleated Red Blood Cells % 0.0 Neutrophils # 3.9 Lymphocytes # 1.3 Monocytes # 0.6 Eosinophils # 0.1 Basophils # 0.0 Nucleated Red Blood Cells # 0.0 Sodium Level 137 Potassium Level 4.4 Chloride Level 96 L Carbon Dioxide Level 22 Anion Gap 23 H Blood Urea Nitrogen 56 H Creatinine 9.78 H Glucose Level 91 Calcium Level 7.3 L Medications Medications Current Medications Acetaminophen/ Hydrocodone Bitart ([place] (10/325)) 1 tab Q4H PRN PO pain Last administered on 11/06/16 23:07; Admin Dose 1 TAB; Start 11/05/16 at 02:00 Ondansetron HCl (Zofran Inj) 4 mg Q6H PRN IV NAUSEA AND/OR VOMITING; Start 11/05 at 05:00 Acetaminophen (Tylenol Tab) 650 mg Q6H PRN PO PAIN LEVEL 1-3 OR FEVER; Start at 05:00 Morphine Sulfate (morphine) 2 mg Q4H PRN IV SEVERE PAIN LEVEL 7-10; Start at 05:00 Calcitriol (Rocaltrol) 0.5 mcg DAILY PO Last administered on 11/07/16 10:17; Admin Dose 0.5 MCG; Start 11/05/16 at 09:00 Cholecalciferol (Vitamin D) 2,000 unit DAILY PO Last administered on 11/07/16 10:17; Admin Dose 2,000 UNIT; Start 11/05/16 at 09:00 Folic Acid (Folic Acid) 1 mg DAILY PO Last administered on 11/07/16 10:17; Admin Dose 1 MG; Start 11/05/16 at 09:00 Hydromorphone HCl (Dilaudid) 4 mg QID PO Last administered on 11/07/16 13:00; Admin Dose 4 MG; Start 11/05/16 at 09:00 Multivit/Ca Carb/ B Cmplx/FA/Prenat ([place]-Raul) 1 tab DAILY PO Last administered on 11/07/16 10:16; Admin Dose 1 TAB; Start 11/05/16 at 09:00 Pantoprazole (Protonix Tab) 40 mg DAILY@06 PO Last administered on 11/07/16 05 :25; Admin Dose 40 MG; Start 11/05/16 at 06:00 Zolpidem Tartrate (Ambien) 5 mg QHS PRN PO INSOMNIA Last administered on 23:57; Admin Dose 5 MG; Start 11/05/16 at 05:00 Al Hydrox/Mg Hydrox/Simethicone (Mag-Al Plus) 10 ml TID PO ; Start 11/05/16 at 09 :00 Docusate Sodium (Colace Liquid Cup) 100 mg BID PRN PO CONSTIPATION; Start at 17:30 Apixaban (Eliquis) 2.5 mg BID PO Last administered on 11/07/16 10:17; Admin Dose 2.5 MG; Start 11/06/16 at 21:00 Lactobacillus Acidophilus/ Rhamnosus (Culturelle) 1 cap BID PO Last administered on 11/07/16 10:16; Admin Dose 1 CAP; Start 11/06/16 at 21:00 PHAN FITZGERALD MD Nov 07, 2016 16:20
[2016-11-07 19:13] VITALS: BP 94/62; RESP 18
[2016-11-07] MEDS: ZOLPIDEM 5 MG TAB PO PRN (22:08)
[2016-11-08] VITALS (9 sets, daily range): BP systolic 97–112; BP diastolic 48–63; PULSE 77–81; RESP 18–20
[2016-11-08] MEDS: HYDROCODONE/APAP (10/325) TAB PO PRN ×4 (00:56→23:01)
[2016-11-08 05:48] LABS: ADD SCAN DIFF NO
[2016-11-08] MEDS: PANTOPRAZOLE (EC) 40 MG TAB PO SCH (05:48)
[2016-11-08 06:05] LABS: BASOPHIL # 0.1 10^3/ul (0.0-0.1); BASOPHILS % 0.7 % (0.0-2.0); EOSINOPHILS # 0.1 10^3/ul (0.0-0.5); EOSINOPHILS % 1.4 % (0.0-7.0); HEMATOCRIT 44.6 % (42.0-52.0); HEMOGLOBIN 13.7 g/dl (14.0-18.0); LYMPHOCYTES # 1.7 10^3/ul (0.8-2.9); LYMPHOCYTES % 24.3 % (15.0-51.0); MEAN CORPUSCULAR HGB CONC 30.7 g/dl (32.0-37.0); MEAN CORPUSCULAR VOLUME 78.1 fl (82.0-101.0); MEAN PLATELET VOLUME 9.2 fl (7.4-10.4); MONOCYTE # 0.7 10^3/ul (0.3-0.9); NEUTROPHIL # 4.4 10^3/ul (1.6-7.5); NEUTROPHILS % 62.9 % (39.0-77.0); PLATELET COUNT 463 10^3/UL (140-415); RED BLOOD COUNT 5.71 10^6/ul (4.70-6.10); RED CELL DISTRIBUTION WIDTH 16.2 % (11.5-14.5)
[2016-11-08 06:20] LABS: CALCIUM 7.7 mg/dl (8.4-10.2); CREATININE 11.06 mg/dl (0.61-1.24); POTASSIUM 4.8 mmol/L (3.5-5.1)
[2016-11-08] MEDS: AL HYDROX/MG HYDROX/SIMETH 30 ML CUP PO SCH ×3 (09:03→21:00)
[2016-11-08] MEDS: CALCIUM ACETATE 667 MG CAP PO SCH ×3 (09:03→17:07)
[2016-11-08] MEDS: CALCITRIOL 0.25 MCG CAP PO SCH (09:03)
[2016-11-08] MEDS: FOLIC ACID 1 MG TAB PO SCH (09:03)
[2016-11-08] MEDS: CHOLECALCIFEROL 2,000 UNIT CAP PO SCH (09:03)
[2016-11-08] MEDS: MULTIVIT/CA CARB/B CMPLX/FA TAB PO SCH (09:03)
[2016-11-08] MEDS: APIXABAN 5 MG TABLET PO SCH (09:03)
[2016-11-08] MEDS: HYDROmorphONE 4 MG TAB PO SCH ×4 (09:03→21:35)
[2016-11-08] MEDS: LACTOBACILLUS RHAMNOSUS CAP PO SCH ×2 (09:03→21:35)
--- NOTE | 2016-11-08 16:59 | CONS ---
Date/Time of Note Date/Time of Note DATE: 11/08/16 TIME: 16:57 Assessment/Plan Assessment/Plan Chief Complaint/Hosp Course IMPRESSION: 1. Malfunctioning dialysis catheter. 2. End-stage renal disease. 3. Hyponatremia. 4. Hyperparathyroidism status post parathyroidectomy. 5. History of polycystic kidney disease. 6. The patient has secondary polycythemia. 7. History of diverticulosis. 8. History of gastritis. plan HD AND PLACE NEW CATH Problems: Consultation Date/Type/Reason Admit Date/Time Nov 04, 2016 at 23:06 Type of Consultation: renal 24 HR Interval Summary Constitutional: no complaints Exam/Review of Systems Vital Signs Vitals Vital Signs Date Time Temp Pulse Resp B/P Pulse Ox O2 Delivery O2 Flow Rate FiO2 11/08/16 07:28 97.5 77 20 107/53 100 11/06/16 20:30 Room Air 11/05/16 01:23 3.0 Intake and Output 11/07/16 11/07/16 11/08/16 15:00 23:00 07:00 Intake Total 600 ml 200 ml Balance 600 ml 200 ml Exam Neck: supple Respiratory: clear to auscultation Cardiovascular: regular rate and rhythm Gastrointestinal: soft Extremities: No edema Neurological: confused Results Result Diagram: 11/08/16 0508 11/08/16 0508 Results 24 hrs Laboratory Tests Test 11/08/16 05:08 White Blood Count 7.0 Red Blood Count 5.71 Hemoglobin 13.7 L Hematocrit 44.6 Mean Corpuscular Volume 78.1 L Mean Corpuscular Hemoglobin 24.0 L Mean Corpuscular Hemoglobin Concent 30.7 L Red Cell Distribution Width 16.2 H Platelet Count 463 H Mean Platelet Volume 9.2 Neutrophils % 62.9 Lymphocytes % 24.3 Monocytes % 10.0 Eosinophils % 1.4 Basophils % 0.7 Nucleated Red Blood Cells % 0.0 Neutrophils # 4.4 Lymphocytes # 1.7 Monocytes # 0.7 Eosinophils # 0.1 Basophils # 0.1 Nucleated Red Blood Cells # 0.0 Sodium Level 138 Potassium Level 4.8 Chloride Level 98 Carbon Dioxide Level 23 Anion Gap 22 H Blood Urea Nitrogen 70 H Creatinine 11.06 H Glucose Level 92 Calcium Level 7.7 L Medications Medications Current Medications Acetaminophen/ Hydrocodone Bitart ([place] ([address])) 1 tab Q4H PRN PO pain Last administered on 11/08/16 11:50; Admin Dose 1 TAB; Start 11/05/16 at 02:00 Ondansetron HCl (Zofran Inj) 4 mg Q6H PRN IV NAUSEA AND/OR VOMITING; Start 11/05 at 05:00 Acetaminophen (Tylenol Tab) 650 mg Q6H PRN PO PAIN LEVEL 1-3 OR FEVER; Start at 05:00 Morphine Sulfate (morphine) 2 mg Q4H PRN IV SEVERE PAIN LEVEL 7-10; Start at 05:00 Calcitriol (Rocaltrol) 0.5 mcg DAILY PO Last administered on 11/08/16 09:03; Admin Dose 0.5 MCG; Start 11/05/16 at 09:00 Cholecalciferol (Vitamin D) 2,000 unit DAILY PO Last administered on 11/08/16 09:03; Admin Dose 2,000 UNIT; Start 11/05/16 at 09:00 Folic Acid (Folic Acid) 1 mg DAILY PO Last administered on 11/08/16 09:03; Admin Dose 1 MG; Start 11/05/16 at 09:00 Hydromorphone HCl (Dilaudid) 4 mg QID PO Last administered on 11/08/16 13:14; Admin Dose 4 MG; Start 11/05/16 at 09:00 Multivit/Ca Carb/ B Cmplx/FA/Prenat ([place]-Raul) 1 tab DAILY PO Last administered on 11/08/16 09:03; Admin Dose 1 TAB; Start 11/05/16 at 09:00 Pantoprazole (Protonix Tab) 40 mg DAILY@06 PO Last administered on 11/08/16 05 :48; Admin Dose 40 MG; Start 11/05/16 at 06:00 Zolpidem Tartrate (Ambien) 5 mg QHS PRN PO INSOMNIA Last administered on 22:08; Admin Dose 5 MG; Start 11/05/16 at 05:00 Al Hydrox/Mg Hydrox/Simethicone (Mag-Al Plus) 10 ml TID PO Last administered on 11/08/16 09:03; Admin Dose 10 ML; Start 11/05/16 at 09:00 Docusate Sodium (Colace Liquid Cup) 100 mg BID PRN PO CONSTIPATION; Start at 17:30 Apixaban (Eliquis) 2.5 mg BID PO Last administered on 11/08/16 09:03; Admin Dose 2.5 MG; Start 11/06/16 at 21:00 Lactobacillus Acidophilus/ Rhamnosus (Culturelle) 1 cap BID PO Last administered on 11/08/16 09:03; Admin Dose 1 CAP; Start 11/06/16 at 21:00 PHAN FITZGERALD MD Nov 08, 2016 16:59
--- NOTE | 2016-11-08 17:53 | PN ---
Date/Time of Note Date/Time of Note DATE: 11/08/16 TIME: 17:51 Assessment/Plan VTE Prophylaxis VTE Prophylaxis Intervention: other (Eliquis ) Lines/Catheters IV Catheter Type (from Nrs): [place] Urinary Cath still in place: No Assessment/Plan Assessment/Plan 1. Dialysis catheter malfunction. Stable, Cont HD. Restart Eliquis as no plan for surgery at this time. 2. Superior vena cava thrombus; restart Eliquis 3. ESRD continue HD 4. Chronic polycystic kidney disease 5. Chronic pulmonary embolism, stable restart Eliquis 6. IVC filter status plan: s/p HD today AM, catheter did not work well, plan is to change HD catheter as per nephrology from nephrology has been following Bp stable Subjective 24 Hr Interval Summary Free Text/Dictation HD catheter did not work well, Bp stable, Exam/Review of Systems Vital Signs Vitals Vital Signs Date Time Temp Pulse Resp B/P Pulse Ox O2 Delivery O2 Flow Rate FiO2 11/08/16 07:28 97.5 77 20 107/53 100 11/06/16 20:30 Room Air 11/05/16 01:23 3.0 Intake and Output 11/07/16 11/07/16 11/08/16 15:00 23:00 07:00 Intake Total 600 ml 200 ml Balance 600 ml 200 ml Results Result Diagram: 11/08/16 0508 11/08/16 0508 Results 24 hrs Laboratory Tests Test 11/08/16 05:08 White Blood Count 7.0 Red Blood Count 5.71 Hemoglobin 13.7 L Hematocrit 44.6 Mean Corpuscular Volume 78.1 L Mean Corpuscular Hemoglobin 24.0 L Mean Corpuscular Hemoglobin Concent 30.7 L Red Cell Distribution Width 16.2 H Platelet Count 463 H Mean Platelet Volume 9.2 Neutrophils % 62.9 Lymphocytes % 24.3 Monocytes % 10.0 Eosinophils % 1.4 Basophils % 0.7 Nucleated Red Blood Cells % 0.0 Neutrophils # 4.4 Lymphocytes # 1.7 Monocytes # 0.7 Eosinophils # 0.1 Basophils # 0.1 Nucleated Red Blood Cells # 0.0 Sodium Level 138 Potassium Level 4.8 Chloride Level 98 Carbon Dioxide Level 23 Anion Gap 22 H Blood Urea Nitrogen 70 H Creatinine 11.06 H Glucose Level 92 Calcium Level 7.7 L Medications Medications Current Medications Acetaminophen/ Hydrocodone Bitart ([place] (10/325)) 1 tab Q4H PRN PO pain Last administered on 11/08/16 11:50; Admin Dose 1 TAB; Start 11/05/16 at 02:00 Ondansetron HCl (Zofran Inj) 4 mg Q6H PRN IV NAUSEA AND/OR VOMITING; Start 11/05 at 05:00 Acetaminophen (Tylenol Tab) 650 mg Q6H PRN PO PAIN LEVEL 1-3 OR FEVER; Start at 05:00 Morphine Sulfate (morphine) 2 mg Q4H PRN IV SEVERE PAIN LEVEL 7-10; Start at 05:00 Calcitriol (Rocaltrol) 0.5 mcg DAILY PO Last administered on 11/08/16 09:03; Admin Dose 0.5 MCG; Start 11/05/16 at 09:00 Cholecalciferol (Vitamin D) 2,000 unit DAILY PO Last administered on 11/08/16 09:03; Admin Dose 2,000 UNIT; Start 11/05/16 at 09:00 Folic Acid (Folic Acid) 1 mg DAILY PO Last administered on 11/08/16 09:03; Admin Dose 1 MG; Start 11/05/16 at 09:00 Hydromorphone HCl (Dilaudid) 4 mg QID PO Last administered on 11/08/16 17:07; Admin Dose 4 MG; Start 11/05/16 at 09:00 Multivit/Ca Carb/ B Cmplx/FA/Prenat ([place]-Raul) 1 tab DAILY PO Last administered on 11/08/16 09:03; Admin Dose 1 TAB; Start 11/05/16 at 09:00 Pantoprazole (Protonix Tab) 40 mg DAILY@06 PO Last administered on 11/08/16 05 :48; Admin Dose 40 MG; Start 11/05/16 at 06:00 Zolpidem Tartrate (Ambien) 5 mg QHS PRN PO INSOMNIA Last administered on 22:08; Admin Dose 5 MG; Start 11/05/16 at 05:00 Al Hydrox/Mg Hydrox/Simethicone (Mag-Al Plus) 10 ml TID PO Last administered on 11/08/16 09:03; Admin Dose 10 ML; Start 11/05/16 at 09:00 Docusate Sodium (Colace Liquid Cup) 100 mg BID PRN PO CONSTIPATION; Start at 17:30 Apixaban (Eliquis) 2.5 mg BID PO Last administered on 11/08/16 09:03; Admin Dose 2.5 MG; Start 11/06/16 at 21:00 Lactobacillus Acidophilus/ Rhamnosus (Culturelle) 1 cap BID PO Last administered on 11/08/16 09:03; Admin Dose 1 CAP; Start 11/06/16 at 21:00 DAYDAY DODSON MD Nov 08, 2016 17:53
[2016-11-08] MEDS ORDERED: APIXABAN 5 MG TABLET PO SCH (21:00)
[2016-11-08] MEDS: ZOLPIDEM 5 MG TAB PO PRN (23:01)
[2016-11-09 05:49] LABS: ADD SCAN DIFF NO
[2016-11-09 05:51] LABS: BASOPHIL # 0.1 10^3/ul (0.0-0.1); BASOPHILS % 0.7 % (0.0-2.0); EOSINOPHILS # 0.1 10^3/ul (0.0-0.5); EOSINOPHILS % 1.5 % (0.0-7.0); HEMATOCRIT 47.8 % (42.0-52.0); HEMOGLOBIN 14.3 g/dl (14.0-18.0); LYMPHOCYTES # 1.6 10^3/ul (0.8-2.9); LYMPHOCYTES % 20.7 % (15.0-51.0); MEAN CORPUSCULAR HEMOGLOBIN 23.7 pg (29.0-33.0); MEAN CORPUSCULAR HGB CONC 29.9 g/dl (32.0-37.0); MEAN CORPUSCULAR VOLUME 79.1 fl (82.0-101.0); MEAN PLATELET VOLUME 9.1 fl (7.4-10.4); MONOCYTE # 0.7 10^3/ul (0.3-0.9); MONOCYTES % 9.4 % (0.0-11.0); PLATELET COUNT 524 10^3/UL (140-415); RED BLOOD COUNT 6.04 10^6/ul (4.70-6.10); RED CELL DISTRIBUTION WIDTH 16.8 % (11.5-14.5); WHITE BLOOD COUNT 7.5 10^3/ul (4.8-10.8)
[2016-11-09] MEDS: PANTOPRAZOLE (EC) 40 MG TAB PO SCH (06:00)
[2016-11-09 06:15] LABS: INR 1.19; PROTIME 15.2 Sec (12.2-14.2); PT RATIO 1.2
[2016-11-09 06:16] LABS: PARTIAL THROMBOPLASTIN TIME 46.1 Sec (25.0-35.0)
[2016-11-09 06:46] LABS: CALCIUM 8.1 mg/dl (8.4-10.2); CREATININE 8.98 mg/dl (0.61-1.24); POTASSIUM 4.4 mmol/L (3.5-5.1)
[2016-11-09] MEDS ORDERED: EPINEPHrine 0.1 MG/ML SYG ONE ×2 (07:00→13:00)
[2016-11-09] MEDS ORDERED: CA CHLORIDE 10% 10 ML SYRINGE ONE ×2 (07:00→13:00)
[2016-11-09 07:36] VITALS: BP 94/66; RESP 20
[2016-11-09] MEDS: CALCIUM ACETATE 667 MG CAP PO SCH (08:15)
[2016-11-09] MEDS: MULTIVIT/CA CARB/B CMPLX/FA TAB PO SCH (09:00)
[2016-11-09] MEDS: CALCITRIOL 0.25 MCG CAP PO SCH (09:00)
[2016-11-09] MEDS: CHOLECALCIFEROL 2,000 UNIT CAP PO SCH (09:00)
[2016-11-09] MEDS: LACTOBACILLUS RHAMNOSUS CAP PO SCH (09:00)
[2016-11-09] MEDS: FOLIC ACID 1 MG TAB PO SCH (09:00)
[2016-11-09] MEDS: AL HYDROX/MG HYDROX/SIMETH 30 ML CUP PO SCH (09:00)
[2016-11-09] MEDS: HYDROmorphONE 4 MG TAB PO SCH (11:09)
[2016-11-09] MEDS ORDERED: HEPARIN 1000 UNITS/ML 10 ML INJ ONE (11:58)
[2016-11-09] MEDS ORDERED: LIDOCAINE 1% (MDV) 20 ML INJ ONE (11:58)
[2016-11-09] MEDS ORDERED: MIDAZOLAM 1 MG/ML 2 ML INJ ONE (12:16)
[2016-11-09] MEDS ORDERED: FENTAnyl 50 MCG/ML VIAL ONE (12:17)
[2016-11-09] MEDS ORDERED: SODIUM CL BACTERIOSTATIC 30 ML INJ ONE (13:00)
[2016-11-09] MEDS ORDERED: DEXTROSE 50% 50 ML SYRINGE ONE (13:00)
[2016-11-09] MEDS ORDERED: NA BICARBONATE 8.4% 50 ML SYG ONE (13:00)
[2016-11-09] MEDS ORDERED: FLUMAZENIL 0.5 MG INJ ONE (13:36)
--- NOTE | 2016-11-09 14:03 | EN ---
Date/Time of Note Date/Time of Note DATE: 11/09/16 TIME: 13:57 ER Progress Note I was called to the patient's bedside because of a CODE BLUE. In short: This is a 51-year-old male undergoing exchange of catheter to the left subclavian vein who rapidly became unresponsive with PEA arrest. Upon my arrival ACLS was initiated, the patient was being bagged. General: Unresponsive Head: Normocephalic, atraumatic Eyes: Fixed and dilated pupils ENT: Moist mucous membranes Neck: Supple, no lymphadenopathy Respiratory: No spontaneous respiratory activity Cardiovascular: No spontaneous cardiac activity Abdominal: Soft, non-protuberant, no pulsatile mass : Deferred MSK: No spontaneous motor activity Neurologic: No spontaneous neurologic activity Skin: Left subclavian vascular catheter in good position, no significant hemorrhage Cardiopulmonary Resuscitation by me: See code documentation for specific details. ACLS and BLS were performed with high quality chest compressions and minimal interruptions. Reversible causes were assessed and treated. CODE BLUE events: Upon arrival ACLS was directed, the patient was rapidly intubated by myself. Please see documentation below. I assess the patient's airway multiple times to assure for intubation given that he had agonal respirations and somewhat difficult visualization. Using a glide scope I was able to directly confirm placement of endotracheal tube through the cords. The patient had multiple re-evaluations of bilateral breath sounds with good color change. The patient had multiple rounds of ACLS for approximately 30 minutes. The patient received multiple doses of epinephrine, calcium, bicarb, was given dextrose and atropine without significant return of spontaneous circulation. The patient's rhythm strip and pads continued to read PEA with no return of spontaneous circulation. The patient had bilateral breath sounds without evidence of pneumothorax his trachea was midline without evidence of tamponade. A bedside ultrasound was performed that showed no cardiac contractility, no pericardial effusion, no evidence of tamponade physiology. During this timeframe the patient never regained pulses. The patient had adequate airway, he had no signs of tamponade physiology. All attempts with reversal agents were made as well. A bedside cardiac ultrasound showed no evidence of spontaneous cardiac activity. The patient had agonal respirations without evidence of spontaneous neurologic activity, no spontaneous respiratory effort. After excessive efforts of resuscitation further efforts are now futile. Time of was called at 1351. Please see nursing documentation for full resuscitation course. Procedure: Intubation Note: Indication: Airway protection Consent: This was an emergent situation, implied consent was observed RSI Medications: None required Tube size: 7.5 Secured at: 23 at the lip Procedure: Endotracheal intubation was performed. The patient was preoxygenated with supplemental oxygen, the room was set up with emergent airway equipment including [id number], suction, adjunct airways. Direct visualization of the cords was performed with direct laryngoscopy using a 4.0 Mac blade, insertion of the endotracheal tube through the cords was visualized by the nuclear operator. Bilateral breath sounds were auscultated, color change was observed. The tube was then secured in a postintubation chest x-ray was ordered. The patient tolerated the procedure well there were no complications. Confirmation with Glidescope direct visualization of endotracheal tube passing through the cords Emergency Bedside Ultrasound: Indication: Cardiac arrest Probe Type: Cardiac from Findings: Enlarged heart without evidence of contractility, no spontaneous cardiac activity, no pericardial effusion Disposition: with time of at 1351 Diagnostic impression: PEA cardiac arrest Family to be notified by primary team. I have made myself available if needed. RO VINSON MD Nov 09, 2016 14:03
--- NOTE | 2016-11-09 14:50 | RADRPT ---
PROCEDURE: Over the wire exchange of left internal jugular vein tunneled dialysis catheter. CLINICAL INDICATION: Renal failure. The existing dialysis catheter is not functioning. TECHNIQUE: Prior to the procedure, informed consent was obtained. Risks including bleeding, infection, and pneu mothorax were explained to the patient. The patient understood and was willing to proceed. A procedu ral pause was performed. The patient's name, date of , and procedure to be performed were verif ied. The central line was inserted with all elements of maximal sterile barrier technique. All of the fol lowing were used: head covering, facial mask, sterile gown, sterile gloves, a large sterile sheet, h and hygiene, and 2% chlorhexidine for cutaneous antisepsis. The left neck and anterior/superior ch est wall was prepped and draped in usual sterile fashion. During the procedure, the patient received 0.5 mg of Versed and 25 mcg of Fentanyl. Following the local injection of Xylocaine, the existing left internal jugular vein dialysis cathete r was dissected out using blunt dissection. The catheter was removed with fluoroscopic guidance ove r a 0.035-inch guide wire. The new 14.5 Czech 23 cm long tip to cuff Palindrome dialysis catheter was advanced over the guide wire. The guidewire was removed. The tip of the catheter was confirmed in position within the upper right atrium. There was continuous cardiac monitoring during the procedure and there were no arrhyt hmias. There was no possibility of air embolism during the procedure as the wound in the chest wall was kept closed by manual pressure at all times. The 2 ports were each flushed with 2 ml of 1:1000 heparin. The catheter was secured to the skin with 2-0 silk. The site was dressed. The patient tolerated the procedure well. Immediately following the procedure, the patient had difficulty breathing and went into cardiorespiratory arrest. A code blue was immed iately called. COMPARISON: None. FINDINGS: Final images demonstrate the tip of the catheter in the mid right atrium. A total of 13.7 seconds o f fluoroscopy time was used. Postprocedure chest image demonstrates no pneumothorax. During the cod e blue, limited cardiac ultrasound was performed which demonstrated no pericardial effusion. IMPRESSION: 1. Percutaneous replacement of left internal jugular dialysis tunneled dialysis catheter under fluo roscopic guidance. 2. The patient had a cardiorespiratory arrest immediately following the procedure. RPTAT: QQ .Luís Morales MD, MD Date Time Electronically viewed and signed by .Luís Morales MD, MD on 11/09/2016 14:50 .R/
[2016-11-09] MEDS ORDERED: APIXABAN 5 MG TABLET PO SCH (21:00)
== END 2016-11-09 13:51 | disposition expired | DRG 314 ==
LOC: E/R 15:20 → MS2 23:06
PROVIDERS: ADMIT Internal Medicine; ATTEND Internal Medicine
PROC: 0BH17EZ Insertion of Endotracheal Airway into Trachea, Via Natural or Artificial Opening (ICD-10-PCS; principal; 2016-11-09)
PROC: 5A12012 Performance of Cardiac Output, Single, Manual (ICD-10-PCS; 2016-11-09)
DX: T82.41XA Breakdown (mechanical) of vascular dialysis catheter, initial encounter (principal); N18.6 End stage renal disease; I27.82 Chronic pulmonary embolism; I82.210 Acute embolism and thrombosis of superior vena cava; I12.0 Hypertensive chronic kidney disease with stage 5 chronic kidney disease or end stage renal disease; Q61.3 Polycystic kidney, unspecified; E87.1 Hypo-osmolality and hyponatremia; I46.9 Cardiac arrest, cause unspecified; G89.4 Chronic pain syndrome; R10.9 Unspecified abdominal pain; E21.3 Hyperparathyroidism, unspecified; Z99.2 Dependence on renal dialysis; Z79.01 Long term (current) use of anticoagulants; Y84.8 Other medical procedures as the cause of abnormal reaction of the patient, or of later complication, without mention of misadventure at the time of the procedure
CPT/HCPCS: 31500; 36415; 36581; 71260; 74177; 80048; 80053; 82306; 83036; 83690; 83735; 84100; 84443; 84484; 85025; 85610; 85730; 90935; 92950; 93005; 96374; 96375; C1750; J0171; J1170; J1644; J2250; J2405; J2765; J2997; J3010; Q9967